=== PATIENT | male | born 1980 | race Caucasian/White ===

== ENCOUNTER 2017-05-11 23:48 | Outpatient (CLI) | payer MEDICAID | END 2017-05-11 23:49 | disposition critical access hospital (66) | LOC: EMS 23:48 | PROVIDERS: ATTEND Surgery | DX: R45.851 Suicidal ideations (principal) | CPT/HCPCS: A0425; A0429 ==

== ENCOUNTER 2017-05-12 00:09 | Emergency (ER) | payer MEDICAID ==
--- NOTE | 2017-05-12 00:23 | ED Physician Documentation ---
PD HPI MHE - Stated complaint Stated Complaint: SI - Chief complaint Chief Complaint: MHE - History obtained from History obtained from: Patient - History of Present Illness Primary symptom: Depression, Anxiety. No: Aggressive behavior (thoughts of aggression, but has not acted on them) Timing - onset: Today Pain level max: 0 Pain level now: 0 Similar symptoms before: Has not had sx before Recently seen: Not recently seen - Additional information Additional information: feels anxious, angry, I want to punch everything (per patient). started earlier today and progressed in severity. no apparent trigger for this, denies feeling this way previously except once, many years ago. he is pacing and in obvious distress, upset and appears afraid and anxious Review of Systems Cardiac: reports: Reviewed and negative Respiratory: reports: Reviewed and negative GI: reports: Reviewed and negative Neurologic: reports: Reviewed and negative Psychiatric: reports: Depressed, Anxiety. denies: Suicidal, Homicidal, Hallucinations, Delusions PD PAST MEDICAL HISTORY - Past Medical History Past Medical History: Yes Cardiovascular: Hypertension - Past Surgical History Past Surgical History: No - Present Medications Home Medications: Ambulatory Orders Medication Instructions Recorded Confirmed Fluoxetine HCl 20 mg PO DAILY 05/12/17 05/12/17 Lisinopril 20 mg PO DAILY 05/12/17 05/12/17 Metoprolol Succinate 200 mg PO DAILY 05/12/17 05/12/17 - Allergies Allergies/Adverse Reactions: Allergies Allergy/AdvReac Type Severity Reaction Status Date / Time No Known Drug Allergies Allergy Verified 05/12/17 00:18 - Social History Does the pt drink ETOH?: Yes PD ED PE NORMAL - Vitals Vital signs reviewed: Yes - General General: Alert and oriented X 3, Well developed/nourished, Other (pacing the room during HPI, brief ROS. he appears anxious, angry (but not threatening to me or staff), afraid, tearful at times) - HEENT HEENT: PERRL - Cardiac Cardiac: RRR, No murmur - Respiratory Respiratory: No respiratory distress, Clear bilaterally - Abdomen Abdomen: Soft, Non tender - Derm Derm: Normal color, Warm and dry - Neuro Neuro: Alert and oriented X 3, aircraft maintenance engineer 2-12 intact, No motor deficit, No sensory deficit, Normal speech Eye Opening: Spontaneous Motor: Obeys Commands Verbal: Oriented GCS Score: 15 PD ED PE EXPANDED - Psych Psych: Intoxicated / AOB, Tearful, Anxious, Agitated Results - Vitals Vitals: Oxygen O2 Source Room air - Labs Labs: Laboratory Tests 05/12/17 05/12/17 05/12/17 00:30 01:12 01:12 WBC 12.7 H RBC 5.02 Hgb 13.8 L Hct 41.9 L MCV 83.4 MCH 27.5 MCHC 33.0 RDW 13.6 Plt Count 234 MPV 8.2 Neut # 7.5 H Lymph # 4.0 H [place] # 0.9 Eos # 0.2 Baso # 0.1 Absolute Nucleated RBC 0.01 Nucleated RBC % 0.1 Sodium 142 Potassium 3.6 Chloride 106 Carbon Dioxide 23 Anion Gap 13.0 BUN 17 Creatinine 1.1 Estimated GFR (MDRD) 75 L Glucose 126 H Calcium 9.0 Urine Color YELLOW Urine Clarity CLEAR Urine pH 5.5 Ur Specific [place] 1.010 Urine Protein NEGATIVE Urine Glucose (UA) NEGATIVE Urine Ketones NEGATIVE Urine Occult Blood NEGATIVE Urine Nitrite NEGATIVE Urine Bilirubin NEGATIVE Urine Urobilinogen 0.2 (NORMAL) Ur Leukocyte Esterase NEGATIVE Ur Microscopic Review NOT INDICATED Urine Culture Comments NOT INDICATED Salicylates < 6.0 Urine Opiates Screen NEGATIVE Ur Oxycodone Screen NEGATIVE Urine Methadone Screen NEGATIVE Ur Propoxyphene Screen NEGATIVE Acetaminophen < 10 L Ur Barbiturates Screen NEGATIVE Ur Tricyclics Screen NEGATIVE Ur Phencyclidine Scrn NEGATIVE Ur Amphetamine Screen NEGATIVE U Methamphetamines Scrn NEGATIVE U Benzodiazepines Scrn NEGATIVE Urine Cocaine Screen NEGATIVE U Cannabinoids Screen POSITIVE H Ethyl Alcohol 161.3 PD MEDICAL DECISION MAKING - ED course Complexity details: reviewed results, re-evaluated patient, considered differential, d/w patient ED course: given IM Zyprexa with good effect, slept for several hours overnight. in AM, he was easily awoken to verbal stimulation, reports feeling much improved. he is calm, cooperative. he denies SI, denies anxiety or aggressive thoughts. seen by IBETH cardenas cleared for discharge home, which patient is comfortable with. Departure - Departure Disposition: 01 Home, Self Care Clinical Impression: Alcoholic intoxication, Anxiety, Depression Condition: Good Instructions: ED Depression, ED Alcohol Intoxication Comments: Follow up as per the social media project manager's recommendations Discharge Date/Time: 05/12/17 08:53
[2017-05-12] MEDS ORDERED: OLANZapine 10 MG VIAL IM ONE (00:35)
[2017-05-12] MEDS ORDERED: OLANZapine 10 MG VIAL IM STA (00:48)
[2017-05-12 01:25] LABS: BASOPHILS # (AUTO) 0.1 10^3/uL (0.0-0.1); BASOPHILS % (AUTO) 1.1 %; EOSINOPHILS # (AUTO) 0.2 10^3/uL (0.0-0.7); EOSINOPHILS % (AUTO) 1.5 %; HGB - HEMOGLOBIN 13.8 g/dL (14.0-18.0); LYMPHOCYTES % (AUTO) 31.6 %; MEAN CORPUSCULAR HEMOGLOBIN 27.5 pg (27.0-31.0); MEAN CORPUSCULAR VOLUME 83.4 fL (80.0-94.0); MEAN PLATELET VOLUME 8.2 fL (7.4-11.4); MONOCYTES # (AUTO) 0.9 10^3/uL (0.0-1.0); MONOCYTES % (AUTO) 6.9 %; NEUTROPHILS # (AUTO) 7.5 10^3/uL (1.5-6.6); NEUTROPHILS % (AUTO) 58.9 %; PLT - PLATELET COUNT 234 10^3/uL (130-450); RED BLOOD COUNT 5.02 10^6/uL (4.70-6.10); RED CELL DISTRIBUTION WIDTH 13.6 % (12.0-15.0); WHITE BLOOD COUNT 12.7 x10^3/uL (4.8-10.8)
[2017-05-12 01:26] LABS: MUDS CUTOFF CONCENTRATIONS CUTOFF CONC BELOW:
[2017-05-12 01:30] LABS: ACETAMINOPHEN < 10 ug/mL (10-30); BUN - BLOOD UREA NITROGEN 17 mg/dL (6-20); CARBON DIOXIDE - CO2 23 mmol/L (21-32); CHLORIDE 106 mmol/L (101-111); CREATININE 1.1 mg/dL (0.6-1.2); GFR - MDRD 75 (>89); GLUCOSE 126 mg/dL (70-100); SALICYLATE < 6.0 mg/dL; SODIUM 142 mmol/L (135-145)
[2017-05-12 01:35] LABS: BILIRUBIN,URINE NEGATIVE (NEGATIVE); GLUCOSE, URINE (UA) NEGATIVE (NEGATIVE); KETONES,URINE (UA) NEGATIVE (NEGATIVE); LEUKOCYTE ESTERASE, URINE NEGATIVE (NEGATIVE); NITRITE,URINE NEGATIVE (NEGATIVE); OCCULT BLOOD,URINE NEGATIVE (NEGATIVE); PH,URINE 5.5 PH (5.0-7.5); PROTEIN,URINE NEGATIVE (NEGATIVE); UROBILINOGEN,URINE 0.2 (NORMAL) E.U./dL (NORMAL)
[2017-05-12 01:44] LABS: AMPHETAMINE SCREEN,URINE NEGATIVE (NEGATIVE); BENZODIAZEPINES SCREEN, URINE NEGATIVE (NEGATIVE); CLARITY,URINE CLEAR (CLEAR); COCAINE SCREEN URINE NEGATIVE (NEGATIVE); METHADONE SCREEN, URINE NEGATIVE (NEGATIVE); METHAMPHETAMINES SCREEN, URINE NEGATIVE (NEGATIVE); OPIATE SCREEN, URINE NEGATIVE (NEGATIVE); OXYCODONE SCREEN, URINE NEGATIVE (NEGATIVE); PROPOXYPHENE SCREEN, URINE NEGATIVE (NEGATIVE); TRICYCLIC ANTIDEPRESSANT,URINE NEGATIVE (NEGATIVE)
[2017-05-12 08:54] VITALS: BP 164/100
== END 2017-05-12 08:53 | disposition home or self-care (01) ==
LOC: ED 00:09
DX: F10.120 Alcohol abuse with intoxication, uncomplicated (principal); F32.9 Major depressive disorder, single episode, unspecified; F41.9 Anxiety disorder, unspecified; I10 Essential (primary) hypertension
CPT/HCPCS: 36415; 80048; 80306; 80307; 80320; 80329; 81001; 81003; 85025; 87086; 96372; 99283; 99284

== ENCOUNTER 2018-02-13 17:14 | Emergency (ER) | payer MEDICAID ==
[2018-02-13] MEDS ORDERED: MELOXICAM 7.5 MG TABLET PO STA (17:59)
[2018-02-13] MEDS ORDERED: TETANUS/DIPHTHERIA/PERTUSSIS 0.5 ML SYRINGE IM ONE (18:00)
--- NOTE | 2018-02-13 18:00 | ED Physician Documentation ---
PD HPI LOWER EXT INJURY - Stated complaint Stated Complaint: L FOOT INJ - Chief complaint Chief Complaint: Ext Problem - History obtained from History obtained from: Patient - History of Present Illness PD HPI LOW EXT INJURY LOCATION: Left, Foot Type of injury: Fall (walking up stairs today) Where injury occurred: Home Timing - onset: Today Timing - duration: Hours (5) Timing - details: Gradual onset Pain level max: 5 Pain level now: 5 Improved by: Rest, Ice, Immobilization Worsened by: Moving, Palpating Associated symptoms: Tingling, Swelling. No: Weakness, Numbness Contributing factors: No: Anticoagulated, Prior ortho surgery, Prosthetic joint, Work related Similar symptoms before: Has not had sx before Recently seen: Not recently seen - Additional information Additional information: injured dorsum of foot on stairs Review of Systems Constitutional: denies: Fever GI: denies: Vomiting Neurologic: denies: Focal weakness, Numbness PD PAST MEDICAL HISTORY - Past Medical History Past Medical History: Yes Cardiovascular: Hypertension Respiratory: Sleep apnea Endocrine/Autoimmune: Type 2 diabetes Psych: Depression, Anxiety - Past Surgical History Past Surgical History: No HEENT: Tonsil/Adenoidectomy - Present Medications Home Medications: Ambulatory Orders Medication Instructions Recorded Confirmed Fluoxetine HCl 20 mg PO DAILY 05/12/17 05/12/17 Lisinopril 20 mg PO DAILY 05/12/17 05/12/17 Metoprolol Succinate 200 mg PO DAILY 05/12/17 05/12/17 Meloxicam [Mobic] 15 mg PO DAILY PRN #20 tablet 02/13/18 - Allergies Allergies/Adverse Reactions: Allergies Allergy/AdvReac Type Severity Reaction Status Date / Time No Known Drug Allergies Allergy Verified 02/13/18 17:29 - Social History Does the pt smoke?: Yes Smoking Status: Current every day smoker Does the pt drink ETOH?: Yes Does the pt have substance abuse?: Yes - Immunizations Immunizations are current?: Yes - POLST Patient has POLST: No PD ED PE NORMAL - Vitals Vital signs reviewed: Yes - General General: Alert and oriented X 3, No acute distress - HEENT HEENT: Moist mucous membranes - Derm Derm: Warm and dry - Extremities Extremities: Other (L foot - Swelling and ecchymosis to the dorsum of the foot. Abrasion present. Tenderness over the dorsum. NVI) - Neuro Neuro: Alert and oriented X 3 Results - Vitals Vitals: Vital Signs - 24 hr 02/13/18 02/13/18 17:24 19:01 Temperature 36.6 C 37.1 C Heart Rate 102 H 90 Respiratory 18 20 Rate Blood Pressure 174/116 H 187/120 H O2 Saturation 98 99 Oxygen O2 Source Room air - Rads (name of study) L foot xray Radiology: Prelim report reviewed, EMP read contemporaneously, See rad report (No acute bony abnormality) PD MEDICAL DECISION MAKING - ED course Complexity details: reviewed results, re-evaluated patient, considered differential, d/w patient ED course: Patient with a left foot sprain/contusion. Placed in a postoperative shoe and given crutches. Wound care performed. Tdap given. We will continue supportive care and follow-up with his doctor for further evaluation in 1 week if he is still having symptoms. Patient counseled regarding signs and symptoms for which I believe and urgent re-evaluation would be necessary. Patient with good understanding of and agreement to plan and is comfortable going home at this time This document was made in part using voice recognition software. While efforts are made to proofread this document, sound alike and grammatical errors may occur. Departure - Departure Disposition: 01 Home, Self Care Clinical Impression: Sprain of left foot Qualifiers: Encounter type: initial encounter Qualified Code(s): S93.602A - Unspecified sprain of left foot, initial encounter Condition: Good Instructions: ED Sprain Foot Follow-Up: your,doctor in 1 week if not better [Other] Prescriptions: Meloxicam [Mobic] 15 mg PO DAILY PRN #20 tablet PRN Reason: pain Comments: Your x-ray is normal today. You may bear weight as tolerated. Return if you worsen. Follow-up with your doctor in 1 week if not better. Forms: Activity restrictions Discharge Date/Time: 02/13/18 19:14
--- NOTE | 2018-02-13 18:48 | XRAY Report ---
Reason: fall Procedure Date: 02/13/2018 Accession Number: [id number] / [id number] Procedure: XR - Foot 3 View LT CPT Code: FULL RESULT: EXAM: LEFT FOOT RADIOGRAPHY EXAM DATE: 02/13/2018 06:33 PM. CLINICAL HISTORY: Acute left foot pain and swelling status post trauma during a fall. COMPARISON: None. TECHNIQUE: 3 views. FINDINGS: Bones: Normal bone mineralization. No fractures or bone lesions. Joints: Normal. No subluxations. Soft Tissues: Localized soft tissue swelling dorsal to the metatarsal bones. The remaining soft tissue structures are unremarkable. IMPRESSION: 1. Localized soft tissue swelling dorsal to the metatarsal bones. 2. No fracture, subluxation or radiopaque foreign object. RADIA
[2018-02-13 19:01] VITALS: BP 187/120
== END 2018-02-13 19:14 | disposition home or self-care (01) ==
LOC: ED 17:14
DX: S93.602A Unspecified sprain of left foot, initial encounter (principal); S90.32XA Contusion of left foot, initial encounter; S90.812A Abrasion, left foot, initial encounter; W22.09XA Striking against other stationary object, initial encounter; Y93.01 Activity, walking, marching and hiking; Y92.009 Unspecified place in unspecified non-institutional (private) residence as the place of occurrence of the external cause; Z23 Encounter for immunization; I10 Essential (primary) hypertension; E11.9 Type 2 diabetes mellitus without complications; F17.200 Nicotine dependence, unspecified, uncomplicated
CPT/HCPCS: 73630; 90471; 90715; 99283; A9270

== ENCOUNTER 2018-07-24 05:45 | Emergency (ER) | payer MEDICAID ==
[2018-07-24] MEDS ORDERED: IPRATROPIUM/ALBUTEROL 3 ML NEB INH STA (06:01)
--- NOTE | 2018-07-24 06:07 | ED Physician Documentation ---
PD HPI URI - Stated complaint Stated Complaint: DRY COUGH - Chief complaint Chief Complaint: Resp - History obtained from History obtained from: Patient - History of Present Illness Timing - onset: How many days ago (2-3) Timing details: Gradual onset Pain level max: 0 Pain level now: 0 Associated symptoms: Nasal congestion, Rhinorrhea, Dry cough, Dyspnea (tightness). No: Fever, Chills, Sore throat, Hemoptysis, Chest pain, NVD Contributing factors: Other (smokes 1ppd) Similar symptoms before: Other (states dx with pneumonia last month and this feels similar. Is on lisinopril for HTN.) Review of Systems Constitutional: denies: Fever, Chills GI: denies: Vomiting, Diarrhea Skin: denies: Rash Musculoskeletal: denies: Neck pain, Back pain Neurologic: denies: Headache PD PAST MEDICAL HISTORY - Past Medical History Past Medical History: Yes Cardiovascular: Hypertension Respiratory: Pneumonia, Sleep apnea Endocrine/Autoimmune: Type 2 diabetes Psych: Depression, Anxiety - Past Surgical History Past Surgical History: Yes HEENT: Tonsil/Adenoidectomy - Present Medications Home Medications: Ambulatory Orders Medication Instructions Recorded Confirmed Fluoxetine HCl 20 mg PO DAILY 05/12/17 05/12/17 Lisinopril 20 mg PO DAILY 05/12/17 05/12/17 Metoprolol Succinate 200 mg PO DAILY 05/12/17 05/12/17 Meloxicam [Mobic] 15 mg PO DAILY PRN #20 tablet 02/13/18 Albuterol Sulf [Ventolin Hfa 1 - 2 puffs INH Q4HR PRN #1 inhaler 07/24/18 Inhaler] predniSONE [Deltasone] 10 mg PO [id number] #42 tab 07/24/18 - Allergies Allergies/Adverse Reactions: Allergies Allergy/AdvReac Type Severity Reaction Status Date / Time No Known Drug Allergies Allergy Verified 07/24/18 05:59 - Social History Does the pt smoke?: Yes Smoking Status: Current every day smoker Does the pt drink ETOH?: Yes Does the pt have substance abuse?: Yes - Immunizations Immunizations are current?: Yes - POLST Patient has POLST: No PD ED PE NORMAL - Vitals Vital signs reviewed: Yes - General General: Alert and oriented X 3, No acute distress, Well developed/nourished - HEENT HEENT: Ears normal, Moist mucous membranes, Pharynx benign - Neck Neck: Supple, no meningeal sign - Cardiac Cardiac: RRR, Strong equal pulses - Respiratory Respiratory: No respiratory distress, Other (diminished BS bilateral R>L) - Abdomen Abdomen: Soft, Non tender, Non distended - Derm Derm: Warm and dry - Extremities Extremities: No edema, No calf tenderness / cord - Neuro Neuro: Alert and oriented X 3 - Psych Psych: Normal mood, Normal affect Results - Vitals Vitals: Vital Signs - 24 hr 07/24/18 07/24/18 07/24/18 05:50 06:12 06:37 Temperature 36.3 C L Heart Rate 102 H 85 87 Respiratory 18 18 16 Rate Blood Pressure 194/104 H O2 Saturation 98 Oxygen O2 Source Room air - Rads (name of study) cxr Radiology: Prelim report reviewed, EMP read contemporaneously, See rad report (Mild to moderate CHF pattern. ) PD MEDICAL DECISION MAKING - ED course Complexity details: reviewed results, re-evaluated patient, considered differential, d/w patient ED course: 38-year-old male, well-appearing, nontoxic. Afebrile. No hypoxia. No respiratory distress. Feels better after nebulizer treatment and steroids. Will place on albuterol and steroids for home. May have a CHF component as well, will follow up with his doctor for further care of this. No evidence of pneumonia. Patient counseled regarding signs and symptoms for which I believe and urgent re-evaluation would be necessary. Patient with good understanding of and agreement to plan and is comfortable going home at this time This document was made in part using voice recognition software. While efforts are made to proofread this document, sound alike and grammatical errors may occur. Departure - Departure Disposition: 01 Home, Self Care Clinical Impression: Upper respiratory tract infection Qualifiers: URI type: unspecified viral URI Qualified Code(s): J06.9 - Acute upper respiratory infection, unspecified Condition: Good Instructions: ED Viral Syndrome Follow-Up: Kody Soto MD [Primary Care Provider] - Within 1 week Prescriptions: Albuterol Sulf [Ventolin Hfa Inhaler] 1 - 2 puffs INH Q4HR PRN #1 inhaler PRN Reason: Shortness Of Air/Wheezing predniSONE [Deltasone] 10 mg PO [id number] #42 tab Comments: Use the medications as prescribed. Return if you worsen. You may also have a component of congestive heart failure on your chest x-ray. This should be further evaluated with your doctor within the next week. You should likely have an echocardiogram and blood work performed.
[2018-07-24] MEDS ORDERED: ALBUTEROL NEB 2.5 MG/3 ML INH STA (06:17)
[2018-07-24] MEDS ORDERED: predniSONE 20 MG TABLET PO STA (06:17)
--- NOTE | 2018-07-24 06:47 | XRAY Report ---
Reason: cough Procedure Date: 07/24/2018 Accession Number: [id number] / [id number] Procedure: XR - Chest 2 View X-Ray CPT Code: 22160 FULL RESULT: EXAM: CHEST RADIOGRAPHY EXAM DATE: 07/24/2018 06:32 AM. CLINICAL HISTORY: Shortness of breath, nonproductive cough for 2 days, difficulty breathing on the left side. COMPARISON: None. TECHNIQUE: 2 views. FINDINGS: Lungs/Pleura: There is interlobular septal thickening. No significant pulmonary consolidation. There is pulmonary venous congestion. No definite pneumothorax. No significant effusion. Mediastinum: Mild to moderate enlargement of the cardiac silhouette. Other: None. IMPRESSION: Mild to moderate CHF pattern. RADIA
[2018-07-24 07:11] VITALS: BP 192/127
== END 2018-07-24 07:02 | disposition home or self-care (01) ==
LOC: ED 05:45
DX: J06.9 Acute upper respiratory infection, unspecified (principal); F17.210 Nicotine dependence, cigarettes, uncomplicated; I10 Essential (primary) hypertension; E11.9 Type 2 diabetes mellitus without complications
CPT/HCPCS: 71046; 94640; 94664; 99283; J7512

== ENCOUNTER 2018-09-04 07:45 | Outpatient (CLI) | payer MEDICAID ==
[2018-09-04 12:48] LABS: BASOPHILS # (AUTO) 0.1 10^3/uL (0.0-0.1); BASOPHILS % (AUTO) 0.5 %; EOSINOPHILS # (AUTO) 0.2 10^3/uL (0.0-0.7); EOSINOPHILS % (AUTO) 1.5 %; HGB - HEMOGLOBIN 13.1 g/dL (14.0-18.0); LYMPHOCYTES # (AUTO) 2.2 10^3/uL (1.5-3.5); LYMPHOCYTES % (AUTO) 20.7 %; MEAN CORPUSCULAR HEMOGLOBIN 25.8 pg (27.0-31.0); MEAN CORPUSCULAR HGB CONC 30.6 g/dL (32.0-36.0); MEAN CORPUSCULAR VOLUME 84.4 fL (80.0-94.0); MEAN PLATELET VOLUME 10.7 fL (7.4-11.4); MONOCYTES # (AUTO) 0.7 10^3/uL (0.0-1.0); MONOCYTES % (AUTO) 6.4 %; NEUTROPHILS # (AUTO) 7.6 10^3/uL (1.5-6.6); NEUTROPHILS % (AUTO) 70.4 %; PLT - PLATELET COUNT 203 10^3/uL (130-450); RED BLOOD COUNT 5.07 10^6/uL (4.70-6.10); RED CELL DISTRIBUTION WIDTH 15.9 % (12.0-15.0); WHITE BLOOD COUNT 10.8 x10^3/uL (4.8-10.8)
[2018-09-04 13:08] LABS: ALBUMIN 3.9 g/dL (3.2-5.5); ALBUMIN/GLOBULIN RATIO 1.2 (1.0-2.2); ALKALINE PHOSPHATASE 56 IU/L (42-121); ALT ALANINE AMINOTRANSFERASE 28 IU/L (10-60); AST ASPARTATE AMINOTRANSFERASE 21 IU/L (10-42); BILIRUBIN,TOTAL 1.3 mg/dL (0.2-1.0); BUN - BLOOD UREA NITROGEN 22 mg/dL (6-20); CALCIUM 8.8 mg/dL (8.5-10.3); CARBON DIOXIDE - CO2 26 mmol/L (21-32); CHLORIDE 109 mmol/L (101-111); CHOL/HDL RATIO 5.2 (<5.0); CHOLESTEROL 131 mg/dL; CREATININE 1.4 mg/dL (0.6-1.2); GFR - MDRD 56 (>89); GLUCOSE 155 mg/dL (70-100); HDL CHOLESTEROL 25 mg/dL; LDL CHOLESTEROL,CALCULATED 91 mg/dL; LDL/HDL RATIO 3.6 (<3.6); SODIUM 143 mmol/L (135-145); TOTAL PROTEIN 7.1 g/dL (6.7-8.2); VLDL CHOLESTEROL 15 mg/dL
[2018-09-04 13:11] LABS: HEMOGLOBIN A1C 0.72 g/dL; HEMOGLOBIN A1C % 6.9 % (4.6-6.2)
== END 2018-09-04 23:59 | disposition home or self-care (01) ==
LOC: LAB.N 07:45
PROVIDERS: ATTEND Family Medicine
DX: E78.5 Hyperlipidemia, unspecified (principal); E11.9 Type 2 diabetes mellitus without complications; I10 Essential (primary) hypertension; F41.8 Other specified anxiety disorders
CPT/HCPCS: 36415; 80053; 80061; 83036; 83721; 84443; 85025

== ENCOUNTER 2018-09-05 09:11 | Outpatient (CLI) | payer MEDICAID ==
[~2018-09-05 09:11] MED LIST: ALBUTEROL NEB 2.5 MG/3 ML INH ONE
== END 2018-09-05 09:12 | disposition home or self-care (01) ==
LOC: RT 09:11
PROVIDERS: ATTEND Family Medicine
DX: J45.909 Unspecified asthma, uncomplicated (principal)
CPT/HCPCS: 94060

== ENCOUNTER 2018-12-01 20:26 | Observation (INO) | payer MEDICAID ==
[2018-12-01] MEDS ORDERED: KETOROLAC 30 MG/ML VIAL IVP STA (20:52)
[2018-12-01] MEDS ORDERED: SODIUM CHLORIDE 0.9% 1,000 ML IV ONE (20:52)
[2018-12-01] MEDS ORDERED: HYDROmorphone 1 MG/ML CARPUJECT IVP STA (20:52)
[2018-12-01] MEDS ORDERED: ONDANSETRON 4 MG/2 ML VIAL IVP STA (20:52)
--- NOTE | 2018-12-01 20:53 | ED Physician Documentation ---
PD HPI ABD PAIN - Stated complaint Stated Complaint: ABD PX RT SIDE, SOA - Chief complaint Chief Complaint: Abd Pain - History obtained from History obtained from: Patient - History of Present Illness Timing - onset: Other (For about a week he has had mild right-sided abdominal pain, it is severe today for the last 5 hours. Most of the history is from the significant other as he is in too much pain to talk.) Review of Systems Ten Systems: 10 systems reviewed and negative Constitutional: reports: Sweats. denies: Fever, Chills GI: reports: Abdominal Pain, Nausea PD PAST MEDICAL HISTORY - Past Medical History Cardiovascular: Hypertension Respiratory: Pneumonia, Sleep apnea Neuro: None Endocrine/Autoimmune: Type 2 diabetes GI: None : None HEENT: None Psych: Depression, Anxiety Musculoskeletal: None Derm: None - Past Surgical History Past Surgical History: Yes General: Splenectomy HEENT: Tonsil/Adenoidectomy - Present Medications Home Medications: Ambulatory Orders Medication Instructions Recorded Confirmed Fluoxetine HCl 20 mg PO DAILY 05/12/17 05/12/17 Lisinopril 20 mg PO DAILY 05/12/17 05/12/17 Metoprolol Succinate 200 mg PO DAILY 05/12/17 05/12/17 Meloxicam [Mobic] 15 mg PO DAILY PRN #20 tablet 02/13/18 Albuterol Sulf [Ventolin Hfa 1 - 2 puffs INH Q4HR PRN #1 inhaler 07/24/18 Inhaler] predniSONE [Deltasone] 10 mg PO [id number] #42 tab 07/24/18 - Allergies Allergies/Adverse Reactions: Allergies Allergy/AdvReac Type Severity Reaction Status Date / Time No Known Drug Allergies Allergy Verified 12/01/18 20:29 - Social History Does the pt smoke?: Yes Smoking Status: Current every day smoker Does the pt drink ETOH?: No Does the pt have substance abuse?: No Substance Use and Type: Marijuana - Immunizations Immunizations are current?: Yes - POLST Patient has POLST: No PD ED PE NORMAL - Vitals Vital signs reviewed: Yes - General General: Other (He is writhing in pain, hyperventilating) - HEENT HEENT: PERRL, EOMI - Neck Neck: Supple, no meningeal sign, No bony TTP - Cardiac Cardiac: RRR, No murmur - Respiratory Respiratory: No respiratory distress, Clear bilaterally - Abdomen Abdomen: Normal bowel sounds, Soft, Other (Quite tender on the right abdomen without surgical signs) - Back Back: No CVA TTP, No spinal TTP - Derm Derm: Normal color, Other (Sweaty) - Extremities Extremities: No edema, No calf tenderness / cord - Neuro Neuro: Alert and oriented X 3, Normal speech - Psych Psych: Normal mood, Normal affect Results - Vitals Vitals: Vital Signs - 24 hr 12/01/18 12/01/18 20:29 22:34 Temperature 36.6 C Heart Rate 116 H 104 H Respiratory 22 17 Rate Blood Pressure 158/118 H 143/63 H O2 Saturation 98 100 Oxygen O2 Source Room air - Labs Labs: Laboratory Tests 12/01/18 12/01/18 12/01/18 20:46 20:46 21:20 WBC 13.4 H RBC 5.26 Hgb 13.3 L Hct 42.6 MCV 81.0 MCH 25.3 L MCHC 31.2 L RDW 17.6 H Plt Count 234 MPV 10.2 Neut # (Auto) 9.4 H Lymph # (Auto) 3.0 [place] # (Auto) 0.8 Eos # (Auto) 0.1 Baso # (Auto) 0.1 Absolute Nucleated RBC 0.00 Nucleated RBC % 0.0 Sodium 142 Potassium 3.3 L Chloride 102 Carbon Dioxide 27 Anion Gap 13.0 BUN 24 H Creatinine 1.5 H Estimated GFR (MDRD) 52 L Glucose 156 H Calcium 9.2 Total Bilirubin 1.1 H AST 25 ALT 21 Alkaline Phosphatase 78 Total Protein 7.6 Albumin 4.1 Globulin 3.5 Albumin/Globulin Ratio 1.2 Lipase 31 Urine Color YELLOW Urine Clarity HAZY Urine pH 6.0 Ur Specific [place] >=1.030 H Urine Protein 100 H Urine Glucose (UA) NEGATIVE Urine Ketones NEGATIVE Urine Occult Blood NEGATIVE Urine Nitrite NEGATIVE Urine Bilirubin NEGATIVE Urine Urobilinogen 0.2 (NORMAL) Ur Leukocyte Esterase NEGATIVE Urine RBC 0-5 Urine WBC 0-3 Ur Squamous Epith Cells FEW Squamous Urine Bacteria None Seen Urine Sperm PRESENT Ur Microscopic Review INDICATED Urine Culture Comments NOT INDICATED - Rads (name of study) CT KUB Radiology: EMP read contemporaneously (1. Findings which may reflect pancreatitis. The pancreatic head is swollen with adjacent peripancreatic edema and lymphadenopathy. There is also small amount of ascites and superficial soft tissue swelling about the mid abdomen. 2. Small right pleural effusion hich may be reactive from the intra-abdominal process/pancreatitis or reflect a primary lung process given the adjacent right lower lung atelectasis versus consolidation. 3. Hepatosplenomegaly. 4. 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 Both proximal femurs have a pistol wrapper stitcher configuration and there are cysts in the adjacent the acetabula. 5. Appendicolith without CT findings of appendicitis. ) PD MEDICAL DECISION MAKING - ED course ED course: This is a 38-year-old gentleman who has had right-sided abdominal pain. Was initially indolent and intermittent for a week but is much more severe today. He does not drink alcohol. He had a remote diagnostic laparoscopy for splenic biopsy showing non-Hodgkin's lymphoma at the age of 18 which was treated with chemotherapy. His pain was difficult to control here and required significant divided doses of narcotics to get him comfortable. Case discussed by phone with the on-call surgeon, Dr. Max Call after the results of the CT. It is a very strange case, has CT evidence of pancreatitis without biochemical evidence of pancreatitis. There is no biochemical evidence of an obstructive biliary/hepatic pattern. He may have right lower lobe pneumonia with a reactive pleural effusion and this is treated with antibiotics that would also cover intra-abdominal source. Dr. Call will follow along and consult but defers to the hospitalist for admission, recommends an MRCP in the morning. Spoke with Dr. Dean for admission at 11:25 PM. Departure - Departure Disposition: ED Place in Observation Clinical Impression: Abdominal pain Qualifiers: Abdominal location: unspecified location Qualified Code(s): R10.9 - Unspecified abdominal pain Pancreatitis Qualifiers: Chronicity: acute Pancreatitis type: unspecified pancreatitis type Acute pancreatitis complication: no infection or necrosis Qualified Code(s): K85.90 - Acute pancreatitis without necrosis or infection, unspecified Condition: Fair Record reviewed to determine appropriate education?: Yes
[2018-12-01 20:56] LABS: BASOPHILS # (AUTO) 0.1 10^3/uL (0.0-0.1); BASOPHILS % (AUTO) 0.6 %; EOSINOPHILS # (AUTO) 0.1 10^3/uL (0.0-0.7); HGB - HEMOGLOBIN 13.3 g/dL (14.0-18.0); LYMPHOCYTES % (AUTO) 22.1 %; MEAN CORPUSCULAR HEMOGLOBIN 25.3 pg (27.0-31.0); MEAN CORPUSCULAR HGB CONC 31.2 g/dL (32.0-36.0); MEAN PLATELET VOLUME 10.2 fL (7.4-11.4); MONOCYTES # (AUTO) 0.8 10^3/uL (0.0-1.0); MONOCYTES % (AUTO) 6.2 %; NEUTROPHILS # (AUTO) 9.4 10^3/uL (1.5-6.6); NEUTROPHILS % (AUTO) 69.7 %; PLT - PLATELET COUNT 234 10^3/uL (130-450); RED BLOOD COUNT 5.26 10^6/uL (4.70-6.10); RED CELL DISTRIBUTION WIDTH 17.6 % (12.0-15.0); WHITE BLOOD COUNT 13.4 x10^3/uL (4.8-10.8)
[2018-12-01] MEDS ORDERED: MORPHINE 10 MG/ML VIAL IVP STA ×2 (21:05→21:23)
[2018-12-01 21:07] LABS: ALBUMIN 4.1 g/dL (3.2-5.5); ALBUMIN/GLOBULIN RATIO 1.2 (1.0-2.2); BILIRUBIN,TOTAL 1.1 mg/dL (0.2-1.0); CALCIUM 9.2 mg/dL (8.5-10.3); CREATININE 1.5 mg/dL (0.6-1.2); TOTAL PROTEIN 7.6 g/dL (6.7-8.2)
[2018-12-01 21:36] LABS: BILIRUBIN,URINE NEGATIVE (NEGATIVE); GLUCOSE, URINE (UA) NEGATIVE (NEGATIVE); KETONES,URINE (UA) NEGATIVE (NEGATIVE); LEUKOCYTE ESTERASE, URINE NEGATIVE (NEGATIVE); NITRITE,URINE NEGATIVE (NEGATIVE); OCCULT BLOOD,URINE NEGATIVE (NEGATIVE); PROTEIN,URINE 100 mg/dL (NEGATIVE); UROBILINOGEN,URINE 0.2 (NORMAL) E.U./dL (NORMAL)
[2018-12-01 21:37] LABS: CLARITY,URINE HAZY (CLEAR)
[2018-12-01 21:47] LABS: BACTERIA,URINE None Seen /HPF (None Seen); RBC,URINE 0-5 /HPF (0-5); SPERM,URINE PRESENT; SQUAMOUS EPITHELIAL CELL,UR FEW Squamous (<= Few)
--- NOTE | 2018-12-01 23:00 | CT Report ---
Reason: R abd pain Procedure Date: 12/01/2018 Accession Number: [id number] / [id number] Procedure: CT - Abdomen/Pelvis WO CPT Code: FULL RESULT: EXAM: CT ABDOMEN AND PELVIS (CT KUB) EXAM DATE: 12/01/2018 10:38 PM. CLINICAL HISTORY: R abd pain. COMPARISONS: None. TECHNIQUE: Routine axial helical CT imaging was performed through the abdomen and pelvis without IV contrast. Reconstructions: Coronal and sagittal. In accordance with CT protocol optimization, one or more of the following dose reduction techniques were utilized for this exam: automated exposure control, adjustment of mA and/or KV based on patient size, or use of iterative reconstructive technique. FINDINGS: Lung Bases: Right lower lobe multisegmental opacities and small right pleural effusion. Right Kidney/Ureter: No stones, hydronephrosis, or hydroureter. No perinephric fat stranding. Left Kidney/Ureter: No stones, hydronephrosis, or hydroureter. No perinephric fat stranding. Other Solid Organs: Head of the pancreas is swollen with adjacent peripancreatic edema which extends along the retroperitoneum into the pelvis. The liver is globally enlarged with the longitudinal dimension of the right lobe measuring 22.3 cm. The spleen is enlarged measuring 14.9 cm. Gallbladder/Bile Ducts: Unremarkable. Peritoneal Cavity: Small amount of ascites. Lymph nodes in the retroperitoneum are more notable for number than size and located predominantly adjacent to the pancreas. Bowel is normal in contour and caliber. Appendicolith (image 90 series 6) and a normal caliber appendix. Pelvic Organs: No bladder stones or wall thickening. Noncontrast images of the visualized pelvic organs are unremarkable. Vasculature: Unremarkable. Other: Soft tissue swelling along the anterior and lateral abdomen and mid back. Both hips show cyst formation in the lateral aspects of the acetabula and pistol usability strategist configuration of the proximal femurs. IMPRESSION: 1. Findings which may reflect pancreatitis. The pancreatic head is swollen with adjacent peripancreatic edema and lymphadenopathy. There is also small amount of ascites and superficial soft tissue swelling about the mid abdomen. 2. Small right pleural effusion which may be reactive from the intra-abdominal process/pancreatitis or reflect a primary lung process given the adjacent right lower lung atelectasis versus consolidation. 3. Hepatosplenomegaly. 4. 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 Both proximal femurs have a pistol usability strategist configuration and there are cysts in the adjacent the acetabula. 5. Appendicolith without CT findings of appendicitis. RADIA
[2018-12-01] MEDS ORDERED: cefTRIAXone 2 GM in SODIUM CHLORIDE 0.9% MINIBAG 100 ML IV STA (23:14)
[2018-12-01] MEDS ORDERED: metroNIDAZOLE 500 MG/100 ML 500 MG/100 ML BAG IV STA (23:14)
[2018-12-01] MEDS ORDERED: ONDANSETRON 4 MG/2 ML VIAL IVP PRN (23:26)
--- NOTE | 2018-12-01 23:42 | HISTORY & PHYSICAL EXAMINATION ---
Chief Complaint - Chief Complaint Chief Complaint: right lower quadrant abdominal pain History of Present Illness - Admitted From Admitted From:: [facility] ED - History Obtained From Records Reviewed: yes History obtained from: patient - History of Present Illness HPI Comment/Other: Patient is a 38 y/o male who presented to the ED with complain of right lower quadrant abdominal pain. Onset was 2 weeks. Initially it was mild and intermittent but yesterday the pain became more intense. At its worst the pain is rated 8/10. It is worse with breathing. He denies chest pain but is dyspneic due to the abdominal pain. He denies nausea, vomiting or diarrhea. His last BM was a couple hours before presenting to the ED. On exam his abdomen is obese, however it seems more distended/ bloated. Bowel sounds are present. He has rebound tenderness and guarding. Rovsing's sign is positive. He also has pain just distal to his umbilicus. CT scan of the abdomen/pelvis done showed peripancreatic fluid and suggested pancreatitis. There was also an appendicolith noted. The was also small ascites, small right pleural effusion and superficial soft tissue swelling about the mid abdomen. As a result of the above he is being admitted for further treatment. History - Past Medical History Cardiovascular: reports: Hypertension Respiratory: reports: Pneumonia, Sleep apnea Neuro: reports: None Endocrine/Autoimmune: reports: Type 2 diabetes GI: reports: None : reports: None HEENT: reports: None Psych: reports: Depression, Anxiety Musculoskeletal: reports: None Derm: reports: None MRSA Hx?: Yes - Past Surgical History General: reports: Other (Laparoscopy and Biopsy of spleen) HEENT: reports: Tonsil/Adenoidectomy - Family & Social History Family History Comment/Other: He reports an extensive history of [place], CVA, HTN, unspecified cancer, depression, bipolar disorder in his grandfathers on both sides of the family Social History Notes: He lives at home with his and daughter. He rarely drinks alcohol. He smokes about 1ppd and has been smoking for about 30 years. He uses marijuana and has a history of methamphetamine abuse. He last used regularly 2 years ago but he has used at least once since then. - POLST Patient has POLST: No POLST Status: Full Code Meds/Allgy - Home Medications Home Medications: Ambulatory Orders Medication Instructions Recorded Confirmed Fluoxetine HCl 20 mg PO DAILY 05/12/17 05/12/17 Lisinopril 20 mg PO DAILY 05/12/17 05/12/17 Metoprolol Succinate 200 mg PO DAILY 05/12/17 05/12/17 Meloxicam [Mobic] 15 mg PO DAILY PRN #20 tablet 02/13/18 Albuterol Sulf [Ventolin Hfa 1 - 2 puffs INH Q4HR PRN #1 inhaler 07/24/18 Inhaler] predniSONE [Deltasone] 10 mg PO [id number] #42 tab 07/24/18 - Allergies Allergies/Adverse Reactions: Allergies Allergy/AdvReac Type Severity Reaction Status Date / Time No Known Drug Allergies Allergy Verified 12/01/18 20:29 Review of Systems - Constitutional Constitutional: denies: Fever, Chills, Weakness - Eyes Eyes: denies: Pain, Blurred vision, Vision loss, Dipolpia - Ears, Nose & Throat Ears, Nose & Throat: denies: Vertigo, Sore throat - Cardiovascular Cariovascular: reports: Palpitations, Edema. denies: Chest pain, Exertional dyspnea - Respiratory Respiratory: reports: SOB at rest. denies: Cough, Sputum production, Wheezing - Gastrointestinal Gastrointestinal: reports: Abdominal pain, Abdominal distention, Bloating. denies: Constipation, Diarrhea, Change in bowel habits, Black stools, Bloody stools, Nausea, Vomiting, Coffee grounds emesis, Reflux/heartburn - Genitourinary Genitourinary: denies: Dysuria, Frequency, Urgency, Hematuria, Incontinence, Flank pain - Musculoskeletal Musculoskeletal: denies: Muscle pain, Back pain, Muscle aches - Integumentary Integumentary: denies: Rash, Pruritis, Lesions, Dryness - Neurological Neurological: denies: General weakness, Focal weakness, Headache, Dizziness, Numbness - Psychiatric Psychiatric: reports: Depression, Anxiety - Endocrine Endocrine: denies: Polyuria, Polydypsia - Hematologic/Lymphatic Hematologic/Lymphatic: denies: Anemia, Bruising, Petechiae Prior Level of Functionality: He is independent of activities of daily living. Exam - Vital Signs Vital Signs: Vital Signs x48h Temp Pulse Resp BP Pulse Ox 12/01/18 23:00 100 18 157/79 H 99 12/01/18 22:34 104 H 17 143/63 H 100 12/01/18 20:29 36.6 C 116 H 22 158/118 H 98 - Physical Exam General Appearance: positive: Alert, Moderate distress, Severe distress, Other (Restless) Eyes Bilateral: positive: Normal inspection, PERRL, EOMI ENT: positive: Other (Patient loosing some teeth) Neck: positive: Other (Obese neck) Respiratory: positive: Other (shallow breaths and mildly dyspneic) Cardiovascular: positive: No murmur, Tachycardia Back: positive: Nml inspection Skin: positive: Color nml, No rash, Warm, Dry Extremities: positive: Non-tender, Full ROM, Nml appearance, Pedal edema (non pitting) Neurologic/Psychiatric: positive: Oriented x3, CN's nml (2-12), Motor nml, Sensation nml Conclusion/Plan - Problem List (1) Pancreatitis Conclusion/Plan: Etiology not yet determined Patient NPO. IV hydration. Pain management with dilaudid Check lipid profile. Trend Lipase Qualifiers: Chronicity: acute Pancreatitis type: unspecified pancreatitis type Acute pancreatitis complication: no infection or necrosis Qualified Code(s): K85.90 - Acute pancreatitis without necrosis or infection, unspecified (2) Appendicitis Conclusion/Plan: In light of very specific right lower quadrant abdominal pain, Positive Rovsing's sign, rebound tenderness and presence of appendicolith Appendicitis is highly suspected. Blood cultures pending Patient on rocephin and flagyl. Dr Call (General Surgery) was contacted by the ED. Will place formal consult (3) Pleural effusion Conclusion/Plan: Bibasilar. R>L Suspect more likely reactive 2/2 pancreatitis than a pneumonia However, patient on empiric antibiotics (4) NATASHA on CPAP Conclusion/Plan: Home CPA initiated (5) Diabetes mellitus Conclusion/Plan: Patient has not been successful in controlling with diet and exercise. He is currently working with his PCP and will likely start oral medications and/or insulin shortly. Accu checks SSI Qualifiers: Diabetes mellitus type: type 2 (6) Hypertension Conclusion/Plan: On metoprolol and lisinopril (7) Depression Conclusion/Plan: On fluoxetine Qualifiers: Depression Type: unspecified Qualified Code(s): F32.9 - Major depressive disorder, single episode, unspecified - Lab Results Fish Bones: 12/01/18 20:46 12/01/18 20:46 Core Measures - Anticipated LOS I expect patient to be DC'd or transferred within 96 hours.: Yes - DVT/VTE - Prophylaxis VTE/DVT Device ordered at admit?: Yes
[2018-12-01] MEDS ORDERED: SODIUM CHLORIDE 0.9% 1,000 ML IV SCH (23:45)
--- NOTE | 2018-12-01 23:55 | XRAY Report ---
Reason: cough, abn abd ct Procedure Date: 12/01/2018 Accession Number: [id number] / [id number] Procedure: XR - Chest 2 View X-Ray CPT Code: 09799 FULL RESULT: EXAM: CHEST RADIOGRAPHY EXAM DATE: 12/01/2018 11:42 PM. CLINICAL HISTORY: Cough, abn abd ct. COMPARISON: CHEST 2 VIEW 07/24/2018 6:25 AM ABDOMEN/PELVIS W/O 12/01/2018 10:28 PM. TECHNIQUE: 2 views. FINDINGS: Lungs/Pleura: Pulmonary vascular congestion. Atelectasis or consolidation at the right base with moderate right pleural effusion. Small left pleural effusion. Mild left basilar atelectasis or infiltrate. No pneumothorax. Mediastinum: Mild cardiomegaly. Other: None. IMPRESSION: 1. Cardiomegaly and pulmonary vascular congestion. 2. Bibasilar atelectasis or infiltrate and bilateral pleural effusions, right worse than left. RADIA
[2018-12-02] MEDS: HYDROmorphone 0.5 MG/0.5 ML SYRINGE IVP PRN ×5 (01:18→08:21)
[2018-12-02] MEDS: SODIUM CHLORIDE FLUSH 0.9% 10 ML SYRINGE IVP PRN ×2 (01:19→05:27)
[2018-12-02] MEDS: SODIUM CHLORIDE FLUSH 0.9% 10 ML SYRINGE IVP SCH ×3 (02:32→15:54)
[2018-12-02] MEDS ORDERED: fentaNYL 100 MCG/2 ML VIAL IVP STA (03:55)
[2018-12-02] MEDS ORDERED: IOVERSOL 320 100 ML VIAL IVP ONE ×2 (04:40→05:23)
[2018-12-02 05:42] LABS: BASOPHILS # (AUTO) 0.1 10^3/uL (0.0-0.1); BASOPHILS % (AUTO) 0.6 %; EOSINOPHILS # (AUTO) 0.1 10^3/uL (0.0-0.7); EOSINOPHILS % (AUTO) 0.6 %; HGB - HEMOGLOBIN 12.7 g/dL (14.0-18.0); LYMPHOCYTES # (AUTO) 2.5 10^3/uL (1.5-3.5); LYMPHOCYTES % (AUTO) 18.6 %; MEAN CORPUSCULAR HEMOGLOBIN 25.3 pg (27.0-31.0); MEAN CORPUSCULAR HGB CONC 30.2 g/dL (32.0-36.0); MEAN CORPUSCULAR VOLUME 83.7 fL (80.0-94.0); MEAN PLATELET VOLUME 10.3 fL (7.4-11.4); MONOCYTES % (AUTO) 7.5 %; NEUTROPHILS # (AUTO) 9.7 10^3/uL (1.5-6.6); NEUTROPHILS % (AUTO) 72.1 %; PLT - PLATELET COUNT 218 10^3/uL (130-450); RED BLOOD COUNT 5.02 10^6/uL (4.70-6.10); RED CELL DISTRIBUTION WIDTH 17.9 % (12.0-15.0); WHITE BLOOD COUNT 13.4 x10^3/uL (4.8-10.8)
[2018-12-02 05:51] LABS: CALCIUM 8.7 mg/dL (8.5-10.3); CREATININE 1.5 mg/dL (0.6-1.2)
[2018-12-02 06:06] LABS: CHOL/HDL RATIO 5.5 (<5.0); CHOLESTEROL 144 mg/dL; HDL CHOLESTEROL 26 mg/dL; LDL CHOLESTEROL,CALCULATED 102 mg/dL; LDL/HDL RATIO 3.9 (<3.6); VLDL CHOLESTEROL 16 mg/dL
--- NOTE | 2018-12-02 06:12 | CT Report ---
Reason: worsening right lower quadrant abdominal pain Procedure Date: 12/02/2018 Accession Number: [id number] / [id number] Procedure: CT - Abdomen/Pelvis W CPT Code: FULL RESULT: EXAM: CT ABDOMEN AND PELVIS EXAM DATE: 12/02/2018 05:19 AM. CLINICAL HISTORY: Worsening right lower quadrant abdominal pain. COMPARISONS: ABDOMEN/PELVIS W/O 12/01/2018 10:28 PM. TECHNIQUE: Routine helical CT imaging was performed through the abdomen and pelvis. IV contrast: OPTI 320 100ML. Enteric contrast: No. Reconstructions: Coronal and sagittal. In accordance with CT protocol optimization, one or more of the following dose reduction techniques were utilized for this exam: automated exposure control, adjustment of mA and/or KV based on patient size, or use of iterative reconstructive technique. FINDINGS: Lung Bases: Similar appearance of the right lower lobe multisegmental opacities and small right and trace left pleural effusions. Mild dilatation of the cardiac chambers. Liver: The liver is globally enlarged with the longitudinal dimension of the right lobe measuring 22.6 cm Gallbladder/Bile Ducts: Unremarkable. Spleen: Normal. Pancreas: Normal. Adrenal Glands: Normal. Kidneys: Normal. No masses or hydronephrosis. Peritoneal Cavity/Bowel: Similar degree in distribution of the small amount of ascites and edema in the retroperitoneum. The appendix is well visualized and normal. Pelvic Organs: Normal. The bladder and visualized pelvic organs are within normal limits. Vasculature: No aneurysms or other significant abnormality. Bones: No significant abnormality. Other: Anasarca. IMPRESSION: 1. Findings of generalized fluid overload with anasarca, bilateral pleural effusions, ascites, and retroperitoneal edema. 2. Cardiomegaly with biventricular enlargement. 3. Similar appearance of the right lower lung atelectasis versus consolidation. 4. The overall picture is non-specific but may be due to sepsis perhaps from right lung pneumonia or perhaps viral cardiomyopathy. 5. Hepatomegaly. 6. Normal appendix. RADIA The call report notification system was initiated by Dr. Irvin Sanchez at 06:04 AM on 12/02/2018. ADDENDUM: 12/02/18 06:15 The above call report findings were discussed with [facility] by Dr. Irvin Sanchez at 06:13 AM on 12/02/2018.
--- NOTE | 2018-12-02 06:38 | CONSULTATION NOTE ---
Referring Provider Name of Referring Provider:: Dr. Dean Consult Date: 12/02/18 Chief Complaint - Chief Complaint Chief Complaint: abd pain and dyspnea History of Present Illness - Admitted From Admitted From:: ER - History Obtained From Records Reviewed: yes History obtained from: pt Exam Limitations: none - History of Present Illness HPI Comment/Other: 38 yo male with 2 week hx of mild intermittent RLQ abdominal pain associated with dyspnea which became abruptly worse yesterday afternoon prompting evaluation in the ER and subsequent admission. No prior similar sx. No fever, chills, change in bowel habits, dysuria. C/o mild nausea but no vomiting. Has a cough productive of clear sputum. Has hx of pneumonia in June of this year treated with antibiotics with resolution. Has prior hx of CHF on basis of a CXR earlier this year which has not yet been further evaluated per pt. No melena, hematochezia, or wt loss. He reports significant wt gain over past two years. No one else in household with similar sx. Pain is exacerbated with activity, relieved with sitting up. Reports minimal use of alcohol, tobacco 1PPD, occasional marijuana, has hx of methamphetamine use but denies recent use. Evaluation in the ER included WBC 13K, nl lft's except bili 1.3, nl lipase, UA; CXR showing cardiomegaly, bilateral pleural effusions, right greater than left, and infiltrate in RLL c/w pneumonitis. No free air beneath the diaphragms. A noncontrast CT abd/pelvis: hepatosplenomegaly, retroperitoneal lymphadenopathy, peripancreatic edema, probable pancreatitis, retroperitoneal edema, a nl appearing appendix except for the presence of an appendicolith. He was admitted, treated with fluids, antibiotics, analgesics, and surgical consultation was requested. A repeat CT abd/pelvis with IV contrast confirmed the above findings except now there is no evidence of pancreatitis, the appendix, biliary try and small and large bowel appear nl, with no evidence of an intraabdominal surgical process. Serum amylase is nl. Recent triglycerides are nl. No biliary abnor malities were noted. History - Past Medical History Cardiovascular: reports: Hypertension Respiratory: reports: Pneumonia, Sleep apnea Neuro: reports: None Endocrine/Autoimmune: reports: Type 2 diabetes GI: reports: None : reports: None HEENT: reports: None Psych: reports: Depression, Anxiety Musculoskeletal: reports: None Derm: reports: None MRSA Hx?: Yes Other Past Medical History: Fistula. Hx non Hodgkins's lymphoma at age 18 diagnosed with minilaparotomy and treated with chemotherapy and thought to be RAFAEL. - Past Surgical History General: reports: Other (Laparoscopy and Biopsy of spleen) HEENT: reports: Tonsil/Adenoidectomy - Family & Social History Family History Comment/Other: He reports an extensive history of [place], CVA, HTN, unspecified cancer, depression, bipolar disorder in his grandfathers on both sides of the family Living arrangement: At home Living Situation: With family Social History Notes: He lives at home with his and daughter. He rarely drinks alcohol. He smokes about 1ppd and has been smoking for about 30 years. He uses marijuana and has a history of methamphetamine abuse. He last used regularly 2 years ago but he has used at least once since then. - Substance History Use: Uses substance without health or social issues: Tobacco, Alcohol, Cannabis Tobacco Details: Cigarettes - POLST Patient has POLST: No POLST Status: Full Code Meds/Allgy - Home Medications Home Medications: Ambulatory Orders Medication Instructions Recorded Confirmed Fluoxetine HCl 20 mg PO DAILY 05/12/17 05/12/17 Lisinopril 20 mg PO DAILY 05/12/17 05/12/17 Metoprolol Succinate 200 mg PO DAILY 05/12/17 05/12/17 Albuterol Sulf [Ventolin Hfa 1 - 2 puffs INH Q4HR PRN #1 inhaler 07/24/18 Inhaler] - Allergies Allergies/Adverse Reactions: Allergies Allergy/AdvReac Type Severity Reaction Status Date / Time No Known Drug Allergies Allergy Verified 12/01/18 20:29 Review of Systems - Constitutional Constitutional: reports: Weight gain. denies: Fatigue, Chills - Respiratory Respiratory: reports: Cough, Sputum production, SOB at rest, SOB with exertion - Gastrointestinal Gastrointestinal: reports: Abdominal pain, Nausea, Bloating. denies: Consti pation, Diarrhea, Change in bowel habits, Rectal bleeding, Black stools, Bloody stools, Vomiting, Bile emesis, Reflux/heartburn - Genitourinary Genitourinary: denies: Dysuria - Hematologic/Lymphatic Hematologic/Lymphatic: reports: Other (hx lymphoma) - All Other Systems All Other Systems: reports: Reviewed and negative (or covered in HPI/PMH) Exam - Vital Signs Reviewed Vital Signs: Yes Vital Signs: Vital Signs x48h Temp Pulse Pulse Resp BP BP Pulse Ox 12/02/18 04:22 25 H 166/125 H 95 12/02/18 04:00 36.3 C L 116 H 24 152/136 H 93 12/02/18 03:45 36.8 C 118 H 18 161/114 H 95 12/02/18 01:05 36.8 C 108 H 20 147/115 H 94 12/01/18 23:00 100 18 157/79 H 99 - Physical Exam General Appearance: positive: Severe distress, Anxious Eyes Bilateral: positive: Conjunctivae nml, No scleral icterus ENT: positive: Dry mucous membranes. negative: Pharyngeal erythema, Oral lesions Neck: positive: Nml inspection, Thyroid nml, No JVD, Trachea midline. negative: Lymphadenopathy (R), Lymphadenopathy (L) Respiratory: positive: Chest non-tender, No respiratory distress (with patient sitting upright and on supplemental oxygen by nasal cannula), Wheezes (faint inspiratory), Rales (faint bibasilar) Cardiovascular: positive: Regular rate & rhythm, No murmur, No gallop Peripheral Pulses: positive: 2+ Abdomen: positive: Tenderness (diffuse, with guarding and rebound throughout the abdomen), Guarding, Rebound, Abnml bowel sounds (hypoactive), Other (unable to appreciate organomegaly due to obesity and guarding) Skin: positive: Color nml, No rash, Warm, Diaphoresis Extremities: positive: Pedal edema. negative: Calf tenderness (2 + pretibial bilat) Neurologic/Psychiatric: positive: Oriented x3 Conclusion/Plan - Diagnosis Diagnosis: 1. Abdominal pain of unclear etiology; possibly due to hepatomegaly with capsular stretch, and/or RLL pneumonia. No evidence of intra abdominal surgical process on imaging studies to date. 2. CHF with severe LV dysfunction, biventricular failure, marked increased operative risk - Plan Plan: Further medical evaluation and treatment as appropriate. Consider transfer to facility with higher level of care. If surgery proves necessary, periop risk will be very high due to cardiac dysfunction.. Discussed with Dr. Dean in detail. - Lab Results Fish Bones: 12/02/18 05:35 12/02/18 05:35 Other Lab Results: amylase, lipase nl; lft's nl except bili 1.1; lactate nl. - Diagnostic Imaging Results Diagnostic Imaging Results: positive: Final report reviewed, Discussed with diologist, Read independently Diagnostic Imaging Results Comments: See HPI. echocardiogram this am reportedly shows LVEF 25%. - EKG Results EKG Interpreted Independently: No EKG Findings: sinus tach,
[2018-12-02] MEDS ORDERED: PANTOPRAZOLE 40 MG VIAL IVP SCH (07:00)
[2018-12-02] MEDS ORDERED: FUROSEMIDE 40 MG/4 ML VIAL IVP ONE (07:15)
[2018-12-02] MEDS ORDERED: metroNIDAZOLE 500 MG/100 ML 500 MG/100 ML BAG IV SCH (08:00)
[2018-12-02] MEDS ORDERED: polyethylene glycoL 3350 17 GM PACKET PO SCH (09:00)
[2018-12-02] MEDS ORDERED: NICOTINE 21 MG PATCH TOP SCH (09:00)
[2018-12-02 11:51] LABS: MUDS CUTOFF CONCENTRATIONS CUTOFF CONC BELOW:
[2018-12-02] MEDS ORDERED: lisinopriL 5 MG TABLET PO SCH (12:00)
[2018-12-02 12:04] LABS: CREATININE,URINE 87.3 mg/dL
[2018-12-02 12:07] LABS: AMPHETAMINE SCREEN,URINE NEGATIVE (NEGATIVE); BENZODIAZEPINES SCREEN, URINE NEGATIVE (NEGATIVE); COCAINE SCREEN URINE NEGATIVE (NEGATIVE); METHADONE SCREEN, URINE NEGATIVE (NEGATIVE); METHAMPHETAMINES SCREEN, URINE NEGATIVE (NEGATIVE); OPIATE SCREEN, URINE POSITIVE (NEGATIVE); OXYCODONE SCREEN, URINE NEGATIVE (NEGATIVE); PROPOXYPHENE SCREEN, URINE NEGATIVE (NEGATIVE); TRICYCLIC ANTIDEPRESSANT,URINE NEGATIVE (NEGATIVE)
[2018-12-02] MEDS ORDERED: FUROSEMIDE 40 MG/4 ML VIAL IVP SCH (14:00)
--- NOTE | 2018-12-02 14:37 | DISCHARGE SUMMARY ---
"Discharge Summary Admit Date: 12/01/18 Discharge Date: 12/02/18 Discharging Provider: Dr. Paul Hope Primary Care Provider: Dr. Kody Soto Code Status: Attempt Resuscitation Condition at Discharge: Stable Discharge Disposition: 02 Transfer Acute Care Hosp Discharge Facility Name: [facility] - DIAGNOSES Admission Diagnoses: Abdominal pain Pleural effusion NATASHA on CPAP Diabetes Mellitus Discharge Diagnoses with Status of Each Condition: Acute CHFrEF (EF 20-25%) - New diagnosis. Stable. Diuresing well with Lasix 60mg IV BID. Acute hypoxic respiratory failure - Improving. Now on 2L compared to 4L on admission Elevated Troponin - Improving. Abdominal pain - Nearly resolved. Hypertension - Stable. CKD - Stable. Diabetes Mellitus - Stable. Methamphetamine use - Stable. - HPI History of Present Illness: H&P per Dr. Dean on 12/01/18: Patient is a 38 y/o male who presented to the ED with complain of right lower quadrant abdominal pain. Onset was 2 weeks. Initially it was mild and intermittent but yesterday the pain became more intense. At its worst the pain is rated 8/10. It is worse with breathing. He denies chest pain but is dyspneic due to the abdominal pain. He denies nausea, vomiting or diarrhea. His last BM was a couple hours before presenting to the ED. On exam his abdomen is obese, however it seems more distended/ bloated. Bowel sounds are present. He has rebound tenderness and guarding. Rovsing's sign is positive. He also has pain just distal to his umbilicus. CT scan of the abdomen/pelvis done showed peripancreatic fluid and suggested pancreatitis. There was also an appendicolith noted. The was also small ascites, small right pleural effusion and superficial soft tissue swelling about the mid abdomen. As a result of the above he is being admitted for further treatment. - CONSULTS | PROCEDURES Consultations: General Surgery Procedures: TTE, CT Abdomen/Pelvis x2. - HOSPITAL COURSE Hospital Course: He was initially admitted for sever abdominal pain. CT of the abdomen/pelvis showed possible pancreatitis and appendicolith without appendicitis. There was also small amount of ascites and superficial soft tissue swelling around the mid abdomen. Lipase was normal initially and recheck a few hours later remained normal. The patient's pain then became more severe and a repeat CT was performed which was consistent with anasarca. The pancreas and appendix both appeared normal with this image. General Surgery was consulted and evaluated the patient and agreed that his abdominal exam was concerning but that there are no findings on the CT that would be surgical. Fortunately, the patient's pain improved with opiates and he is now no longer requiring pain medications. He was initially started on IV Ceftriaxone and Flagyl due to concern for abdominal infection but these have since been discontinued. He is now asking for a diet and has been started on a clear liquid diet. Due to the anasarca, an Echo was obtained which revealed an EF of 20-25% with mild concentric LVH. He had moderate to severe TR and RVSP was 73mmHg. He was hypoxic requiring 4L of oxygen which improved to 2L with IV diuresis. His x-ray was consistent with pulmonary vascular congestion. EKG was without ischemic changes. His troponins peaked in the mid 50's. Given his new heart failure with reduced EF and elevated troponin, the patient was discussed with Dr. Avery of Cardiology at [facility] who graciously accepted the patient for transfer. I then spoke with Dr. Stanley of the Hospitalist team for sign out. - ALLERGIES Allergies/Adverse Reactions: Allergies Allergy/AdvReac Type Severity Reaction Status Date / Time No Known Drug Allergies Allergy Verified 12/01/18 20:29 - MEDICATIONS Home Medications: Ambulatory Orders Medication Instructions Recorded Confirmed Lisinopril 10 mg PO DAILY 05/12/17 12/02/18 Tetrahydrocannibinol 12/02/18 hydroCHLOROthiazide 25 mg PO DAILY 12/02/18 12/02/18 [Hydrochlorothiazide] - PHYSICAL EXAM AT DISCHARGE General Appearance: positive: No acute distress, Alert Eyes Bilateral: positive: Normal inspection ENT: positive: ENT inspection nml, Other (Nasal cannula in place) Neck: positive: Nml inspection Respiratory: positive: Chest non-tender, No respiratory distress, Rales Cardiovascular: positive: Regular rate & rhythm, No murmur, Tachycardia. negative: Bradycardia, Systolic murmur, Diastolic murmur Abdomen: positive: Nml bowel sounds, Tenderness (Mild tenderness in right lower quadrant. Significantly improved since the morning.). negative: Non-tender, Guarding, Rebound Skin: positive: No rash, Warm, Dry Extremities: positive: Full ROM, Pedal edema (+2 pitting edema in his lower extremities) Neurologic/Psychiatric: positive: Oriented x3, Motor nml, Sensation nml. negative: Disoriented to person, Disoriented to place, Disoriented to time, Weakness - LABS Result Diagrams: 12/02/18 05:35 12/02/18 05:35 Other Lab Results: Laboratory Results WBC 13.4 x10^3/uL (4.8-10.8) H 12/02/18 05:35 RBC 5.02 10^6/uL (4.70-6.10) 12/02/18 05:35 Hgb 12.7 g/dL (14.0-18.0) L 12/02/18 05:35 Hct 42.0 % (42.0-52.0) 12/02/18 05:35 MCV 83.7 fL (80.0-94.0) 12/02/18 05:35 MCH 25.3 pg (27.0-31.0) L 12/02/18 05:35 MCHC 30.2 g/dL (32.0-36.0) L 12/02/18 05:35 RDW 17.9 % (12.0-15.0) H 12/02/18 05:35 Plt Count 218 10^3/uL (130-450) 12/02/18 05:35 MPV 10.3 fL (7.4-11.4) 12/02/18 05:35 Neut # (Auto) 9.7 10^3/uL (1.5-6.6) H 12/02/18 05:35 Lymph # (Auto) 2.5 10^3/uL (1.5-3.5) 12/02/18 05:35 [place] # (Auto) 1.0 10^3/uL (0.0-1.0) 12/02/18 05:35 Eos # (Auto) 0.1 10^3/uL (0.0-0.7) 12/02/18 05:35 Baso # (Auto) 0.1 10^3/uL (0.0-0.1) 12/02/18 05:35 Absolute Nucleated RBC 0.00 x10^3/uL 12/02/18 05:35 Nucleated RBC % 0.0 /100WBC 12/02/18 05:35 Sodium 144 mmol/L (135-145) 12/02/18 05:35 Potassium 3.6 mmol/L (3.5-5.0) 12/02/18 05:35 Chloride 107 mmol/L (101-111) 12/02/18 05:35 Carbon Dioxide 26 mmol/L (21-32) 12/02/18 05:35 Anion Gap 11.0 (6-13) 12/02/18 05:35 BUN 29 mg/dL (6-20) H 12/02/18 05:35 Creatinine 1.5 mg/dL (0.6-1.2) H 12/02/18 05:35 Estimated GFR (MDRD) 52 (>89) L 12/02/18 05:35 Glucose 132 mg/dL (70-100) H 12/02/18 05:35 POC Whole Bld Glucose 114 mg/dL (70 - 100) H 12/02/18 12:12 Lactic Acid 0.8 mmol/L (0.5-2.2) 12/02/18 05:35 Calcium 8.7 mg/dL (8.5-10.3) 12/02/18 05:35 Total Bilirubin 1.1 mg/dL (0.2-1.0) H 12/01/18 20:46 AST 25 IU/L (10-42) 12/01/18 20:46 ALT 21 IU/L (10-60) 12/01/18 20:46 Alkaline Phosphatase 78 IU/L (42-121) 12/01/18 20:46 Troponin I High Sens 46.9 pg/mL (2.3-19.7) H* 12/02/18 12:58 B-Natriuretic Peptide 822 pg/mL (5-100) H 12/02/18 05:20 Total Protein 7.6 g/dL (6.7-8.2) 12/01/18 20:46 Albumin 4.1 g/dL (3.2-5.5) 12/01/18 20:46 Globulin 3.5 g/dL (2.1-4.2) 12/01/18 20:46 Albumin/Globulin Ratio 1.2 (1.0-2.2) 12/01/18 20:46 Triglycerides 79 mg/dL (-149) 12/02/18 05:35 Cholesterol 144 mg/dL (-199) 12/02/18 05:35 LDL Cholesterol, Calc 102 mg/dL (-129) 12/02/18 05:35 VLDL Cholesterol 16 mg/dL 12/02/18 05:35 HDL Cholesterol 26 mg/dL (60-) L 12/02/18 05:35 LDL/HDL Ratio 3.9 (<3.6) 12/02/18 05:35 Cholesterol/HDL Ratio 5.5 (<5.0) 12/02/18 05:35 Amylase 33 U/L (28-100) 12/02/18 05:35 Lipase 25 U/L (22-51) 12/02/18 05:35 Urine Color YELLOW 12/01/18 21:20 Urine Clarity HAZY (CLEAR) 12/01/18 21:20 Urine pH 6.0 PH (5.0-7.5) 12/01/18 21:20 Ur Specific [place] >=1.030 (1.002-1.030) H 12/01/18 21:20 Urine Protein 100 mg/dL (NEGATIVE) H 12/01/18 21:20 Urine Glucose (UA) NEGATIVE mg/dL (NEGATIVE) 12/01/18 21:20 Urine Ketones NEGATIVE mg/dL (NEGATIVE) 12/01/18 21:20 Urine Occult Blood NEGATIVE (NEGATIVE) 12/01/18 21:20 Urine Nitrite NEGATIVE (NEGATIVE) 12/01/18 21:20 Urine Bilirubin NEGATIVE (NEGATIVE) 12/01/18 21:20 Urine Urobilinogen 0.2 (NORMAL) E.U./dL (NORMAL) 12/01/18 21:20 Ur Leukocyte Esterase NEGATIVE (NEGATIVE) 12/01/18 21:20 Urine RBC 0-5 /HPF (0-5) 12/01/18 21:20 Urine WBC 0-3 /HPF (0-3) 12/01/18 21:20 Ur Squamous Epith Cells FEW Squamous (<= Few) 12/01/18 21:20 Urine Bacteria None Seen /HPF (None Seen) 12/01/18 21:20 Urine Sperm PRESENT 12/01/18 21:20 Ur Microscopic Review INDICATED 12/01/18 21:20 Urine Culture Comments NOT INDICATED 12/01/18 21:20 U Random Total Protein 48 mg/dL 12/02/18 09:02 Urine Creatinine 87.3 mg/dL 12/02/18 09:02 Urine Opiates Screen POSITIVE (NEGATIVE) H 12/02/18 09:02 Ur Oxycodone Screen NEGATIVE (NEGATIVE) 12/02/18 09:02 Urine Methadone Screen NEGATIVE (NEGATIVE) 12/02/18 09:02 Ur Propoxyphene Screen NEGATIVE (NEGATIVE) 12/02/18 09:02 Ur Barbiturates Screen NEGATIVE (NEGATIVE) 12/02/18 09:02 Ur Tricyclics Screen NEGATIVE (NEGATIVE) 12/02/18 09:02 Ur Phencyclidine Scrn NEGATIVE (NEGATIVE) 12/02/18 09:02 Ur Amphetamine Screen NEGATIVE (NEGATIVE) 12/02/18 09:02 U Methamphetamines Scrn NEGATIVE (NEGATIVE) 12/02/18 09:02 U Benzodiazepines Scrn NEGATIVE (NEGATIVE) 12/02/18 09:02 Urine Cocaine Screen NEGATIVE (NEGATIVE) 12/02/18 09:02 U Cannabinoids Screen POSITIVE (NEGATIVE) H 12/02/18 09:02 Ethyl Alcohol < 5.0 mg/dL 12/01/18 23:50 - DIAGNOSTIC IMAGING Diagnostic Imaging Results: Final report reviewed - TIME SPENT Time Spent in Discharge (Minutes): 55"
[2018-12-02] MEDS ORDERED: ACETAMINOPHEN 500 MG TABLET PO STA (14:48)
[2018-12-02] MEDS ORDERED: ACETAMINOPHEN 325 MG TABLET PO STA (14:48)
[2018-12-02 17:03] VITALS: BP 174/123
[2018-12-03] MEDS ORDERED: cefTRIAXone 2 GM in SODIUM CHLORIDE 0.9% MINIBAG 100 ML IV SCH ×2
== END 2018-12-02 17:20 | disposition short-term general hospital (02) ==
LOC: ED 20:26 → MS2 23:26
PROVIDERS: ADMIT Internal Medicine; ATTEND Internal Medicine
DX: I13.0 Hypertensive heart and chronic kidney disease with heart failure and stage 1 through stage 4 chronic kidney disease, or unspecified chronic kidney disease (principal); I50.9 Heart failure, unspecified; N18.9 Chronic kidney disease, unspecified; E11.22 Type 2 diabetes mellitus with diabetic chronic kidney disease; J96.01 Acute respiratory failure with hypoxia; R10.31 Right lower quadrant pain; R60.1 Generalized edema; J90 Pleural effusion, not elsewhere classified; I07.1 Rheumatic tricuspid insufficiency; G47.33 Obstructive sleep apnea (adult) (pediatric); E66.01 Morbid (severe) obesity due to excess calories; Z68.39 Body mass index [BMI] 39.0-39.9, adult; Z87.01 Personal history of pneumonia (recurrent); F32.9 Major depressive disorder, single episode, unspecified; F41.9 Anxiety disorder, unspecified; F17.210 Nicotine dependence, cigarettes, uncomplicated
CPT/HCPCS: 36415; 71046; 74176; 74177; 80048; 80053; 80061; 80306; 80320; 81001; 82150; 82570; 83605; 83690; 83880; 84156; 84484; 85025; 87040; 93005; 93306; 96361; 96365; 96366; 96367; 96368; 96375; 96376; 99283; 99285; A9270; G0378; J1170; Q9967; 81003; 83721; 87086

== ENCOUNTER 2019-08-13 15:09 | Inpatient (IN) | payer MEDICAID ==
[2019-08-13] MEDS ORDERED: LORazepam 2 MG/ML VIAL IVP STA (15:44)
[2019-08-13] MEDS ORDERED: FUROSEMIDE 40 MG/4 ML VIAL IVP STA (15:44)
--- NOTE | 2019-08-13 15:53 | XRAY Report ---
PROCEDURE: Chest 1 View X-Ray INDICATIONS: Chest pain TECHNIQUE: One view of the chest was acquired. COMPARISON: Chest x-ray 12/02/2019 FINDINGS: Surgical changes and devices: None. Lungs and pleura: No pleural effusions or pneumothorax. Lungs are clear. Mediastinum: Mediastinal contours appear normal. Heart size is markedly enlarged. Bones and chest wall: No suspicious bony lesions. Overlying soft tissues appear unremarkable. IMPRESSION: Marked cardiomegaly. No acute pulmonary process. Reviewed by: Arin Reyez MD on 08/13/2019 3:52 PM PDT Approved by: Arin Reyez MD on 08/13/2019 3:52 PM PDT Station ID: [id number]
[2019-08-13 16:11] LABS: BASOPHILS # (AUTO) 0.1 10^3/uL (0.0-0.1); BASOPHILS % (AUTO) 0.6 %; EOSINOPHILS # (AUTO) 0.1 10^3/uL (0.0-0.7); EOSINOPHILS % (AUTO) 1.5 %; LYMPHOCYTES # (AUTO) 2.8 10^3/uL (1.5-3.5); LYMPHOCYTES % (AUTO) 29.8 %; MEAN CORPUSCULAR HGB CONC 32.3 g/dL (32.0-36.0); MEAN CORPUSCULAR VOLUME 86.5 fL (80.0-94.0); MEAN PLATELET VOLUME 10.9 fL (7.4-11.4); MONOCYTES # (AUTO) 0.5 10^3/uL (0.0-1.0); MONOCYTES % (AUTO) 5.7 %; NEUTROPHILS # (AUTO) 5.8 10^3/uL (1.5-6.6); NEUTROPHILS % (AUTO) 61.9 %; PLT - PLATELET COUNT 209 10^3/uL (130-450); RED BLOOD COUNT 4.29 10^6/uL (4.70-6.10); RED CELL DISTRIBUTION WIDTH 15.1 % (12.0-15.0); WHITE BLOOD COUNT 9.4 x10^3/uL (4.8-10.8)
--- NOTE | 2019-08-13 16:11 | ED Physician Documentation ---
History of Present Illness - Stated complaint Stated Complaint: ABD PX, BILAT FEET SWELLING - OUT OF HEART MEDS - Chief complaint Chief Complaint: Cardiac - History obtained from History obtained from: Patient - History of Present Illness Timing: Other (1 week) Pain level max: 8 Pain level now: 8 - Additonal information Additional information: 39-year-old male with a history of cardiomyopathy, unclear etiology. He states that he ran out of all of his medications approximately a month ago and has been unable to get a refill. He states he has had a 7 to 8 pound weight gain since that time. Increasing difficulty breathing as well. No chest pain. No nausea or vomiting. Swelling in the bilateral lower extremities. He was admitted here back in November for similar symptoms and subsequently transferred to [facility] in [place]. He underwent a left and right-sided heart catheterization at that time which did not show any abnormalities. Patient also has a history of pulmonary artery hypertension, as well as sleep apnea. He states he occasionally uses methamphetamines, last used 2 days ago. Review of Systems Ten Systems: 10 systems reviewed and negative Constitutional: denies: Fever, Chills Nose: denies: Rhinorrhea / runny nose, Congestion Throat: denies: Sore throat Cardiac: denies: Chest pain / pressure Respiratory: reports: Dyspnea. denies: Cough, Wheezing GI: denies: Abdominal Pain, Nausea, Vomiting, Diarrhea Skin: denies: Rash Musculoskeletal: denies: Neck pain, Back pain Neurologic: denies: Headache PD PAST MEDICAL HISTORY - Past Medical History Cardiovascular: Hypertension Respiratory: Pneumonia, Sleep apnea Neuro: None Endocrine/Autoimmune: Type 2 diabetes GI: None : None HEENT: None Psych: Depression, Anxiety Musculoskeletal: None Derm: None - Past Surgical History Past Surgical History: Yes General: Other (Laparoscopy and Biopsy of spleen) HEENT: Tonsil/Adenoidectomy - Present Medications Home Medications: Ambulatory Orders Medication Instructions Recorded Confirmed lisinopriL [Lisinopril] 10 mg PO DAILY 05/12/17 12/02/18 Tetrahydrocannibinol 12/02/18 hydroCHLOROthiazide 25 mg PO DAILY 12/02/18 12/02/18 [Hydrochlorothiazide] - Allergies Allergies/Adverse Reactions: Allergies Allergy/AdvReac Type Severity Reaction Status Date / Time No Known Drug Allergies Allergy Verified 12/01/18 20:29 - Social History Does the pt smoke?: Yes Smoking Status: Current every day smoker Does the pt drink ETOH?: No Does the pt have substance abuse?: No - Immunizations Immunizations are current?: Yes - POLST Patient has POLST: No POLST Status: Full Code PD ED PE NORMAL - Vitals Vital signs reviewed: Yes - General General: Alert and oriented X 3, No acute distress, Well developed/nourished - HEENT HEENT: Moist mucous membranes - Neck Neck: Supple, no meningeal sign - Cardiac Cardiac: RRR, Strong equal pulses - Respiratory Respiratory: No respiratory distress, Other (Crackles bilaterally) - Abdomen Abdomen: Soft, Non distended, Other (Tender to palpation right lower quadrant, no peritoneal signs) - Derm Derm: Warm and dry - Extremities Extremities: Other (2+ pitting edema bilateral lower extremities.) - Neuro Neuro: Alert and oriented X 3 - Psych Psych: Normal mood, Normal affect Results - Vitals Vitals: Vital Signs - 24 hr 08/13/19 08/13/19 08/13/19 15:13 16:06 16:30 Temperature 35.7 C L Heart Rate 102 H 108 H 108 H Respiratory 26 H 27 H 28 H Rate Blood Pressure 200/135 H 212/152 H 218/146 H O2 Saturation 98 93 94 08/13/19 17:00 Temperature Heart Rate 106 H Respiratory 29 H Rate Blood Pressure 199/139 H O2 Saturation 93 Oxygen O2 Source Room air - EKG (time done) 1521 Rate: Rate (enter#) (109) Rhythm: Sinus tachycardia [place]: Normal Intervals: Normal [place] QRS: LVH (with repol abnormality) Ischemia: ST depression (no sig change from 12/01/18) - Labs Labs: Laboratory Tests 08/13/19 08/13/19 08/13/19 15:52 15:52 15:52 WBC 9.4 RBC 4.29 L Hgb 12.0 L Hct 37.1 L MCV 86.5 MCH 28.0 MCHC 32.3 RDW 15.1 H Plt Count 209 MPV 10.9 Neut # (Auto) 5.8 Lymph # (Auto) 2.8 [place] # (Auto) 0.5 Eos # (Auto) 0.1 Baso # (Auto) 0.1 Absolute Nucleated RBC 0.00 Nucleated RBC % 0.0 Sodium 140 Potassium 3.3 L Chloride 106 Carbon Dioxide 24 Anion Gap 10.0 BUN 26 H Creatinine 1.5 H Estimated GFR (MDRD) 52 L Glucose 185 H Calcium 9.1 Total Bilirubin 1.3 H AST 25 ALT 38 Alkaline Phosphatase 70 Troponin I High Sens 100.6 H* B-Natriuretic Peptide Total Protein 6.7 Albumin 3.7 Globulin 3.0 Albumin/Globulin Ratio 1.2 Lipase 29 Urine Color Urine Clarity Urine pH Ur Specific [place] Urine Protein Urine Glucose (UA) Urine Ketones Urine Occult Blood Urine Nitrite Urine Bilirubin Urine Urobilinogen Ur Leukocyte Esterase Ur Microscopic Review Urine Culture Comments Urine Opiates Screen Ur Oxycodone Screen Urine Methadone Screen Ur Propoxyphene Screen Ur Barbiturates Screen Ur Tricyclics Screen Ur Phencyclidine Scrn Ur Amphetamine Screen U Methamphetamines Scrn U Benzodiazepines Scrn Urine Cocaine Screen U Cannabinoids Screen 08/13/19 08/13/19 15:52 16:16 WBC RBC Hgb Hct MCV MCH MCHC RDW Plt Count MPV Neut # (Auto) Lymph # (Auto) [place] # (Auto) Eos # (Auto) Baso # (Auto) Absolute Nucleated RBC Nucleated RBC % Sodium Potassium Chloride Carbon Dioxide Anion Gap BUN Creatinine Estimated GFR (MDRD) Glucose Calcium Total Bilirubin AST ALT Alkaline Phosphatase Troponin I High Sens B-Natriuretic Peptide 968 H Total Protein Albumin Globulin Albumin/Globulin Ratio Lipase Urine Color YELLOW Urine Clarity CLEAR Urine pH 6.0 Ur Specific [place] 1.020 Urine Protein TRACE Urine Glucose (UA) NEGATIVE Urine Ketones NEGATIVE Urine Occult Blood NEGATIVE Urine Nitrite NEGATIVE Urine Bilirubin NEGATIVE Urine Urobilinogen 0.2 (NORMAL) Ur Leukocyte Esterase NEGATIVE Ur Microscopic Review NOT INDICATED Urine Culture Comments NOT INDICATED Urine Opiates Screen NEGATIVE Ur Oxycodone Screen NEGATIVE Urine Methadone Screen NEGATIVE Ur Propoxyphene Screen NEGATIVE Ur Barbiturates Screen NEGATIVE Ur Tricyclics Screen NEGATIVE Ur Phencyclidine Scrn NEGATIVE Ur Amphetamine Screen POSITIVE H U Methamphetamines Scrn POSITIVE H U Benzodiazepines Scrn NEGATIVE Urine Cocaine Screen NEGATIVE U Cannabinoids Screen POSITIVE H - Rads (name of study) Chest x-ray Radiology: Prelim report reviewed, EMP read contemporaneously, See rad report (Marked cardiomegaly, no acute process) CT abdomen pelvis Radiology: Prelim report reviewed, EMP read contemporaneously, See rad report PD MEDICAL DECISION MAKING - ED course Complexity details: reviewed old records, reviewed results, re-evaluated patient, considered differential, d/w patient, d/w senior business consultant ED course: Patient with a CHF exacerbation. Given Lasix. Will need inpatient diuresis. Also very hypertensive. Mild troponin elevation likely secondary to CHF. Did review the records from [facility] in [place] and he did have a normal right and left heart catheterization in November 2018. Discussed the case with Dr. Sandoval, hospitalist who accepts This document was made in part using voice recognition software. While efforts are made to proofread this document, sound alike and grammatical errors may occur. CT of the abdomen pelvis was reviewed as well. Departure - Departure Disposition: 66 [facility] DC/Xfer Clinical Impression: NATASHA on CPAP CHF exacerbation Qualifiers: Heart failure type: unspecified Qualified Code(s): I50.9 - Heart failure, unspecified Hypertension Qualifiers: Hypertension type: unspecified Qualified Code(s): I10 - Essential (primary) hypertension Condition: Stable Discharge Date/Time: 08/13/19 17:57
[2019-08-13 16:20] LABS: MUDS CUTOFF CONCENTRATIONS CUTOFF CONC BELOW:
[2019-08-13 16:26] LABS: ALBUMIN 3.7 g/dL (3.2-5.5); ALBUMIN/GLOBULIN RATIO 1.2 (1.0-2.2); BILIRUBIN,TOTAL 1.3 mg/dL (0.2-1.0); CALCIUM 9.1 mg/dL (8.5-10.3); CREATININE 1.5 mg/dL (0.6-1.2); TOTAL PROTEIN 6.7 g/dL (6.7-8.2)
[2019-08-13 16:27] LABS: BILIRUBIN,URINE NEGATIVE (NEGATIVE); GLUCOSE, URINE (UA) NEGATIVE (NEGATIVE); KETONES,URINE (UA) NEGATIVE (NEGATIVE); LEUKOCYTE ESTERASE, URINE NEGATIVE (NEGATIVE); NITRITE,URINE NEGATIVE (NEGATIVE); OCCULT BLOOD,URINE NEGATIVE (NEGATIVE); PROTEIN,URINE TRACE mg/dL (NEGATIVE); UROBILINOGEN,URINE 0.2 (NORMAL) E.U./dL (NORMAL)
[2019-08-13 16:31] LABS: CLARITY,URINE CLEAR (CLEAR)
[2019-08-13] MEDS ORDERED: IOVERSOL 320 100 ML VIAL IVP ONE ×2 (16:35→17:01)
[2019-08-13 16:40] LABS: AMPHETAMINE SCREEN,URINE POSITIVE (NEGATIVE); BENZODIAZEPINES SCREEN, URINE NEGATIVE (NEGATIVE); COCAINE SCREEN URINE NEGATIVE (NEGATIVE); METHADONE SCREEN, URINE NEGATIVE (NEGATIVE); METHAMPHETAMINES SCREEN, URINE POSITIVE (NEGATIVE); OPIATE SCREEN, URINE NEGATIVE (NEGATIVE); OXYCODONE SCREEN, URINE NEGATIVE (NEGATIVE); PROPOXYPHENE SCREEN, URINE NEGATIVE (NEGATIVE); TRICYCLIC ANTIDEPRESSANT,URINE NEGATIVE (NEGATIVE)
[2019-08-13] MEDS ORDERED: SODIUM CHLORIDE FLUSH 0.9% 10 ML SYRINGE IVP PRN (17:07)
--- NOTE | 2019-08-13 17:20 | CT Report ---
PROCEDURE: Abdomen/Pelvis W INDICATIONS: RLQ abd pain CONTRAST: IV CONTRAST: Optiray 320 ml: 100 PO CONTRAST: *NO PO CONTRAST TECHNIQUE: After the administration of oral and intravenous contrast, 5 mm thick sections acquired from the diap hragms to the symphysis. 5 mm thick coronal and sagittal reformats were acquired. For radiation dos e reduction, the following was used: automated exposure control, adjustment of mA and/or kV accordin g to patient size. COMPARISON: None. FINDINGS: Image quality: Excellent. ABDOMEN: Lung bases: Lung bases are abnormal with a mild pulmonary edema pattern, and there are bilateral sma ll pleural effusions greater on the right than the left that appears simple in character and water in density.. Heart size is moderately enlarged, suspect CHF. Solid organs: Liver and spleen are normal in size and enhancement. Gallbladder wall appears thicken ed, but the gallbladder also appears contracted. Biliary system is non dilated. Pancreas enhances n ormally. No adrenal nodules. Kidneys demonstrate normal size and enhancement, without hydronephrosi s. Peritoneum and bowel: Bowel loops demonstrate normal wall thickness and caliber. No free fluid or a ir. Nodes and vessels: No retroperitoneal or mesenteric adenopathy by size criteria. Aorta and inferior vena cava are normal in size. Miscellaneous: No ventral hernias. PELVIS: Genitourinary: Bladder wall thickness is normal. Miscellaneous: No inguinal hernias or adenopathy. A small amount of free fluid is seen deep within the right posterior cul-de-sac region. No appendicitis is found, no diverticulitis is identified. Bones: No suspicious bony lesions. No vertebral body compression fractures. IMPRESSION: Suspect mild CHF in this patient given cardiomegaly and the presence of a mild pulmonary edema pattern at the lung bases, in addition to right greater than left simple small bilateral pleur al effusions. There is a small amount of free fluid deep within the right lower pelvis, with no CT evidence of acut e appendicitis or diverticulitis. Reviewed by: Ramesh Valentin MD on 08/13/2019 5:18 PM PDT Approved by: Ramesh Valentin MD on 08/13/2019 5:18 PM PDT Station ID: [id number]
[2019-08-13] MEDS ORDERED: POTASSIUM CHLORIDE 20 MEQ TABLET PO STA (17:33)
[2019-08-13] MEDS ORDERED: NITROGLYCERIN 50 MG/250 ML 50 MG/250 ML BOTTLE IV SCH (18:00)
[2019-08-13] MEDS ORDERED: carvediloL 12.5 MG TABLET PO SCH ×2 (18:00→21:00)
--- NOTE | 2019-08-13 18:38 | HISTORY & PHYSICAL EXAMINATION ---
DATE OF SERVICE: 08/13/2019 Physician: Mildred Sandoval MD HISTORY OF PRESENT ILLNESS: This is a 39-year-old white male with a history of nonischemic cardiomyopathy, which was diagnosed in 11/2018 when he presented here with abdominal pain and dyspnea, and was found to have an LVEF of 25% by Echo and was transferred to [facility] in [place] for cardiac evaluation. He underwent an angiogram that showed no obstructive coronary artery disease and they confirmed a dilated cardiomyopathy. Patient reported having upper respiratory infection or pneumonia 4 months previously, so possibly it is a viral cardiomyopathy. Patient had been on hydrochlorothiazide and lisinopril for blood pressure and those were stopped and he was put on carvedilol, Lasix, potassium, Entresto and spironolactone. Patient also has a history of diabetes, methamphetamine abuse, cigarette and alcohol use. Patient presents with worsening shortness of breath over the past 2-3 weeks and has noticed an 8 pound weight gain. He is also having dyspnea on exertion, orthopnea and leg edema. There has been no chest pain, palpitations, syncope, nausea or vomiting or abdominal symptoms. He does describe lower abdominal pain, which is somewhat like he had in 11/2018, which was improved then just by diuresis and felt to be from the anasarca then. In the ER here, he was found to have positive methamphetamine on toxicology screen, blood pressure of 218/146, tachycardic at 108 in sinus rhythm, respiratory rate of 29, room air saturation of 93%. He was given Lasix IV. He is being admitted to the ICU for malignant hypertension, CHF exacerbation from medication noncompliance. Patient stated that he ran out of his medicines about a month ago and has been "unable to get any of them", because there were "no more refills left". PAST MEDICAL HISTORY 1. Diabetes mellitus, diet controlled. 2. Hypertension. 3. CKD with creatinine baseline about 1.5. 4. Nonischemic cardiomyopathy. 5. Sleep apnea. 6. Depression and anxiety. 7. Prior laparoscopy and biopsy of the spleen for unknown reason. ALLERGIES: NONE. MEDICATIONS : These have not yet been confirmed, but from several months ago, he was to be taking 1. Carvedilol 6.25 bid 2. Furosemide. 3. Potassium. 4. Entresto. 5. Spironolactone. 6. Multivitamin. SOCIAL HISTORY: Patient has history of cigarette use. Currently, does not drink alcohol, does use methamphetamine and cannabis. FAMILY HISTORY: There was a positive family history of early heart disease. REVIEW OF SYSTEMS: A comprehensive review of systems was performed and the pertinent positives are listed above, the rest are negative. PHYSICAL EXAMINATION GENERAL: White male, who is in mild respiratory distress. VITAL SIGNS: Blood pressure is now 199/139, heart rate 106 in sinus rhythm. HEENT: Reveals moist oral mucosa. NECK: No JVD, no carotid bruits. CHEST: Diminished breath sounds at both bases. No wheezes or rales. HEART: Tachycardic. ABDOMEN: Obese with possible hepatomegaly. abdominal wall pitting edema is present to diaphragm. EXTREMITIES: Legs 4+ edema to hips NEUROLOGIC: Grossly intact. LABORATORY DATA: Sodium 140, potassium 3.3, BUN 26, creatinine 1.5, glucose 185. No A1c is available. Normal liver tests. Troponin is 100. BNP 968. Lipase normal. White blood count 9.4, hemoglobin 12 with MCV normal, platelet count 209. Urinalysis unremarkable. Urine tox screen showed positive methamphetamine, amphetamine, and cannabis. IMAGING: Chest x-ray: No active disease, but a CT of the abdomen was done that showed the lower chest, which has bilateral pleural effusions and cardiomegaly and the abdominal imaging was unremarkable. IMPRESSION/DIAGNOSES 1. Malignant hypertension. 2. Congestive heart failure exacerbation/ anasarca, due to medication non- compliance. 3. Acute on chronic systolic heart failure. 4. Chronic kidney disease stage III 5. Diabetes mellitus, diet controlled 6. Methamphetamine abuse. 7. Noncompliance with medications. 8. Tobacco use. 9. Anemia. PLAN: Admit patient to the ICU on telemetry inpatient status. Begin IV nitroglycerin for preload reduction for both CHF management and blood pressure control. Restart him on his medications, currently, the doses will be estimated in order to resume carvedilol, MILTON inhibitor. Start IV b.i.d. Lasix. Follow I's and O's and daily weights. Follow his BMP and BNP daily. Check A1c, order diabetic diet, begin insulin sliding scale coverage. Confirmed that there are no oral diabetic medications to be resumed. Follow his CBC daily regarding his hemoglobin, which may be hemodilutional. He will need education regarding CHF, noncompliance, diet control, meth use. DEEP VENOUS THROMBOSIS PROPHYLAXIS: SCDS. CODE STATUS: FULL CODE. ATTESTATION: Patient is expected to be discharged or transferred to another facility within 96 hours: Yes. TD: 08/13/2019 18:02 [email or web address]
[2019-08-13] MEDS ORDERED: SODIUM CHLORIDE 0.9% 500 ML IV ONE (18:40)
[2019-08-13] MEDS ORDERED: SODIUM CHLORIDE 0.9% 500 ML IV PRN (18:49)
[2019-08-13] MEDS ORDERED: LOSARTAN 50 MG TABLET PO SCH (21:00)
[2019-08-13] MEDS: FAMOTIDINE 20 MG TABLET PO SCH (21:07)
[2019-08-13] MEDS: INSULIN ASPART 300 UNIT/3 ML PEN SUBQ SCH (21:09)
[2019-08-13] MEDS: SODIUM CHLORIDE FLUSH 0.9% 10 ML SYRINGE IVP SCH (21:10)
[2019-08-13] MEDS: MORPHINE 10 MG/ML VIAL IVP PRN (21:15)
[2019-08-13] MEDS ORDERED: LORazepam 2 MG/ML VIAL IVP PRN (23:16)
[2019-08-14] MEDS: NICOTINE 14 MG PATCH TOP SCH ×2 (00:06→08:26)
[2019-08-14] MEDS: ACETAMINOPHEN 325 MG TABLET PO PRN (01:04)
[2019-08-14] MEDS: MORPHINE 10 MG/ML VIAL IVP PRN (04:17)
[2019-08-14 04:57] LABS: BASOPHILS # (AUTO) 0.1 10^3/uL (0.0-0.1); BASOPHILS % (AUTO) 0.6 %; EOSINOPHILS # (AUTO) 0.3 10^3/uL (0.0-0.7); EOSINOPHILS % (AUTO) 2.2 %; HGB - HEMOGLOBIN 11.6 g/dL (14.0-18.0); LYMPHOCYTES # (AUTO) 2.4 10^3/uL (1.5-3.5); LYMPHOCYTES % (AUTO) 20.5 %; MEAN CORPUSCULAR HEMOGLOBIN 27.9 pg (27.0-31.0); MEAN CORPUSCULAR VOLUME 87.3 fL (80.0-94.0); MEAN PLATELET VOLUME 10.3 fL (7.4-11.4); MONOCYTES # (AUTO) 0.7 10^3/uL (0.0-1.0); MONOCYTES % (AUTO) 6.3 %; NEUTROPHILS # (AUTO) 8.2 10^3/uL (1.5-6.6); NEUTROPHILS % (AUTO) 69.9 %; PLT - PLATELET COUNT 208 10^3/uL (130-450); RED BLOOD COUNT 4.16 10^6/uL (4.70-6.10); RED CELL DISTRIBUTION WIDTH 15.1 % (12.0-15.0); WHITE BLOOD COUNT 11.7 x10^3/uL (4.8-10.8)
[2019-08-14 05:11] LABS: CALCIUM 8.6 mg/dL (8.5-10.3); CREATININE 1.4 mg/dL (0.6-1.2); MAGNESIUM 2.1 mg/dL (1.7-2.8); PHOSPHORUS 5.7 mg/dL (2.5-4.6)
[2019-08-14 05:14] LABS: HB2 TOTAL 12.6 g/dL; HEMOGLOBIN A1C 0.6 g/dL; HEMOGLOBIN A1C % 6.5 % (4.6-6.2)
[2019-08-14] MEDS: FUROSEMIDE 40 MG/4 ML VIAL IVP SCH ×2 (06:21→14:09)
[2019-08-14] MEDS ORDERED: POTASSIUM CHLORIDE 20 MEQ TABLET PO ONE (07:16)
[2019-08-14] MEDS: INSULIN ASPART 300 UNIT/3 ML PEN SUBQ SCH ×4 (07:59→21:08)
[2019-08-14] MEDS ORDERED: METOPROLOL 5 MG/5 ML VIAL IVP STA (08:24)
[2019-08-14] MEDS: PRENATAL VITAMIN TABLET PO SCH (08:26)
[2019-08-14] MEDS: SPIRONOLACTONE 25 MG TABLET PO SCH (08:26)
--- NOTE | 2019-08-14 08:28 | PROVIDER PROGRESS NOTE ---
Assessment/Plan - Problem List (1) Hypertensive urgency Assessment/Plan: The IV nitroglycerin was ordered to be started when the blood pressure was nearly 220 systolic yesterday. This morning iv NTG drip was scheduled to be stopped at 0600. His systolic blood pressure came down to 170 on iv NTG plus his usual po meds, but BP trending upward after the nitroglycerin drip was stopped. Will continue plan for resuming his usual p.o. meds, and give additional IV Lopressor x1 for tachycardia and this HTN. If BP remains this elevated, remain in the ICU today for further urgent management. (2) Anasarca Assessment/Plan: Patient reported about an 8 pound weight gain. He has pitting edema up to his hips and bilateral pleural effusions. He probably has about 10 pounds of water Continue IV twice daily Lasix. Follow I's and O's and daily weights.. (3) Acute on chronic systolic heart failure, NYHA class 3 Assessment/Plan: The LVEF was 25% by work-up done 8 months ago, And he had normal coronary arteries on angiography. 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 Reason for exacerbation is that he stopped his cardiac medications 1 month ago when the pills ran out. Continue IV twice daily diuretics and resumption of his cardiomyopathy meds. Follow I's and O's, daily weights and BN P for several days. 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 (4) Tachycardia Assessment/Plan: This is possibly multifactorial, from poor cardiac output, being off his beta- blockers, meth withdrawal. We will give Lopressor IV x1 and increase the dose of Carvedilol. (5) Methamphetamine abuse Assessment/Plan: He had positive methamphetamine and amphetamine on urine tox screen. He is going through withdrawal with the tachycardia, agitation and diaphoresis last night and now hypersomnolence. Low-dose of PRN Ativan has been ordered for agitation. Otherwise, will wait out the sleepiness. neuro checks are ordered q shift. Will remain in ICU today. (6) CKD (chronic kidney disease) stage 3, GFR 30-59 ml/min Assessment/Plan: The creatinine has improved to 1.4, suggesting he had cardiorenal syndrome with high venous pressure. Continue with IV diuresis and resumption of his cardiomyopathy meds. Follow BMP daily. Avoid nephrotoxins (7) Diet-controlled diabetes mellitus Assessment/Plan: His A1c returned at 6.5 indicating good control. Continue with carb controlled diet, SS insulin coverage. - Current Meds Current Meds: Current Medications Generic Name Dose Route Start Last Admin Trade Name Freq PRN Reason Stop Dose Admin Acetaminophen 650 mg 08/13/19 17:07 08/14/19 01:04 Tylenol PO 650 mg Q4HR PRN Administration Pain 1 to 4 Famotidine 20 mg 08/13/19 21:00 08/13/19 21:07 Pepcid PO 20 mg BID TYSON Administration Furosemide 60 mg 08/14/19 06:00 08/14/19 06:21 Lasix Inj 40 Mg Vial IVP 60 mg BIDDIURETIC TYSON Administration Sodium Chloride 500 mls @ 0 mls/hr 08/13/19 18:49 08/14/19 05:00 Normal Saline 0.9% IV 30 mls/hr Q24H PRN Infusion TKO RATE TKO Insulin Aspart 1 - 5 unit 08/13/19 21:00 08/14/19 07:59 Novolog SUBQ 1 unit 0800,1200,1700,2100 TYSON Administration Protocol Lorazepam 0.5 mg 08/13/19 23:16 08/14/19 01:03 Ativan Inj (Vial) IVP 0.5 mg Q6H PRN Administration Restlessness Nicotine 1 patch 08/13/19 23:15 08/14/19 00:06 Nicoderm TOP 1 patch DAILY TYSON Administration Sodium Chloride 10 ml 08/14/19 01:00 08/13/19 21:10 Normal Saline Flush 0.9% IVP 10 ml 0100,0900,1700 TYSON Administration - Lab Result Fish Bone Diagrams: 08/14/19 04:40 08/14/19 04:40 - Additional Planning My Orders: My Active Orders 08/13/19 Dinner Low Sodium Diet [DIET] 08/13/19 17:07 Activity Orders [RC] Q2HR Daily Weight [RC] 0600 Home CPAP/BiPAP/NPPV [RC] .ONCE IO [RC] Q1HR Initiate Bowel Care Protocol [RC] QSHIFT Initiate ICU Electrolyte Prot. [RC] .protocol Initiate Line Care Protocol [RC] .protocol Initiate Personal Care Protoco [RC] .protocol Turn and Reposition [RC] PRN Vital Signs [RC] Q1HR Acetaminophen [Tylenol] 650 mg PO Q4HR PRN Sodium Chloride Flush 0.9% [Normal Saline Flush 0.9%] 10 ml IVP PRN PRN Code Status [OTHERS] Routine Condition of Patient [OTHERS] Routine DVT Prophylaxis [OTHERS] Routine 08/13/19 17:10 Telemetry- [] Q4HR 08/13/19 17:11 Oral Care - Nursing [RC] Routine Oxygen Therapy [RC] Routine [facility] [] [facility]/13[facility] 17:13 Initiate Line Care Protocol [] [facility] 08/13/19 17:31 Neuro Check [] [facility] 08/13/19 18:49 Sodium Chloride 0.9% [Normal Saline 0.9%] 500 ml IV Q24H 08/13/19 19:12 Blood Glucose Checks - Eating [] 0800,1200,1700,2100 Initiate Hypoglycemia Protocol [RC] .protocol 08/13/19 21:00 Famotidine [Pepcid] 20 mg PO BID Insulin Aspart [NovoLOG] 1 - 5 unit SUBQ 0800,1200,1700,2100 08/14/19 01:00 Sodium Chloride Flush 0.9% [Normal Saline Flush 0.9%] 10 ml IVP 0100,0900,1700 08/14/19 06:00 FUROSEMIDE INJ 40mg VIAL [LASIX INJ 40 mg VIAL] 60 mg IVP BIDDIURETIC 08/14/19 06:54 Morphine Inj (Carpuject) [Morphine (Carpuject)] 2 mg IVP Q6H PRN 08/14/19 08:00 Vitamin [Trinatal Rx 1] 1 tab PO DAILYWM 08/14/19 08:24 Metoprolol Inj [Lopressor Inj] 5 mg IVP ONCE STA 08/14/19 09:00 Losartan [Cozaar] 50 mg PO BID Spironolactone [Aldactone] 25 mg PO DAILY carvediloL [Coreg] 9.375 mg PO BID 08/15/19 05:00 BNP - B-NATRIURETIC PEPTIDE [IAI] DAILYLAB Subjective - Subjective Patient Reports: Feeling Better Nursing Reports: Other (It was reported that he was agitated and diaphoretic overnight, possibly withdrawing from Meth, received ativan iv) Objective Vital Signs: Vital Signs - 24 hr 08/13/19 08/13/19 08/13/19 15:13 16:06 16:30 Temperature 35.7 C L Heart Rate 102 H 108 H 108 H Heart Rate [ Monitoring electrodes] Respiratory 26 H 27 H 28 H Rate Blood Pressure 200/135 H 212/152 H 218/146 H Blood Pressure [Right Brachial artery] O2 Saturation 98 93 94 08/13/19 08/13/19 08/13/19 17:00 18:03 18:15 Temperature Heart Rate 106 H Heart Rate [ 105 H Monitoring electrodes] Respiratory 29 H 19 25 H Rate Blood Pressure 199/139 H Blood Pressure 199/148 H [Right Brachial artery] O2 Saturation 93 96 80 L 08/13/19 08/13/19 08/13/19 18:35 18:45 18:50 Temperature Heart Rate Heart Rate [ 103 H 105 H 104 H Monitoring electrodes] Respiratory 23 Rate Blood Pressure Blood Pressure 193/146 H 190/142 H 190/142 H [Right Brachial artery] O2 Saturation 96 08/13/19 08/13/19 08/13/19 19:00 19:08 19:09 Temperature 36.6 C Heart Rate 104 H 106 H Heart Rate [ 105 H Monitoring electrodes] Respiratory 15 22 22 Rate Blood Pressure 191/143 H Blood Pressure 189/151 H [Right Brachial artery] O2 Saturation 96 08/13/19 08/13/19 08/13/19 19:10 19:14 19:15 Temperature Heart Rate 106 H 106 H Heart Rate [ 105 H Monitoring electrodes] Respiratory 22 23 Rate Blood Pressure Blood Pressure 191/143 H 189/151 H [Right Brachial artery] O2 Saturation 08/13/19 08/13/19 08/13/19 19:16 19:20 19:25 Temperature Heart Rate 105 H 105 H 104 H Heart Rate [ Monitoring electrodes] Respiratory 21 21 23 Rate Blood Pressure 189/151 H Blood Pressure [Right Brachial artery] O2 Saturation 08/13/19 08/13/19 08/13/19 19:30 19:31 19:35 Temperature Heart Rate 103 H 102 H 101 H Heart Rate [ Monitoring electrodes] Respiratory 22 24 25 H Rate Blood Pressure 190/141 H Blood Pressure 178/138 H [Right Brachial artery] O2 Saturation 08/13/19 08/13/19 08/13/19 19:36 19:40 19:41 Temperature Heart Rate 102 H 103 H 103 H Heart Rate [ Monitoring electrodes] Respiratory 24 31 H 23 Rate Blood Pressure 178/138 H Blood Pressure [Right Brachial artery] O2 Saturation 08/13/19 08/13/19 08/13/19 19:42 19:44 19:45 Temperature Heart Rate 101 H 101 H 100 Heart Rate [ Monitoring electrodes] Respiratory 25 H 27 H 22 Rate Blood Pressure 189/139 H 187/134 H Blood Pressure [Right Brachial artery] O2 Saturation 08/13/19 08/13/19 08/13/19 19:46 19:50 19:51 Temperature Heart Rate 101 H 101 H 98 Heart Rate [ Monitoring electrodes] Respiratory 24 22 25 H Rate Blood Pressure 191/149 H Blood Pressure [Right Brachial artery] O2 Saturation 08/13/19 08/13/19 08/13/19 19:54 19:55 19:56 Temperature Heart Rate 100 97 97 Heart Rate [ Monitoring electrodes] Respiratory 22 22 22 Rate Blood Pressure 191/138 H Blood Pressure [Right Brachial artery] O2 Saturation 08/13/19 08/13/19 08/13/19 19:59 20:00 20:01 Temperature Heart Rate 98 97 97 Heart Rate [ Monitoring electrodes] Respiratory 22 22 22 Rate Blood Pressure 199/139 H Blood Pressure [Right Brachial artery] O2 Saturation 08/13/19 08/13/19 08/13/19 20:04 20:05 20:06 Temperature Heart Rate 97 97 98 Heart Rate [ 97 Monitoring electrodes] Respiratory 22 22 23 Rate Blood Pressure 202/141 H Blood Pressure 202/141 H [Right Brachial artery] O2 Saturation 93 08/13/19 08/13/19 08/13/19 20:09 20:10 20:11 Temperature Heart Rate 96 97 97 Heart Rate [ Monitoring electrodes] Respiratory 22 23 23 Rate Blood Pressure 201/145 H Blood Pressure [Right Brachial artery] O2 Saturation 08/13/19 08/13/19 08/13/19 20:15 20:20 20:21 Temperature Heart Rate 97 99 97 Heart Rate [ Monitoring electrodes] Respiratory 21 22 18 Rate Blood Pressure 204/138 H Blood Pressure [Right Brachial artery] O2 Saturation 08/13/19 08/13/19 08/13/19 20:25 20:30 20:31 Temperature Heart Rate 97 97 96 Heart Rate [ Monitoring electrodes] Respiratory 22 23 23 Rate Blood Pressure 212/136 H Blood Pressure [Right Brachial artery] O2 Saturation 08/13/19 08/13/19 08/13/19 20:35 20:40 20:41 Temperature Heart Rate 101 H 96 96 Heart Rate [ Monitoring electrodes] Respiratory 25 H 19 21 Rate Blood Pressure 212/149 H Blood Pressure [Right Brachial artery] O2 Saturation 08/13/19 08/13/19 08/13/19 20:45 20:50 20:51 Temperature Heart Rate 96 96 96 Heart Rate [ Monitoring electrodes] Respiratory 20 23 23 Rate Blood Pressure 209/140 H Blood Pressure [Right Brachial artery] O2 Saturation 08/13/19 08/13/19 08/13/19 20:55 21:00 21:05 Temperature Heart Rate 97 97 93 Heart Rate [ Monitoring electrodes] Respiratory 19 16 21 Rate Blood Pressure Blood Pressure [Right Brachial artery] O2 Saturation 08/13/19 08/13/19 08/13/19 21:10 21:14 21:15 Temperature Heart Rate 96 97 93 Heart Rate [ 95 Monitoring electrodes] Respiratory 23 19 22 Rate Blood Pressure 214/140 H Blood Pressure 214/140 H [Right Brachial artery] O2 Saturation 95 08/13/19 08/13/19 08/13/19 21:16 21:20 22:00 Temperature 37.0 C Heart Rate 97 94 Heart Rate [ 88 95 Monitoring electrodes] Respiratory 19 18 Rate Blood Pressure Blood Pressure 197/150 H 226/154 H [Right Brachial artery] O2 Saturation 93 08/13/19 08/13/19 08/13/19 22:01 22:05 22:10 Temperature Heart Rate 101 H 86 87 Heart Rate [ Monitoring electrodes] Respiratory 25 H 17 18 Rate Blood Pressure 226/154 H Blood Pressure [Right Brachial artery] O2 Saturation 08/13/19 08/13/19 08/13/19 22:15 22:16 22:20 Temperature Heart Rate 89 97 90 Heart Rate [ 99 Monitoring electrodes] Respiratory 20 26 H 19 Rate Blood Pressure 182/91 H Blood Pressure 182/91 H [Right Brachial artery] O2 Saturation 08/13/19 08/13/19 08/13/19 22:25 22:30 22:31 Temperature Heart Rate 101 H 92 96 Heart Rate [ Monitoring electrodes] Respiratory 27 H 20 20 Rate Blood Pressure 200/110 H Blood Pressure [Right Brachial artery] O2 Saturation 08/13/19 08/13/19 08/13/19 22:35 22:40 22:41 Temperature Heart Rate 88 75 101 H Heart Rate [ Monitoring electrodes] Respiratory 17 13 24 Rate Blood Pressure Blood Pressure [Right Brachial artery] O2 Saturation 08/13/19 08/13/19 08/13/19 22:42 22:45 22:46 Temperature Heart Rate 94 94 Heart Rate [ 83 Monitoring electrodes] Respiratory 18 17 15 Rate Blood Pressure 176/123 H Blood Pressure 176/123 H [Right Brachial artery] O2 Saturation 95 08/13/19 08/13/19 08/13/19 22:50 22:52 22:53 Temperature Heart Rate 85 98 91 Heart Rate [ Monitoring electrodes] Respiratory 17 16 13 Rate Blood Pressure 172/102 H Blood Pressure [Right Brachial artery] O2 Saturation 08/13/19 08/13/19 08/13/19 22:55 22:56 23:00 Temperature Heart Rate 94 89 Heart Rate [ 99 88 Monitoring electrodes] Respiratory 22 16 Rate Blood Pressure Blood Pressure 172/102 H 172/111 H [Right Brachial artery] O2 Saturation 94 08/13/19 08/13/19 08/13/19 23:01 23:05 23:10 Temperature Heart Rate 93 89 90 Heart Rate [ Monitoring electrodes] Respiratory 16 13 16 Rate Blood Pressure 172/111 H Blood Pressure [Right Brachial artery] O2 Saturation 08/13/19 08/13/19 08/13/19 23:15 23:20 23:25 Temperature Heart Rate 92 100 99 Heart Rate [ Monitoring electrodes] Respiratory 16 19 14 Rate Blood Pressure Blood Pressure [Right Brachial artery] O2 Saturation 08/13/19 08/13/19 08/13/19 23:30 23:31 23:35 Temperature Heart Rate 93 95 92 Heart Rate [ Monitoring electrodes] Respiratory 14 19 16 Rate Blood Pressure 174/127 H Blood Pressure [Right Brachial artery] O2 Saturation 08/13/19 08/13/19 08/13/19 23:40 23:45 23:50 Temperature Heart Rate 94 95 94 Heart Rate [ Monitoring electrodes] Respiratory 16 17 16 Rate Blood Pressure Blood Pressure [Right Brachial artery] O2 Saturation 08/13/19 08/14/19 08/14/19 23:55 00:00 00:01 Temperature Heart Rate 93 93 92 Heart Rate [ 94 Monitoring electrodes] Respiratory 19 24 20 Rate Blood Pressure 184/112 H Blood Pressure 184/112 H [Right Brachial artery] O2 Saturation 94 08/14/19 08/14/19 08/14/19 00:05 00:10 00:15 Temperature Heart Rate 95 94 93 Heart Rate [ Monitoring electrodes] Respiratory 27 H 16 17 Rate Blood Pressure Blood Pressure [Right Brachial artery] O2 Saturation 08/14/19 08/14/19 08/14/19 00:20 00:25 00:30 Temperature Heart Rate 93 95 93 Heart Rate [ Monitoring electrodes] Respiratory 23 17 21 Rate Blood Pressure Blood Pressure [Right Brachial artery] O2 Saturation 08/14/19 08/14/19 08/14/19 00:31 00:35 00:36 Temperature Heart Rate 96 98 78 Heart Rate [ Monitoring electrodes] Respiratory 16 18 13 Rate Blood Pressure 186/134 H 168/135 H Blood Pressure [Right Brachial artery] O2 Saturation 08/14/19 08/14/19 08/14/19 00:49 00:50 00:55 Temperature Heart Rate 94 93 96 Heart Rate [ Monitoring electrodes] Respiratory 13 10 L 17 Rate Blood Pressure Blood Pressure [Right Brachial artery] O2 Saturation 08/14/19 08/14/19 08/14/19 01:00 01:01 01:05 Temperature Heart Rate 73 95 95 Heart Rate [ 93 Monitoring electrodes] Respiratory 15 14 18 Rate Blood Pressure 163/98 H Blood Pressure 163/98 H [Right Brachial artery] O2 Saturation 96 08/14/19 08/14/19 08/14/19 01:15 01:30 02:00 Temperature Heart Rate Heart Rate [ 95 97 Monitoring electrodes] Respiratory 20 Rate Blood Pressure Blood Pressure 163/109 H 167/112 H 174/112 H [Right Brachial artery] O2 Saturation 95 08/14/19 08/14/19 08/14/19 02:10 02:15 02:20 Temperature Heart Rate 100 96 97 Heart Rate [ Monitoring electrodes] Respiratory 22 33 H 25 H Rate Blood Pressure Blood Pressure [Right Brachial artery] O2 Saturation 08/14/19 08/14/19 08/14/19 02:25 02:30 02:31 Temperature Heart Rate 94 96 95 Heart Rate [ Monitoring electrodes] Respiratory 16 18 18 Rate Blood Pressure 163/118 H Blood Pressure [Right Brachial artery] O2 Saturation 08/14/19 08/14/19 08/14/19 02:35 02:40 02:45 Temperature Heart Rate 97 101 H 96 Heart Rate [ Monitoring electrodes] Respiratory 19 23 18 Rate Blood Pressure Blood Pressure [Right Brachial artery] O2 Saturation 08/14/19 08/14/19 08/14/19 02:50 02:55 03:00 Temperature Heart Rate 98 93 99 Heart Rate [ 97 Monitoring electrodes] Respiratory 19 19 21 Rate Blood Pressure Blood Pressure 170/117 H [Right Brachial artery] O2 Saturation 96 08/14/19 08/14/19 08/14/19 03:01 03:05 03:10 Temperature Heart Rate 96 98 97 Heart Rate [ Monitoring electrodes] Respiratory 16 41 H 21 Rate Blood Pressure 170/117 H Blood Pressure [Right Brachial artery] O2 Saturation 08/14/19 08/14/19 08/14/19 03:15 03:20 03:25 Temperature Heart Rate 99 98 96 Heart Rate [ Monitoring electrodes] Respiratory 19 22 18 Rate Blood Pressure Blood Pressure [Right Brachial artery] O2 Saturation 08/14/19 08/14/19 08/14/19 03:30 03:31 03:34 Temperature Heart Rate 98 101 H Heart Rate [ 100 Monitoring electrodes] Respiratory 22 20 Rate Blood Pressure 153/103 H Blood Pressure 153/103 H [Right Brachial artery] O2 Saturation 08/14/19 08/14/19 08/14/19 03:35 03:40 03:45 Temperature Heart Rate 97 92 92 Heart Rate [ Monitoring electrodes] Respiratory 21 19 18 Rate Blood Pressure Blood Pressure [Right Brachial artery] O2 Saturation 08/14/19 08/14/19 08/14/19 03:50 03:55 04:00 Temperature Heart Rate 96 94 95 Heart Rate [ 95 Monitoring electrodes] Respiratory 25 H 21 31 H Rate Blood Pressure Blood Pressure 164/108 H [Right Brachial artery] O2 Saturation 96 08/14/19 08/14/19 08/14/19 04:01 04:05 04:06 Temperature Heart Rate 94 98 97 Heart Rate [ Monitoring electrodes] Respiratory 30 H 21 23 Rate Blood Pressure 164/108 H 171/106 H Blood Pressure [Right Brachial artery] O2 Saturation 08/14/19 08/14/19 08/14/19 04:11 04:12 04:15 Temperature Heart Rate 87 95 95 Heart Rate [ Monitoring electrodes] Respiratory 14 18 18 Rate Blood Pressure 171/111 H Blood Pressure [Right Brachial artery] O2 Saturation 08/14/19 08/14/19 08/14/19 04:16 04:17 04:19 Temperature Heart Rate 96 95 Heart Rate [ 93 Monitoring electrodes] Respiratory 18 16 16 Rate Blood Pressure 161/109 H Blood Pressure 161/109 H [Right Brachial artery] O2 Saturation 96 08/14/19 08/14/19 08/14/19 04:20 04:21 04:22 Temperature Heart Rate 96 94 95 Heart Rate [ Monitoring electrodes] Respiratory 18 16 17 Rate Blood Pressure 161/109 H Blood Pressure [Right Brachial artery] O2 Saturation 08/14/19 08/14/19 08/14/19 04:25 04:26 04:27 Temperature Heart Rate 93 95 95 Heart Rate [ 94 Monitoring electrodes] Respiratory 15 17 18 Rate Blood Pressure 155/106 H Blood Pressure 161/109 H [Right Brachial artery] O2 Saturation 08/14/19 08/14/19 08/14/19 04:30 04:31 04:32 Temperature Heart Rate 95 94 95 Heart Rate [ Monitoring electrodes] Respiratory 18 16 17 Rate Blood Pressure 163/108 H Blood Pressure 163/108 H [Right Brachial artery] O2 Saturation 08/14/19 08/14/19 08/14/19 04:35 04:36 04:37 Temperature Heart Rate 95 96 95 Heart Rate [ Monitoring electrodes] Respiratory 18 17 16 Rate Blood Pressure 175/105 H Blood Pressure [Right Brachial artery] O2 Saturation 08/14/19 08/14/19 08/14/19 04:40 04:45 04:50 Temperature Heart Rate 98 97 96 Heart Rate [ Monitoring electrodes] Respiratory 20 19 17 Rate Blood Pressure Blood Pressure [Right Brachial artery] O2 Saturation 08/14/19 08/14/19 08/14/19 04:55 05:00 05:01 Temperature Heart Rate 99 98 97 Heart Rate [ 96 Monitoring electrodes] Respiratory 20 19 18 Rate Blood Pressure Blood Pressure 167/114 H [Right Brachial artery] O2 Saturation 93 08/14/19 08/14/19 08/14/19 05:02 06:00 06:24 Temperature 36.7 C 36.7 C Heart Rate 97 97 Heart Rate [ 97 Monitoring electrodes] Respiratory 17 15 15 Rate Blood Pressure 167/114 H Blood Pressure 170/117 H [Right Brachial artery] O2 Saturation 94 98 08/14/19 08/14/19 07:00 08:00 Temperature 36.4 C L Heart Rate Heart Rate [ 91 102 H Monitoring electrodes] Respiratory 19 22 Rate Blood Pressure Blood Pressure 181/129 H 197/156 H [Right Brachial artery] O2 Saturation 93 97 Oxygen O2 Source Nasal cannula I&O (Last 24 Hrs): Intake and Output Totals x24h 08/12/19 08/13/19 08/14/19 23:59 23:59 23:59 Intake Total 611.225 429.500 Output Total 5775 9897 Balance -5151.775 -1270.500 General: Other (Lethargic, closing his eyes while speaking to me (last Ativan dose was 12 hours ago).) HEENT: Mucous membr. moist/pink Neck: Supple, No JVD Neuro: Other (Lethargic) Cardiovascular: Regular rate Respiratory: No respiratory distress Abdomen: Soft, Other (No further abdominal wall pitting edema) Extremities: Other (3+ edema to above knees (not to level of hips).) - Results Results: Laboratory Results WBC 11.7 x10^3/uL (4.8-10.8) H 08/14/19 04:40 RBC 4.16 10^6/uL (4.70-6.10) L 08/14/19 04:40 Hgb 11.6 g/dL (14.0-18.0) L 08/14/19 04:40 Hct 36.3 % (42.0-52.0) L 08/14/19 04:40 MCV 87.3 fL (80.0-94.0) 08/14/19 04:40 MCH 27.9 pg (27.0-31.0) 08/14/19 04:40 MCHC 32.0 g/dL (32.0-36.0) 08/14/19 04:40 RDW 15.1 % (12.0-15.0) H 08/14/19 04:40 Plt Count 208 10^3/uL (130-450) 08/14/19 04:40 MPV 10.3 fL (7.4-11.4) 08/14/19 04:40 Neut # (Auto) 8.2 10^3/uL (1.5-6.6) H 08/14/19 04:40 Lymph # (Auto) 2.4 10^3/uL (1.5-3.5) 08/14/19 04:40 [place] # (Auto) 0.7 10^3/uL (0.0-1.0) 08/14/19 04:40 Eos # (Auto) 0.3 10^3/uL (0.0-0.7) 08/14/19 04:40 Baso # (Auto) 0.1 10^3/uL (0.0-0.1) 08/14/19 04:40 Absolute Nucleated RBC 0.00 x10^3/uL 08/14/19 04:40 Nucleated RBC % 0.0 /100WBC 08/14/19 04:40 Sodium 142 mmol/L (135-145) 08/14/19 04:40 Potassium 3.4 mmol/L (3.5-5.0) L 08/14/19 04:40 Chloride 103 mmol/L (101-111) 08/14/19 04:40 Carbon Dioxide 27 mmol/L (21-32) 08/14/19 04:40 Anion Gap 12.0 (6-13) 08/14/19 04:40 BUN 25 mg/dL (6-20) H 08/14/19 04:40 Creatinine 1.4 mg/dL (0.6-1.2) H 08/14/19 04:40 Estimated GFR (MDRD) 56 (>89) L 08/14/19 04:40 Glucose 142 mg/dL (70-100) H 08/14/19 04:40 POC Whole Bld Glucose 143 mg/dL (70 - 100) H 08/14/19 07:57 Glycated Hemoglobin 6.5 % (4.6-6.2) H 08/14/19 04:40 Estim Average Glucose 140 (70-100) H 08/14/19 04:40 Calcium 8.6 mg/dL (8.5-10.3) 08/14/19 04:40 Phosphorus 5.7 mg/dL (2.5-4.6) H 08/14/19 04:40 Magnesium 2.1 mg/dL (1.7-2.8) 08/14/19 04:40 Total Bilirubin 1.3 mg/dL (0.2-1.0) H 08/13/19 15:52 AST 25 IU/L (10-42) 08/13/19 15:52 ALT 38 IU/L (10-60) 08/13/19 15:52 Alkaline Phosphatase 70 IU/L (42-121) 08/13/19 15:52 Troponin I High Sens 89.5 ng/L (2.3-19.7) H* 08/14/19 04:40 B-Natriuretic Peptide 976 pg/mL (5-100) H 08/14/19 04:40 Total Protein 6.7 g/dL (6.7-8.2) 08/13/19 15:52 Albumin 3.7 g/dL (3.2-5.5) 08/13/19 15:52 Globulin 3.0 g/dL (2.1-4.2) 08/13/19 15:52 Albumin/Globulin Ratio 1.2 (1.0-2.2) 08/13/19 15:52 Lipase 29 U/L (22-51) 08/13/19 15:52 Urine Color YELLOW 08/13/19 16:16 Urine Clarity CLEAR (CLEAR) 08/13/19 16:16 Urine pH 6.0 PH (5.0-7.5) 08/13/19 16:16 Ur Specific [place] 1.020 (1.002-1.030) 08/13/19 16:16 Urine Protein TRACE mg/dL (NEGATIVE) 08/13/19 16:16 Urine Glucose (UA) NEGATIVE mg/dL (NEGATIVE) 08/13/19 16:16 Urine Ketones NEGATIVE mg/dL (NEGATIVE) 08/13/19 16:16 Urine Occult Blood NEGATIVE (NEGATIVE) 08/13/19 16:16 Urine Nitrite NEGATIVE (NEGATIVE) 08/13/19 16:16 Urine Bilirubin NEGATIVE (NEGATIVE) 08/13/19 16:16 Urine Urobilinogen 0.2 (NORMAL) E.U./dL (NORMAL) 08/13/19 16:16 Ur Leukocyte Esterase NEGATIVE (NEGATIVE) 08/13/19 16:16 Ur Microscopic Review NOT INDICATED 08/13/19 16:16 Urine Culture Comments NOT INDICATED 08/13/19 16:16 Nasal Screen MRSA (PCR) NEGATIVE (NEGATIVE) 08/13/19 18:07 Urine Opiates Screen NEGATIVE (NEGATIVE) 08/13/19 16:16 Ur Oxycodone Screen NEGATIVE (NEGATIVE) 08/13/19 16:16 Urine Methadone Screen NEGATIVE (NEGATIVE) 08/13/19 16:16 Ur Propoxyphene Screen NEGATIVE (NEGATIVE) 08/13/19 16:16 Ur Barbiturates Screen NEGATIVE (NEGATIVE) 08/13/19 16:16 Ur Tricyclics Screen NEGATIVE (NEGATIVE) 08/13/19 16:16 Ur Phencyclidine Scrn NEGATIVE (NEGATIVE) 08/13/19 16:16 Ur Amphetamine Screen POSITIVE (NEGATIVE) H 08/13/19 16:16 U Methamphetamines Scrn POSITIVE (NEGATIVE) H 08/13/19 16:16 U Benzodiazepines Scrn NEGATIVE (NEGATIVE) 08/13/19 16:16 Urine Cocaine Screen NEGATIVE (NEGATIVE) 08/13/19 16:16 U Cannabinoids Screen POSITIVE (NEGATIVE) H 08/13/19 16:16
[2019-08-14] MEDS: FAMOTIDINE 20 MG TABLET PO SCH ×2 (08:29→21:06)
[2019-08-14] MEDS: carvediloL 3.125 MG TABLET PO SCH ×2 (08:31→21:06)
[2019-08-14] MEDS: LOSARTAN 50 MG TABLET PO SCH ×2 (08:32→21:06)
[2019-08-14] MEDS: SODIUM CHLORIDE FLUSH 0.9% 10 ML SYRINGE IVP SCH ×3 (11:38→21:07)
--- NOTE | 2019-08-14 12:16 | PHARMACY PROGRESS NOTE ---
- Best Possible Medication History Admit Date and Time: 08/13/19 4552 Processed by: Pharmacy Medication History completed: Yes Patient Interview: Completed Secondary Source(s): Physician records, Pharmacy records, Insurance records As the person ultimately responsible for medication therapy, providers are able to order a medication from an existing home medication list in [facility] via the "Reconcile Routine" prior to Confirmation of that medication by clerical and office support workers. Such practice is discouraged except when the physician, in their clinical judgment, deems that a medical need exists for a medication without regard to previous use.
[2019-08-14] MEDS: hydrALAZINE 25 MG TABLET PO SCH ×3 (12:38→21:06)
[2019-08-14] MEDS ORDERED: LORazepam 2 MG/ML VIAL IVP PRN (16:53)
[2019-08-15] MEDS: MORPHINE 2 MG/ML CARPUJECT IVP PRN ×2 (01:59→22:12)
[2019-08-15 06:12] LABS: CALCIUM 8.7 mg/dL (8.5-10.3); MAGNESIUM 1.9 mg/dL (1.7-2.8); PHOSPHORUS 4.4 mg/dL (2.5-4.6)
[2019-08-15] MEDS: FUROSEMIDE 40 MG/4 ML VIAL IVP SCH ×2 (06:42→13:53)
[2019-08-15] MEDS: FAMOTIDINE 20 MG TABLET PO SCH ×2 (08:11→20:34)
[2019-08-15] MEDS: INSULIN ASPART 300 UNIT/3 ML PEN SUBQ SCH ×4 (08:11→21:23)
[2019-08-15] MEDS: carvediloL 3.125 MG TABLET PO SCH (08:12)
[2019-08-15] MEDS: LOSARTAN 50 MG TABLET PO SCH ×2 (08:12→20:34)
[2019-08-15] MEDS: hydrALAZINE 25 MG TABLET PO SCH ×4 (08:12→20:35)
[2019-08-15] MEDS: SPIRONOLACTONE 25 MG TABLET PO SCH (08:12)
[2019-08-15] MEDS: NICOTINE 14 MG PATCH TOP SCH (08:12)
[2019-08-15] MEDS: PRENATAL VITAMIN TABLET PO SCH (08:12)
--- NOTE | 2019-08-15 08:21 | PROVIDER PROGRESS NOTE ---
Assessment/Plan - Problem List (1) V-tach Assessment/Plan: He had a 4 beat run of V. tach, was asymptomatic. It is likely related to low potassium from rapid diuresis. Replace potassium. Continue telemetry. (2) Hypertensive urgency Assessment/Plan: Blood pressure still very poorly controlled, diastolic of 130. Hydralazine to be increased from 25 4 times daily to 50 4 times daily. Carvedilol to be increased to 12.5 twice daily today and 25 twice daily tomorrow. Will hope to transfer out of the ICU when blood pressure is under better control, hopefully later today. (3) Anasarca Assessment/Plan: His BNP has decreased from 900s to 400s. He is approximately 5 L negative fluid balance since admission. Continue IV twice daily Lasix. Follow BMP and magnesium daily. (4) Acute on chronic systolic heart failure, NYHA class 3 Assessment/Plan: His edema and dyspnea have improved considerably. Echo was not ordered, it would not warp changer. Continue to increase his carvedilol dose, remain on IV twice daily Lasix, continue Losartan and Spironolactone. We do not carry Entresto here to resume that. (5) Tachycardia Assessment/Plan: Improving as his carvedilol dose is being increased. (6) Methamphetamine abuse Assessment/Plan: He is going through meth withdrawal with hypersomnolence yesterday and today after being fidgety and hyper alert on day 1. I told him I suspect that he is going through meth withdrawal because of his somnolence and he stated that he does not use meth routinely and frequently. There was meth found on urine drug screen however (7) CKD (chronic kidney disease) stage 3, GFR 30-59 ml/min Assessment/Plan: Stable, minimal change as the volume overload is diuresing. He had creatinines of 1.4-1.6 going back last year. (8) Diet-controlled diabetes mellitus Assessment/Plan: The A1c was 6.5 indicating good control. He is on a carb controlled diet here, SS insulin coverage if needed. (9) Sleep apnea with use of continuous positive airway pressure (CPAP) Assessment/Plan: His brought his home CPAP unit to use here - Current Meds Current Meds: Current Medications Generic Name Dose Route Start Last Admin Trade Name Freq PRN Reason Stop Dose Admin Acetaminophen 650 mg 08/13/19 17:07 08/14/19 01:04 Tylenol PO 650 mg Q4HR PRN Administration Pain 1 to 4 Famotidine 20 mg 08/13/19 21:00 08/14/19 21:06 Pepcid PO 20 mg BID TYSON Administration Furosemide 60 mg 08/14/19 06:00 08/15/19 06:42 Lasix Inj 40 Mg Vial IVP 60 mg BIDDIURETIC TYSON Administration Sodium Chloride 500 mls @ 0 mls/hr 08/13/19 18:49 08/14/19 20:48 Normal Saline 0.9% IV Infused Q24H PRN Infusion TKO RATE TKO Insulin Aspart 1 - 5 unit 08/13/19 21:00 08/14/19 21:08 Novolog SUBQ 1 unit 0800,1200,1700,2100 TYSON Administration Protocol Lorazepam 0.5 mg 08/14/19 16:53 08/14/19 22:57 Ativan Inj (Vial) IVP 0.5 mg Q12H PRN Administration Restlessness Losartan Potassium 50 mg 08/14/19 09:00 08/14/19 21:06 Cozaar PO 50 mg BID TYSON Administration Morphine Sulfate 2 mg 08/14/19 06:54 08/15/19 01:59 Morphine (Carpuject) IVP 2 mg Q6H PRN Administration Dyspnea Nicotine 1 patch 08/13/19 23:15 08/14/19 08:26 Nicoderm TOP 1 patch DAILY TYSON Administration Multivit/Folic Acid/Iron 1 tab 08/14/19 08:00 08/14/19 08:26 Trinatal Rx 1 PO 1 tab DAILYWM TYSON Administration Sodium Chloride 10 ml 08/14/19 01:00 08/14/19 21:07 Normal Saline Flush 0.9% IVP 10 ml 0100,0900,1700 TYSON Administration Spironolactone 25 mg 08/14/19 09:00 08/14/19 08:26 Aldactone PO 25 mg DAILY TYSON Administration - Lab Result Fish Bone Diagrams: 08/14/19 04:40 08/15/19 05:09 - Additional Planning My Orders: My Active Orders 08/14/19 08:00 Vitamin [Trinatal Rx 1] 1 tab PO DAILYWM 08/14/19 09:00 Losartan [Cozaar] 50 mg PO BID Spironolactone [Aldactone] 25 mg PO DAILY 08/14/19 16:53 LORazepam INJ [Ativan Inj (Vial)] 0.5 mg IVP Q12H PRN 08/15/19 BMP - BASIC METABOLIC PANEL [CHEM] Routine 08/15/19 08:17 Miscellaenous Nursing Order [RC] QSHIFT 08/15/19 09:00 carvediloL [Coreg] 12.5 mg PO BID hydrALAZINE [Apresoline] 50 mg PO QID 08/16/19 05:00 BMP - BASIC METABOLIC PANEL [CHEM] DAILYLAB CALCIUM [CHEM] DAILYLAB MAGNESIUM [CHEM] DAILYLAB PHOSPHORUS [CHEM] DAILYLAB POTASSIUM [CHEM] DAILYLAB Subjective - Subjective Patient Reports: Feeling Better, Fatigue (He is sitting up, feet dangling, eyes are closed, he opens him to answer and then closes them again.) Objective Vital Signs: Vital Signs - 24 hr 08/14/19 08/14/19 08/14/19 08:41 08:45 08:50 Temperature Heart Rate [ 88 88 Monitoring electrodes] Respiratory 22 20 Rate Blood Pressure 197/158 H Blood Pressure 198/142 H 191/152 H [Right Brachial artery] O2 Saturation 97 97 08/14/19 08/14/19 08/14/19 08:55 09:00 09:30 Temperature Heart Rate [ 90 89 21 L Monitoring electrodes] Respiratory 18 18 18 Rate Blood Pressure Blood Pressure 196/143 H 193/144 H 208/166 H [Right Brachial artery] O2 Saturation 98 95 08/14/19 08/14/19 08/14/19 10:00 10:30 11:00 Temperature Heart Rate [ 93 95 99 Monitoring electrodes] Respiratory 17 18 18 Rate Blood Pressure Blood Pressure 206/159 H 221/169 H 211/165 H [Right Brachial artery] O2 Saturation 96 97 08/14/19 08/14/19 08/14/19 12:00 13:00 14:00 Temperature 36.7 C Heart Rate [ 100 96 97 Monitoring electrodes] Respiratory 21 19 24 Rate Blood Pressure Blood Pressure 181/133 H 175/126 H 183/120 H [Right Brachial artery] O2 Saturation 97 97 94 08/14/19 08/14/19 08/14/19 15:00 16:00 17:00 Temperature 36.3 C L Heart Rate [ 93 101 H 95 Monitoring electrodes] Respiratory 24 18 19 Rate Blood Pressure Blood Pressure 190/136 H 190/144 H 180/127 H [Right Brachial artery] O2 Saturation 94 99 94 08/14/19 08/14/19 08/14/19 18:00 19:00 20:22 Temperature 37.6 C H Heart Rate [ 93 103 H 100 Monitoring electrodes] Respiratory 18 17 19 Rate Blood Pressure Blood Pressure 188/129 H 181/135 H 172/109 H [Right Brachial artery] O2 Saturation 98 93 08/14/19 08/14/19 08/14/19 21:00 22:00 23:00 Temperature Heart Rate [ 97 95 97 Monitoring electrodes] Respiratory 21 16 21 Rate Blood Pressure Blood Pressure 181/122 H 168/114 H 161/123 H [Right Brachial artery] O2 Saturation 98 97 94 08/15/19 08/15/19 08/15/19 00:00 01:00 02:00 Temperature Heart Rate [ 99 95 85 Monitoring electrodes] Respiratory 20 19 16 Rate Blood Pressure Blood Pressure 162/125 H 157/121 H 164/129 H [Right Brachial artery] O2 Saturation 99 96 99 08/15/19 08/15/19 08/15/19 02:25 03:00 04:00 Temperature 37.0 C Heart Rate [ 93 94 Monitoring electrodes] Respiratory 18 16 Rate Blood Pressure Blood Pressure 169/115 H 188/141 H [Right Brachial artery] O2 Saturation 92 96 08/15/19 08/15/19 08/15/19 05:00 06:00 07:00 Temperature Heart Rate [ 96 69 90 Monitoring electrodes] Respiratory 15 15 15 Rate Blood Pressure Blood Pressure 194/122 H 176/105 H 174/131 H [Right Brachial artery] O2 Saturation 97 98 96 Oxygen O2 Source Nasal cannula I&O (Last 24 Hrs): Intake and Output Totals x24h 08/13/19 08/14/19 08/15/19 23:59 23:59 23:59 Intake Total 275.148 9391.500 350 Output Total 5770 5400 1450 Balance -5158.485 -7132.500 -4427 General: Other HEENT: Atraumatic, EOMI Neck: Supple, No JVD Neuro: Non Focal, Other (Somnolent) Respiratory: No respiratory distress, Breath sounds nml Abdomen: Normal bowel sounds, Soft Extremities: Other (2+ edema to mid shins today.) - Results Results: Laboratory Results WBC 11.7 x10^3/uL (4.8-10.8) H 08/14/19 04:40 RBC 4.16 10^6/uL (4.70-6.10) L 08/14/19 04:40 Hgb 11.6 g/dL (14.0-18.0) L 08/14/19 04:40 Hct 36.3 % (42.0-52.0) L 08/14/19 04:40 MCV 87.3 fL (80.0-94.0) 08/14/19 04:40 MCH 27.9 pg (27.0-31.0) 08/14/19 04:40 MCHC 32.0 g/dL (32.0-36.0) 08/14/19 04:40 RDW 15.1 % (12.0-15.0) H 08/14/19 04:40 Plt Count 208 10^3/uL (130-450) 08/14/19 04:40 MPV 10.3 fL (7.4-11.4) 08/14/19 04:40 Neut # (Auto) 8.2 10^3/uL (1.5-6.6) H 08/14/19 04:40 Lymph # (Auto) 2.4 10^3/uL (1.5-3.5) 08/14/19 04:40 [place] # (Auto) 0.7 10^3/uL (0.0-1.0) 08/14/19 04:40 Eos # (Auto) 0.3 10^3/uL (0.0-0.7) 08/14/19 04:40 Baso # (Auto) 0.1 10^3/uL (0.0-0.1) 08/14/19 04:40 Absolute Nucleated RBC 0.00 x10^3/uL 08/14/19 04:40 Nucleated RBC % 0.0 /100WBC 08/14/19 04:40 Sodium 142 mmol/L (135-145) 08/14/19 04:40 Potassium 3.3 mmol/L (3.5-5.0) L 08/15/19 05:09 Chloride 103 mmol/L (101-111) 08/14/19 04:40 Carbon Dioxide 27 mmol/L (21-32) 08/14/19 04:40 Anion Gap 12.0 (6-13) 08/14/19 04:40 BUN 25 mg/dL (6-20) H 08/14/19 04:40 Creatinine 1.4 mg/dL (0.6-1.2) H 08/14/19 04:40 Estimated GFR (MDRD) 56 (>89) L 08/14/19 04:40 Glucose 142 mg/dL (70-100) H 08/14/19 04:40 POC Whole Bld Glucose 116 mg/dL (70 - 100) H 08/15/19 07:57 Glycated Hemoglobin 6.5 % (4.6-6.2) H 08/14/19 04:40 Estim Average Glucose 140 (70-100) H 08/14/19 04:40 Calcium 8.7 mg/dL (8.5-10.3) 08/15/19 05:09 Phosphorus 4.4 mg/dL (2.5-4.6) 08/15/19 05:09 Magnesium 1.9 mg/dL (1.7-2.8) 08/15/19 05:09 Total Bilirubin 1.3 mg/dL (0.2-1.0) H 08/13/19 15:52 AST 25 IU/L (10-42) 08/13/19 15:52 ALT 38 IU/L (10-60) 08/13/19 15:52 Alkaline Phosphatase 70 IU/L (42-121) 08/13/19 15:52 Troponin I High Sens 89.5 ng/L (2.3-19.7) H* 08/14/19 04:40 B-Natriuretic Peptide 491 pg/mL (5-100) H 08/15/19 05:09 Total Protein 6.7 g/dL (6.7-8.2) 08/13/19 15:52 Albumin 3.7 g/dL (3.2-5.5) 08/13/19 15:52 Globulin 3.0 g/dL (2.1-4.2) 08/13/19 15:52 Albumin/Globulin Ratio 1.2 (1.0-2.2) 08/13/19 15:52 Lipase 29 U/L (22-51) 08/13/19 15:52 Urine Color YELLOW 08/13/19 16:16 Urine Clarity CLEAR (CLEAR) 08/13/19 16:16 Urine pH 6.0 PH (5.0-7.5) 08/13/19 16:16 Ur Specific [place] 1.020 (1.002-1.030) 08/13/19 16:16 Urine Protein TRACE mg/dL (NEGATIVE) 08/13/19 16:16 Urine Glucose (UA) NEGATIVE mg/dL (NEGATIVE) 08/13/19 16:16 Urine Ketones NEGATIVE mg/dL (NEGATIVE) 08/13/19 16:16 Urine Occult Blood NEGATIVE (NEGATIVE) 08/13/19 16:16 Urine Nitrite NEGATIVE (NEGATIVE) 08/13/19 16:16 Urine Bilirubin NEGATIVE (NEGATIVE) 08/13/19 16:16 Urine Urobilinogen 0.2 (NORMAL) E.U./dL (NORMAL) 08/13/19 16:16 Ur Leukocyte Esterase NEGATIVE (NEGATIVE) 08/13/19 16:16 Ur Microscopic Review NOT INDICATED 08/13/19 16:16 Urine Culture Comments NOT INDICATED 08/13/19 16:16 Nasal Screen MRSA (PCR) NEGATIVE (NEGATIVE) 08/13/19 18:07 Urine Opiates Screen NEGATIVE (NEGATIVE) 08/13/19 16:16 Ur Oxycodone Screen NEGATIVE (NEGATIVE) 08/13/19 16:16 Urine Methadone Screen NEGATIVE (NEGATIVE) 08/13/19 16:16 Ur Propoxyphene Screen NEGATIVE (NEGATIVE) 08/13/19 16:16 Ur Barbiturates Screen NEGATIVE (NEGATIVE) 08/13/19 16:16 Ur Tricyclics Screen NEGATIVE (NEGATIVE) 08/13/19 16:16 Ur Phencyclidine Scrn NEGATIVE (NEGATIVE) 08/13/19 16:16 Ur Amphetamine Screen POSITIVE (NEGATIVE) H 08/13/19 16:16 U Methamphetamines Scrn POSITIVE (NEGATIVE) H 08/13/19 16:16 U Benzodiazepines Scrn NEGATIVE (NEGATIVE) 08/13/19 16:16 Urine Cocaine Screen NEGATIVE (NEGATIVE) 08/13/19 16:16 U Cannabinoids Screen POSITIVE (NEGATIVE) H 08/13/19 16:16
[2019-08-15] MEDS ORDERED: POTASSIUM CHLORIDE 20 MEQ TABLET PO ONE (08:52)
[2019-08-15] MEDS ORDERED: hydrALAZINE 25 MG TABLET PO SCH (09:00)
[2019-08-15] MEDS ORDERED: carvediloL 3.125 MG TABLET PO ONE (09:00)
[2019-08-15] MEDS ORDERED: carvediloL 12.5 MG TABLET PO SCH ×2 (09:00→21:00)
[2019-08-15] MEDS ORDERED: hydrALAZINE 25 MG TABLET PO ONE (09:15)
[2019-08-15] MEDS: ACETAMINOPHEN 325 MG TABLET PO PRN (09:21)
[2019-08-15 10:26] LABS: CALCIUM 8.7 mg/dL (8.5-10.3); CREATININE 1.4 mg/dL (0.6-1.2)
[2019-08-15] MEDS ORDERED: cloNIDine 0.1 MG PATCH TOP SCH (13:00)
[2019-08-15] MEDS: SODIUM CHLORIDE FLUSH 0.9% 10 ML SYRINGE IVP SCH ×2 (13:49→17:30)
[2019-08-15] MEDS: carvediloL 12.5 MG TABLET PO SCH ×2 (14:09→20:35)
[2019-08-15 15:17] LABS: ABG PCO2 43 mmHg (34-45); ABG PH 7.49 (7.35-7.45); ABG PO2 84 mmHg (80-100)
[2019-08-15 15:18] LABS: ABG BASE EXCESS 7.3 mmol/L (-2.0-3.0); ABG HCO3 31.6 mmol/L (22.0-26.0); ABG OXYGEN SATURATION 96 % (94-98); ABG TCO2 32.9 MMOL/L (21.0-29.0); ALLEN TEST POSITIVE
--- NOTE | 2019-08-15 19:44 | Discharge Plan ---
Discharge Plan Problem Reviewed?: Yes Disposition: Home, Self Care Condition: Fair Prescriptions: Spironolactone [Aldactone] 25 mg PO DAILY #30 tablet Carvedilol [Coreg] 25 mg PO BID #60 tablet Hydralazine HCl 100 mg PO BID #60 tablet Furosemide [Lasix] 40 mg PO DAILY #30 tablet Losartan Potassium 100 mg PO DAILY #30 tablet Diet: Diabetic (and Low sodium diet also) Activity Restrictions: Activity as Tolerated Shower Restrictions: No Driving Restrictions: Yes (You may not drive a vehicle if you are as sleepy as you were here) Instruction Topics: Heart Failure Meds Control, Heart Failure Warning Signs, Heart Failure Tracking Weight, Abuse Meth Abuse and Addiction, Heart Failure Diet Changes Health Concerns: You were here to manage severe fluid overload (Anasarca) related to not being on your heart medications for weeks or months. The pharmacist here determined that you have not filled those prescriptions for many months! It is important that you stay on your heart failure medications to keep your weak heart stronger and prevent retaining fluid like this. Also, staying on your medicines would control your severe hypertension. You are on new medications for better blood pressure control. You already have chronic kidney disease which is related to probably all of the above plus diabetes. Smoking is also adding to your disease. Please stop smoking! Methamphetamine use is not advised, when you withdraw it causes being sleepy like this for days and days. All your medicines have been refilled for you and new meds prescribed electronically, and all were sent to your [facility] pharmacy in [place]. Keep this Clonidine patch on for high blood pressure, for 5 more days. It gets changed once a week, so it is very convenient. Your PCP will advise you if you need it refilled. Keep the upcoming appointment with Dr. José Antonio Jiang, and remember that he can refill all your prescriptions, even if they were started by a specialist. Plan of Treatment: As above. Care Goals: Improvement in symptoms and stabilization are the goals. Assessment: Patient understands and is agreeable with the plan. Additional Instructions or Follow Up instructions: YOU MAY NOT DRIVE A VEHICLE UNTIL CLEARED TO DO SO BY YOUR PCP. If you are stopped by police and found to be driving, with this medical restriction in place, you have broken the law and you will be arrested. This restriction is ordered because of how sleepy you were here, due to Methamphetamine withdrawal. No Smoking: If you smoke, Please STOP! Call for help. Follow-up with: RENITA JIANG MD [Primary Care Provider] -
[2019-08-16] MEDS: SODIUM CHLORIDE FLUSH 0.9% 10 ML SYRINGE IVP SCH ×2 (00:19→08:11)
[2019-08-16] MEDS: ACETAMINOPHEN 325 MG TABLET PO PRN (02:13)
[2019-08-16 04:58] LABS: BASOPHILS # (AUTO) 0.1 10^3/uL (0.0-0.1); BASOPHILS % (AUTO) 0.5 %; EOSINOPHILS # (AUTO) 0.4 10^3/uL (0.0-0.7); EOSINOPHILS % (AUTO) 3.3 %; HGB - HEMOGLOBIN 13.9 g/dL (14.0-18.0); LYMPHOCYTES # (AUTO) 2.6 10^3/uL (1.5-3.5); LYMPHOCYTES % (AUTO) 22.5 %; MEAN CORPUSCULAR HGB CONC 32.6 g/dL (32.0-36.0); MEAN CORPUSCULAR VOLUME 85.7 fL (80.0-94.0); MEAN PLATELET VOLUME 10.6 fL (7.4-11.4); MONOCYTES # (AUTO) 0.9 10^3/uL (0.0-1.0); MONOCYTES % (AUTO) 7.6 %; NEUTROPHILS # (AUTO) 7.5 10^3/uL (1.5-6.6); NEUTROPHILS % (AUTO) 65.6 %; PLT - PLATELET COUNT 282 10^3/uL (130-450); RED BLOOD COUNT 4.97 10^6/uL (4.70-6.10); RED CELL DISTRIBUTION WIDTH 15.2 % (12.0-15.0); WHITE BLOOD COUNT 11.4 x10^3/uL (4.8-10.8)
[2019-08-16 05:19] LABS: CALCIUM 9.3 mg/dL (8.5-10.3); CREATININE 1.4 mg/dL (0.6-1.2); MAGNESIUM 2.2 mg/dL (1.7-2.8); PHOSPHORUS 4.3 mg/dL (2.5-4.6)
[2019-08-16] MEDS: FUROSEMIDE 40 MG/4 ML VIAL IVP SCH (06:32)
[2019-08-16] MEDS: PRENATAL VITAMIN TABLET PO SCH (08:09)
[2019-08-16] MEDS: SPIRONOLACTONE 25 MG TABLET PO SCH (08:10)
[2019-08-16] MEDS: hydrALAZINE 25 MG TABLET PO SCH (08:10)
[2019-08-16] MEDS: FAMOTIDINE 20 MG TABLET PO SCH (08:10)
[2019-08-16] MEDS: LOSARTAN 50 MG TABLET PO SCH (08:11)
[2019-08-16] MEDS: NICOTINE 14 MG PATCH TOP SCH (08:11)
[2019-08-16] MEDS: INSULIN ASPART 300 UNIT/3 ML PEN SUBQ SCH ×2 (08:15→11:57)
[2019-08-16] MEDS ORDERED: carvediloL 12.5 MG TABLET PO SCH (09:00)
--- NOTE | 2019-08-16 10:18 | DISCHARGE SUMMARY ---
Discharge Summary Admit Date: 08/13/19 Discharge Date: 08/16/19 Discharging Provider: Dr Mildred Sandoval Primary Care Provider: Dr Kody Soto Code Status: Attempt Resuscitation Condition at Discharge: Stable Discharge Disposition: 01 Home, Self Care - HPI History of Present Illness: This is a 39 y/o white male with a history of HTN, diet-controlled DM, and a non-ischemic cardiomyopathy diagnosed 8 months ago when he presented here with anasarca, dyspnea and abdominal pain. He was then transferred to [facility] in [place] and had a coronary angio that showed no coronary blockages, his abdominal pain resolved with diuresis of marked abdominal wall (and probably intestinal) edema. He was discharged on Carvedilol, Spironolactone and Entresto. He claims he ran out of all his meds a month ago and didn't have any refills left, and didn't know he could get refills from his PCP. He developed 8 pound weight gain and dyspnea, orthopnea and abdominal distension, again with discomfort, and presented to our ER. In the ER he was tachypneic, O2 sat was 93% on room air, that dropped to 80% briefly, his BP was 202/141, HR 109 in sinus tach and he had 4+ pitting edema (anasarca) up to his hips. CXR and CT abdomen showed mild pulmonary edema, bilateral effusions and fluid in the right lower abdomen without appendicitis. BNP was 968. BUN/creat was 26/1.6. He was admitted to the ICU for hypertensive urgency and a CHF exacerbation of his chronic systolic heart failure, due to medication non- compliance. His other work-up showed pos. Meth, Amphetamines and cannibis in his urine tox screen. He wanted to have Full Code status. - HOSPITAL COURSE Hospital Course: (1) Hypertensive urgency Blood pressure was very difficult to control for many days, despite using iv Lasix, restarting his usual meds and increasing their doses (except we don't carry Entresto here). He needed the addition of oral Hydralazine, and that dose also needed to be increased. On his final 2 days he had BP readings of 120/70- 90. (2) Anasarca He was kept on Lasix iv bid until discharge. His BNP decreased from 900s to 400s and his pitting edema decreased every day. Oxygen was weaned to room air. He was 12 L in negative fluid balance from admission, with improvement in his creat, and weight was down at least 5 kg. (3) Acute on chronic systolic heart failure, NYHA class 3 His edema and dyspnea improved considerably. Echo was not ordered, since it would not have changed management. He was discharged on maximum Carvedilol dose, daily oral Lasix, Losartan and Spironolactone, plus new Hydralazine. We do not carry Entresto here to resume that. He needs F/U with his Director Of [employer] Resources after discharge. (4) V-tach He had one 4 beat run of V. tach, was asymptomatic. It was likely related to low potassium from rapid diuresis, which was replaced. (5) Tachycardia Sinus tachycardia was probably related to poor cardiac output plus his Meth use. The heart rate corrected slowly as his Carvedilol dose was increased. (6) Methamphetamine abuse He was awake and fidgety on the evening of admission, then was somnolent every day afterward. He was likely going through meth withdrawal with hypersomnolence. 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 At discharge, his instructions stated he may not drive a vehicle due to excessive somnolence, until cleared to do so by his PCP. His picked him up and heard the instructions. Since the patient had a scheduled appointment with Dr. Soto on the day after discharge, his office was contacted, so that I could give Dr Soto a warm hand-off to discuss this, but I never got a call back from him. (7) CKD (chronic kidney disease) stage 3, GFR 30-59 ml/min Review of prior labs showed similar creatinines of 1.4-1.6 going back last year. The BUN/creat had mild improvement here, as the volume overload was diuresed, consistent with cardio-renal syndrome. BUN/creat was at discharge. (8) Diet-controlled diabetes mellitus The A1c at admission was 6.5, indicating good control on his home diabetic diet management. Here, he was on a carb controlled diet and SS insulin coverage if needed. (9) Sleep apnea with use of continuous positive airway pressure (CPAP) His brought his home CPAP unit to use here, which he kept removing for comfort. - ALLERGIES Allergies/Adverse Reactions: Allergies Allergy/AdvReac Type Severity Reaction Status Date / Time No Known Drug Allergies Allergy Verified 12/01/18 20:29 - MEDICATIONS Home Medications: Ambulatory Orders Medication Instructions Recorded Confirmed Carvedilol [Coreg] 25 mg PO BID #60 tablet 08/16/19 Furosemide [Lasix] 40 mg PO DAILY #30 tablet 08/16/19 Hydralazine HCl 100 mg PO BID #60 tablet 08/16/19 Losartan Potassium 100 mg PO DAILY #30 tablet 08/16/19 Spironolactone [Aldactone] 25 mg PO DAILY #30 tablet 08/16/19 - PHYSICAL EXAM AT DISCHARGE General Appearance: positive: No acute distress, Lethargic Eyes Bilateral: positive: Normal inspection, EOMI ENT: positive: No signs of dehydration Neck: positive: Nml inspection, No JVD Respiratory: positive: No respiratory distress, Breath sounds nml Cardiovascular: positive: Regular rate & rhythm, No murmur Abdomen: positive: Non-tender, No distention Skin: positive: Color nml Extremities: positive: Non-tender, No pedal edema Neurologic/Psychiatric: positive: Oriented x3, Other (Somnolent) - LABS Result Diagrams: 08/16/19 04:42 08/16/19 04:42 - DIAGNOSTIC IMAGING Diagnostic Imaging Results: Final report reviewed - FOLLOW UP Follow Up: See PCP tomorrow for a scheduled appointment. See Director Of Career Resources in the next 1-2 mos, for hospital follow-up. - TIME SPENT Time Spent in Discharge (Minutes): 60
[2019-08-16 12:21] VITALS: BP 124/80
== END 2019-08-16 12:30 | disposition home or self-care (01) | DRG 291 ==
LOC: ED 15:09 → ICU 17:07
PROVIDERS: ADMIT Internal Medicine; ATTEND Internal Medicine
DX: I13.0 Hypertensive heart and chronic kidney disease with heart failure and stage 1 through stage 4 chronic kidney disease, or unspecified chronic kidney disease (principal); I50.23 Acute on chronic systolic (congestive) heart failure; I16.0 Hypertensive urgency; I42.8 Other cardiomyopathies; T50.916A Underdosing of multiple unspecified drugs, medicaments and biological substances, initial encounter; N18.3 Chronic kidney disease, stage 3 (moderate); E11.22 Type 2 diabetes mellitus with diabetic chronic kidney disease; G47.33 Obstructive sleep apnea (adult) (pediatric); E87.6 Hypokalemia; F15.10 Other stimulant abuse, uncomplicated; F17.200 Nicotine dependence, unspecified, uncomplicated; D64.9 Anemia, unspecified; F41.9 Anxiety disorder, unspecified; F32.9 Major depressive disorder, single episode, unspecified; Z91.128 Patient's intentional underdosing of medication regimen for other reason; Z72.89 Other problems related to lifestyle
CPT/HCPCS: 36415; 36600; 71045; 74177; 80048; 80053; 80306; 81003; 82310; 82803; 83036; 83690; 83735; 83880; 84100; 84132; 84484; 85025; 87150; 93005; 96374; 99284; 99285; A9270; J2060; Q9967; 81001; 87086

== ENCOUNTER 2019-08-27 08:00 | Outpatient (CLI) | payer MEDICAID ==
[2019-08-27 18:06] LABS: HGB - HEMOGLOBIN 13.7 g/dL (14.0-18.0); MEAN CORPUSCULAR HEMOGLOBIN 27.5 pg (27.0-31.0); MEAN CORPUSCULAR HGB CONC 30.9 g/dL (32.0-36.0); MEAN PLATELET VOLUME 10.8 fL (7.4-11.4); RED BLOOD COUNT 4.99 10^6/uL (4.70-6.10); RED CELL DISTRIBUTION WIDTH 14.3 % (12.0-15.0); WHITE BLOOD COUNT 9.1 x10^3/uL (4.8-10.8)
[2019-08-27 19:31] LABS: CALCIUM 9.1 mg/dL (8.5-10.3); CREATININE 1.2 mg/dL (0.6-1.2)
== END 2019-08-27 23:59 | disposition home or self-care (01) ==
LOC: LAB.WCP 08:00
PROVIDERS: ATTEND Family Medicine
DX: I50.9 Heart failure, unspecified (principal)
CPT/HCPCS: 36415; 80048; 83880; 85027

== ENCOUNTER 2019-10-22 08:00 | Outpatient (CLI) | payer MEDICAID ==
[2019-10-22 18:17] LABS: BASOPHILS # (AUTO) 0.1 10^3/uL (0.0-0.1); BASOPHILS % (AUTO) 0.6 %; EOSINOPHILS # (AUTO) 0.2 10^3/uL (0.0-0.7); HGB - HEMOGLOBIN 13.8 g/dL (14.0-18.0); LYMPHOCYTES # (AUTO) 2.2 10^3/uL (1.5-3.5); LYMPHOCYTES % (AUTO) 26.3 %; MEAN CORPUSCULAR HEMOGLOBIN 26.1 pg (27.0-31.0); MEAN CORPUSCULAR HGB CONC 31.3 g/dL (32.0-36.0); MEAN CORPUSCULAR VOLUME 83.4 fL (80.0-94.0); MEAN PLATELET VOLUME 11.2 fL (7.4-11.4); MONOCYTES # (AUTO) 0.7 10^3/uL (0.0-1.0); MONOCYTES % (AUTO) 8.4 %; NEUTROPHILS # (AUTO) 5.1 10^3/uL (1.5-6.6); NEUTROPHILS % (AUTO) 62.1 %; PLT - PLATELET COUNT 209 10^3/uL (130-450); RED BLOOD COUNT 5.29 10^6/uL (4.70-6.10); RED CELL DISTRIBUTION WIDTH 14.8 % (12.0-15.0); WHITE BLOOD COUNT 8.2 x10^3/uL (4.8-10.8)
[2019-10-22 18:56] LABS: CALCIUM 9.7 mg/dL (8.5-10.3); CREATININE 1.2 mg/dL (0.6-1.2)
== END 2019-10-22 23:59 | disposition home or self-care (01) ==
LOC: LAB.WCP 08:00
PROVIDERS: ATTEND Family Medicine
DX: I50.9 Heart failure, unspecified (principal)
CPT/HCPCS: 36415; 80048; 83880; 85025

== ENCOUNTER 2020-01-24 21:23 | Outpatient (CLI) | payer MEDICAID | END 2020-01-24 21:24 | disposition home or self-care (01) | LOC: COV 21:23 | PROVIDERS: ATTEND Family Medicine | DX: Z20.828 Contact with and (suspected) exposure to other viral communicable diseases (principal) ==

== ENCOUNTER 2020-03-22 19:24 | Outpatient (CLI) | payer MEDICAID | END 2020-03-22 19:25 | disposition critical access hospital (66) | LOC: EMS 19:24 | PROVIDERS: ATTEND Surgery | DX: E11.65 Type 2 diabetes mellitus with hyperglycemia (principal) | CPT/HCPCS: A0425; A0429; A0999 ==

== ENCOUNTER 2020-03-22 19:40 | Observation (INO) | payer MEDICAID ==
[2020-03-22 19:56] LABS: BASOPHILS # (AUTO) 0.1 10^3/uL (0.0-0.1); BASOPHILS % (AUTO) 0.7 %; EOSINOPHILS # (AUTO) 0.1 10^3/uL (0.0-0.7); EOSINOPHILS % (AUTO) 0.8 %; HGB - HEMOGLOBIN 17.7 g/dL (14.0-18.0); LYMPHOCYTES # (AUTO) 2.3 10^3/uL (1.5-3.5); LYMPHOCYTES % (AUTO) 22.9 %; MEAN CORPUSCULAR HEMOGLOBIN 28.1 pg (27.0-31.0); MEAN CORPUSCULAR HGB CONC 34.6 g/dL (32.0-36.0); MEAN CORPUSCULAR VOLUME 81.1 fL (80.0-94.0); MEAN PLATELET VOLUME 11.1 fL (7.4-11.4); MONOCYTES # (AUTO) 0.9 10^3/uL (0.0-1.0); MONOCYTES % (AUTO) 8.9 %; NEUTROPHILS # (AUTO) 6.6 10^3/uL (1.5-6.6); NEUTROPHILS % (AUTO) 66.2 %; PLT - PLATELET COUNT 277 10^3/uL (130-450)
--- NOTE | 2020-03-22 19:57 | ED Physician Documentation ---
History of Present Illness - Stated complaint Stated Complaint: BLOOD SUGAR ISSUE - Chief complaint Chief Complaint: General - History obtained from History obtained from: Patient - History of Present Illness Timing: How many weeks ago (1) Pain level max: 0 Pain level now: 0 - Additonal information Additional information: 39-year-old male presents to the emergency department with high blood sugar today. He states he has not been feeling well for the past week. Nothing makes it better or worse. Patient states that he has been told he has been diabetic in the past, but has not been on medications for several years. He states normally he does not have issues with his blood sugar. No vomiting. Occasional abdominal cramping. No diarrhea or constipation. No fevers. No chills. No cough. No urinary symptoms. Review of Systems Ten Systems: 10 systems reviewed and negative Constitutional: denies: Fever, Chills Ears: denies: Ear pain Nose: denies: Rhinorrhea / runny nose, Congestion Respiratory: denies: Cough GI: denies: Vomiting, Diarrhea Skin: denies: Rash Musculoskeletal: denies: Neck pain, Back pain Neurologic: denies: Headache PD PAST MEDICAL HISTORY - Past Medical History Cardiovascular: Hypertension Respiratory: Pneumonia, Sleep apnea Neuro: None Endocrine/Autoimmune: Type 2 diabetes GI: None : None HEENT: None Psych: Depression, Anxiety Musculoskeletal: None Derm: None - Past Surgical History Past Surgical History: Yes General: Other (Laparoscopy and Biopsy of spleen) HEENT: Tonsil/Adenoidectomy - Present Medications Home Medications: Ambulatory Orders Medication Instructions Recorded Confirmed Carvedilol [Coreg] 25 mg PO BID #60 tablet 08/16/19 Furosemide [Lasix] 40 mg PO DAILY #30 tablet 08/16/19 Hydralazine HCl 100 mg PO BID #60 tablet 08/16/19 Losartan Potassium 100 mg PO DAILY #30 tablet 08/16/19 Spironolactone [Aldactone] 25 mg PO DAILY #30 tablet 08/16/19 - Allergies Allergies/Adverse Reactions: Allergies Allergy/AdvReac Type Severity Reaction Status Date / Time No Known Drug Allergies Allergy Verified 12/01/18 20:29 - Social History Does the pt smoke?: Yes Smoking Status: Current every day smoker Does the pt drink ETOH?: No Does the pt have substance abuse?: No - Immunizations Immunizations are current?: Yes - POLST Patient has POLST: No POLST Status: Full Code PD ED PE NORMAL - Vitals Vital signs reviewed: Yes - General General: Alert and oriented X 3, No acute distress - HEENT HEENT: Moist mucous membranes - Neck Neck: Supple, no meningeal sign - Cardiac Cardiac: RRR, Strong equal pulses - Respiratory Respiratory: No respiratory distress, Clear bilaterally - Abdomen Abdomen: Soft, Non tender, Non distended - Back Back: No CVA TTP, No spinal TTP - Derm Derm: Warm and dry - Extremities Extremities: No edema, No calf tenderness / cord - Neuro Neuro: Alert and oriented X 3 - Psych Psych: Normal mood, Normal affect Results - Vitals Vitals: Vital Signs - 24 hr 03/22/20 19:45 Temperature 36.5 C Heart Rate 93 Respiratory 14 Rate Blood Pressure 152/100 H O2 Saturation 97 Oxygen O2 Source Room air - Labs Labs: Laboratory Tests 03/22/20 03/22/20 03/22/20 19:49 19:49 19:49 WBC 10.0 RBC 6.30 H Hgb 17.7 Hct 51.1 MCV 81.1 MCH 28.1 MCHC 34.6 RDW 12.0 Plt Count 277 MPV 11.1 Neut # (Auto) 6.6 Lymph # (Auto) 2.3 [place] # (Auto) 0.9 Eos # (Auto) 0.1 Baso # (Auto) 0.1 Absolute Nucleated RBC 0.00 Nucleated RBC % 0.0 VBG pH VBG pCO2 VBG pO2 VBG HCO3 VBG Total CO2 VBG O2 Saturation VBG Base Excess Sodium 122 L Potassium 4.7 Chloride 87 L Carbon Dioxide 22 Anion Gap 13.0 BUN 29 H Creatinine 1.5 H Estimated GFR (MDRD) 52 L Glucose 594 H* Estimat Average Glucose 384 H Hemoglobin A1c % 15.0 H Calcium 9.9 Total Bilirubin 1.1 H AST 25 ALT 39 Alkaline Phosphatase 126 H Total Protein 8.8 H Albumin 4.8 Globulin 4.0 Albumin/Globulin Ratio 1.2 Lipase 42 Urine Color Urine Clarity Urine pH Ur Specific [place] Urine Protein Urine Glucose (UA) Urine Ketones Urine Occult Blood Urine Nitrite Urine Bilirubin Urine Urobilinogen Ur Leukocyte Esterase Ur Microscopic Review Urine Culture Comments Nasal Adenovirus (PCR) Nasal B. parapertussis DNA (PCR) Nasal Coronavir 229E PCR Nasal Coronavir HKU1 PCR Nasal Coronavir NL63 PCR Nasal Coronavir OC43 PCR Nasal Enterovir/Rhinovir PCR Nasal Influenza B PCR Nasal Influenza A PCR Nasal Parainfluen 1 PCR Nasal Parainfluen 2 PCR Nasal Parainfluen 3 PCR Nasal Parainfluen 4 PCR Nasal RSV (PCR) Nasal B.pertussis DNA PCR Nasal C.pneumoniae (PCR) Cornelius Human Metapneumo PCR Nasal M.pneumoniae (PCR) Nasal SARS-CoV-2 (PCR) Urine Opiates Screen Ur Oxycodone Screen Urine Methadone Screen Ur Propoxyphene Screen Ur Barbiturates Screen Ur Tricyclics Screen Ur Phencyclidine Scrn Ur Amphetamine Screen U Methamphetamines Scrn U Benzodiazepines Scrn Urine Cocaine Screen U Cannabinoids Screen Ethyl Alcohol Serum Ketones SMALL H 03/22/20 03/22/20 03/22/20 19:49 19:49 20:15 WBC RBC Hgb Hct MCV MCH MCHC RDW Plt Count MPV Neut # (Auto) Lymph # (Auto) [place] # (Auto) Eos # (Auto) Baso # (Auto) Absolute Nucleated RBC Nucleated RBC % VBG pH 7.381 VBG pCO2 43.2 VBG pO2 28.7 VBG HCO3 25.0 VBG Total CO2 26.4 VBG O2 Saturation 64.3 VBG Base Excess -0.3 Sodium Potassium Chloride Carbon Dioxide Anion Gap BUN Creatinine Estimated GFR (MDRD) Glucose Estimat Average Glucose Hemoglobin A1c % Calcium Total Bilirubin AST ALT Alkaline Phosphatase Total Protein Albumin Globulin Albumin/Globulin Ratio Lipase Urine Color Urine Clarity Urine pH Ur Specific [place] Urine Protein Urine Glucose (UA) Urine Ketones Urine Occult Blood Urine Nitrite Urine Bilirubin Urine Urobilinogen Ur Leukocyte Esterase Ur Microscopic Review Urine Culture Comments Nasal Adenovirus (PCR) NOT DETECTED Nasal B. parapertussis DNA (PCR) NOT DETECTED Nasal Coronavir 229E PCR NOT DETECTED Nasal Coronavir HKU1 PCR NOT DETECTED Nasal Coronavir NL63 PCR NOT DETECTED Nasal Coronavir OC43 PCR NOT DETECTED Nasal Enterovir/Rhinovir PCR NOT DETECTED Nasal Influenza B PCR NOT DETECTED Nasal Influenza A PCR NOT DETECTED Nasal Parainfluen 1 PCR NOT DETECTED Nasal Parainfluen 2 PCR NOT DETECTED Nasal Parainfluen 3 PCR NOT DETECTED Nasal Parainfluen 4 PCR NOT DETECTED Nasal RSV (PCR) NOT DETECTED Nasal B.pertussis DNA PCR NOT DETECTED Nasal C.pneumoniae (PCR) NOT DETECTED Cornelius Human Metapneumo PCR NOT DETECTED Nasal M.pneumoniae (PCR) NOT DETECTED Nasal SARS-CoV-2 (PCR) NOT DETECTED Urine Opiates Screen Ur Oxycodone Screen Urine Methadone Screen Ur Propoxyphene Screen Ur Barbiturates Screen Ur Tricyclics Screen Ur Phencyclidine Scrn Ur Amphetamine Screen U Methamphetamines Scrn U Benzodiazepines Scrn Urine Cocaine Screen U Cannabinoids Screen Ethyl Alcohol < 5.0 Serum Ketones 03/22/20 20:38 WBC RBC Hgb Hct MCV MCH MCHC RDW Plt Count MPV Neut # (Auto) Lymph # (Auto) [place] # (Auto) Eos # (Auto) Baso # (Auto) Absolute Nucleated RBC Nucleated RBC % VBG pH VBG pCO2 VBG pO2 VBG HCO3 VBG Total CO2 VBG O2 Saturation VBG Base Excess Sodium Potassium Chloride Carbon Dioxide Anion Gap BUN Creatinine Estimated GFR (MDRD) Glucose Estimat Average Glucose Hemoglobin A1c % Calcium Total Bilirubin AST ALT Alkaline Phosphatase Total Protein Albumin Globulin Albumin/Globulin Ratio Lipase Urine Color YELLOW Urine Clarity CLEAR Urine pH 6.0 Ur Specific [place] 1.010 Urine Protein NEGATIVE Urine Glucose (UA) >=1000 H Urine Ketones TRACE Urine Occult Blood NEGATIVE Urine Nitrite NEGATIVE Urine Bilirubin NEGATIVE Urine Urobilinogen 0.2 (NORMAL) Ur Leukocyte Esterase NEGATIVE Ur Microscopic Review NOT INDICATED Urine Culture Comments NOT INDICATED Nasal Adenovirus (PCR) Nasal B. parapertussis DNA (PCR) Nasal Coronavir 229E PCR Nasal Coronavir HKU1 PCR Nasal Coronavir NL63 PCR Nasal Coronavir OC43 PCR Nasal Enterovir/Rhinovir PCR Nasal Influenza B PCR Nasal Influenza A PCR Nasal Parainfluen 1 PCR Nasal Parainfluen 2 PCR Nasal Parainfluen 3 PCR Nasal Parainfluen 4 PCR Nasal RSV (PCR) Nasal B.pertussis DNA PCR Nasal C.pneumoniae (PCR) Cornelius Human Metapneumo PCR Nasal M.pneumoniae (PCR) Nasal SARS-CoV-2 (PCR) Urine Opiates Screen NEGATIVE Ur Oxycodone Screen NEGATIVE Urine Methadone Screen NEGATIVE Ur Propoxyphene Screen NEGATIVE Ur Barbiturates Screen NEGATIVE Ur Tricyclics Screen NEGATIVE Ur Phencyclidine Scrn NEGATIVE Ur Amphetamine Screen POSITIVE H U Methamphetamines Scrn POSITIVE H U Benzodiazepines Scrn NEGATIVE Urine Cocaine Screen NEGATIVE U Cannabinoids Screen NEGATIVE Ethyl Alcohol Serum Ketones PD MEDICAL DECISION MAKING - ED course Complexity details: reviewed results, re-evaluated patient, considered differential, d/w patient, d/w retail sales consultant ED course: 39-year-old male presents to the emergency department with hyperglycemia, small ketones, but not acidotic. Given IV fluids and insulin. Hemoglobin A1c is 15. We will place the patient observation for blood sugar control, rehydration and reevaluation. Discussed the case with Dr. Hope, hospitalist who accepts. This document was made in part using voice recognition software. While efforts are made to proofread this document, sound alike and grammatical errors may occur. Departure - Departure Disposition: ED Place in Observation Clinical Impression: Hyperglycemia, Hyponatremia Condition: Stable
[2020-03-22 20:09] LABS: ALBUMIN 4.8 g/dL (3.2-5.5); ALBUMIN/GLOBULIN RATIO 1.2 (1.0-2.2); ALKALINE PHOSPHATASE 126 IU/L (42-121); ALT ALANINE AMINOTRANSFERASE 39 IU/L (10-60); AST ASPARTATE AMINOTRANSFERASE 25 IU/L (10-42); BILIRUBIN,TOTAL 1.1 mg/dL (0.2-1.0); BUN - BLOOD UREA NITROGEN 29 mg/dL (6-20); CALCIUM 9.9 mg/dL (8.5-10.3); CARBON DIOXIDE - CO2 22 mmol/L (21-32); CHLORIDE 87 mmol/L (101-111); CREATININE 1.5 mg/dL (0.6-1.2); LIPASE 42 U/L (22-51); TOTAL PROTEIN 8.8 g/dL (6.7-8.2)
[2020-03-22 20:13] LABS: GLUCOSE 594 mg/dL (70-100)
[2020-03-22 20:14] LABS: KETONES, SERUM (ACETEST) SMALL (NEGATIVE)
[2020-03-22 20:15] LABS: VBG BASE EXCESS -0.3 mmol/L (-2 - +2); VBG PCO2 43.2 mmHg (41-51); VBG PH 7.381 (7.31-7.41); VBG PO2 28.7 mmHg (25-47); VBG TOTAL CO2 26.4 mmol/L (24-29)
[2020-03-22] MEDS ORDERED: INSULIN REGULAR HUMAN 100 UNIT/1 ML 10 ML MDV IVP STA (20:17)
[2020-03-22] MEDS ORDERED: INSULIN REGULAR HUMAN 100 UNIT/1 ML 10 ML MDV SUBQ STA (20:17)
[2020-03-22] MEDS ORDERED: SODIUM CHLORIDE 0.9% 1,000 ML IV STA ×2 (20:18)
[2020-03-22 20:45] LABS: MUDS CUTOFF CONCENTRATIONS CUTOFF CONC BELOW:
[2020-03-22 20:48] LABS: BILIRUBIN,URINE NEGATIVE (NEGATIVE); GLUCOSE, URINE (UA) >=1000 mg/dL (NEGATIVE); KETONES,URINE (UA) TRACE mg/dL (NEGATIVE); LEUKOCYTE ESTERASE, URINE NEGATIVE (NEGATIVE); NITRITE,URINE NEGATIVE (NEGATIVE); OCCULT BLOOD,URINE NEGATIVE (NEGATIVE); PROTEIN,URINE NEGATIVE (NEGATIVE); UROBILINOGEN,URINE 0.2 (NORMAL) E.U./dL (NORMAL)
[2020-03-22 20:53] LABS: CLARITY,URINE CLEAR (CLEAR)
[2020-03-22 20:59] LABS: AMPHETAMINE SCREEN,URINE POSITIVE (NEGATIVE); BENZODIAZEPINES SCREEN, URINE NEGATIVE (NEGATIVE); COCAINE SCREEN URINE NEGATIVE (NEGATIVE); METHADONE SCREEN, URINE NEGATIVE (NEGATIVE); METHAMPHETAMINES SCREEN, URINE POSITIVE (NEGATIVE); OPIATE SCREEN, URINE NEGATIVE (NEGATIVE); OXYCODONE SCREEN, URINE NEGATIVE (NEGATIVE); PROPOXYPHENE SCREEN, URINE NEGATIVE (NEGATIVE); TRICYCLIC ANTIDEPRESSANT,URINE NEGATIVE (NEGATIVE)
[2020-03-22 21:22] LABS: C. PNEUMONIAE- RESP PCR PANEL NOT DETECTED
[2020-03-22] MEDS ORDERED: ONDANSETRON ODT 4 MG TABLET TL PRN (21:27)
[2020-03-22] MEDS ORDERED: SODIUM CHLORIDE FLUSH 0.9% 10 ML SYRINGE IVP PRN (21:27)
[2020-03-22] MEDS ORDERED: ONDANSETRON 4 MG/2 ML VIAL IVP PRN (21:27)
[2020-03-22] MEDS ORDERED: INSULIN GLARGINE 300 UNIT/3 ML PEN SUBQ SCH (21:30)
--- NOTE | 2020-03-22 21:31 | HISTORY & PHYSICAL EXAMINATION ---
Chief Complaint - Chief Complaint Chief Complaint: High blood sugar History of Present Illness - Admitted From Admitted From:: Home - History Obtained From Records Reviewed: Yes History obtained from: Patient, ER Physician, EMR - History of Present Illness HPI Comment/Other: This is a 47-year-old male with a past medical history significant for type 2 diabetes mellitus, nonischemic cardiomyopathy, hypertension, methamphetamine abuse who presents today due to having a high blood sugar reading at home. He states for the past week he has felt unwell overall. He states he developed blurry vision, polyuria and polydipsia over the past week. He has also been nauseous and complaining of mild abdominal pain. He checked his blood glucose today given the above symptoms and the glucometer read high and so he came to the emergency department. He tells me he was diagnosed with type 2 diabetes mellitus in 2011. He was initially treated with insulin and Metformin for about 6 months and then he was able to control his diabetes with diet and exercise alone. He does not check his blood glucose regularly. His A1c about 6 months ago was 6-1/2%. He reports no fevers or chills. He states he is a history of methamphetamine use and he has not used up until this past week. He states he began using methamphetamine again due to him not feeling well. He denies any IV drug use. In the emergency department, he was found to be hemodynamically stable. His blood glucose was elevated at 594. His sodium was 122. Serum ketones were small. His anion gap and bicarbonate were normal. He was given normal saline and 6 units of IV insulin in the emergency department. Given his significant hyperglycemia, medicine was consulted for admission. 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 He denies any history of malignancy. He does not believe his mother has any medical problems. Living arrangement: At home Living Situation: With family Social History Notes: Lives at home with his family. He admits to marijuana use. He also has a history of methamphetamine use and states he had been clean for a period of time up until this past week. His urine toxicology is positive for methamphetamines. - Substance History Use: Uses substance without health or social issues: Cannabis Abuse: Recurrent use of substance despite neg consequences: Amphetamine - POLST Patient has POLST: No POLST Status: Full Code Meds/Allgy - Home Medications Home Medications: Ambulatory Orders Medication Instructions Recorded Confirmed Carvedilol [Coreg] 25 mg PO BID #60 tablet 08/16/19 Furosemide [Lasix] 40 mg PO DAILY #30 tablet 08/16/19 Hydralazine HCl 100 mg PO BID #60 tablet 08/16/19 Losartan Potassium 100 mg PO DAILY #30 tablet 08/16/19 Spironolactone [Aldactone] 25 mg PO DAILY #30 tablet 08/16/19 - Allergies Allergies/Adverse Reactions: Allergies Allergy/AdvReac Type Severity Reaction Status Date / Time No Known Drug Allergies Allergy Verified 12/01/18 20:29 Review of Systems - Constitutional Constitutional: reports: Malaise. denies: Fever, Chills - Eyes Eyes: reports: Blurred vision - Ears, Nose & Throat Ears, Nose & Throat: denies: Nasal discharge, Sore throat - Cardiovascular Cariovascular: denies: Chest pain, Edema, Exertional dyspnea, Decr. exercise tolerance - Respiratory Respiratory: denies: Cough, SOB at rest, SOB with exertion - Gastrointestinal Gastrointestinal: reports: Abdominal pain, Nausea. denies: Constipation, Diarrhea, Change in bowel habits, Vomiting - Genitourinary Genitourinary: denies: Dysuria, Urgency, Hematuria - Neurological Neurological: reports: Dizziness. denies: General weakness, Focal weakness - Endocrine Endocrine: reports: Polyuria, Polydypsia - All Other Systems All Other Systems: reports: Reviewed and negative Prior Level of Functionality: He is independent with his ADL's. Exam - Vital Signs Reviewed Vital Signs: Yes Vital Signs: Vital Signs x48h Temp Pulse Resp BP Pulse Ox 03/22/20 19:45 36.5 C 93 14 152/100 H 97 - Physical Exam General Appearance: positive: Alert, Mild distress Eyes Bilateral: positive: Normal inspection, Conjunctivae nml ENT: positive: ENT inspection nml, Dry mucous membranes. negative: No signs of dehydration Neck: positive: Nml inspection Respiratory: positive: No respiratory distress. negative: Wheezes, Rales Cardiovascular: positive: Regular rate & rhythm, No murmur. negative: Tachycardia Abdomen: positive: Nml bowel sounds, No distention. negative: Tenderness (Mild diffuse tenderness.), Guarding, Rebound Skin: positive: Warm, Dry Extremities: positive: Pedal edema (Trace edema in bilateral lower extremities.) Neurologic/Psychiatric: positive: Oriented x3, Motor nml Conclusion/Plan - Problem List (1) Type 2 diabetes mellitus with hyperglycemia Conclusion/Plan: He has a known history of type 2 diabetes mellitus which has been diet co ntrolled. He now presents with hyperglycemia with a blood glucose nearly 600. His A1c is 15%. We will place him in observation for some gentle IV hydration and initiation of insulin. We will place him on Lantus 20 units this evening which approximately is 0.2 units/kg. We will likely initiate Metformin on discharge as well. We will asked the family educator to see him as well as the wiring inspector. Carb controlled diet once his blood glucose is better controlled. He has an appointment with his primary care provider on 14 April and I have asked him to make a daily log of his blood glucose as he will need adjustment of his insulin regimen. (2) Hyponatremia Conclusion/Plan: This is liekly multifactorial. Likely component of hypovolemic hyponatremia and pseudohyponatremia given the hyperglycemia. His corrected sodium is still in the low 130s. This should improve with IV fluids as he appears hypovolemic. We will give him a liter of saline overnight. Recheck BMP in the morning. (3) Nonischemic cardiomyopathy Conclusion/Plan: Last echo we have available revealed an ejection fraction of 20 to 25%. He does have trace edema but overall he does appear hypovolemic with dry oral mucosa. We will gently hydrate him overnight with a liter of saline. We will resume his home cardiac medications in the morning. Counseled on importance of methamphetamine cessation given his cardiomyopathy. He will need outpatient follow-up with cardiology. (4) CKD (chronic kidney disease) stage 3, GFR 30-59 ml/min Conclusion/Plan: His baseline creatinine is approximately 1.2 and his creatinine is mildly elevated at this time at 1.5. There may be a component of mild prerenal injury. We will gently hydrate him overnight with a liter of saline. Recheck BMP in the morning. We will likely resume his home medications in the a.m. including his angiotensin receptor regina. (5) Hypertension Conclusion/Plan: His blood pressure is elevated systolic in the 150s. We will resume his home antihypertensives. Qualifiers: Hypertension type: essential hypertension Qualified Code(s): I10 - Essential (primary) hypertension (6) Methamphetamine abuse Conclusion/Plan: He does admit to methamphetamine use and his urine toxicology is once again positive. I once again counseled him on the importance of methamphetamine cessation. We will ask social work to provide him with resources to assist with this. - Lab Results Lab results reviewed: Yes Gregorio Bones: 03/22/20 19:49 03/22/20 19:49 Core Measures - Anticipated LOS I expect patient to be DC'd or transferred within 96 hours.: Yes - Issues Hospital Issues and Management Plan: 39-year-old male with a history of type 2 diabetes mellitus which has been diet controlled presents with hyperglycemia. Will place in observation for initiation of insulin and gentle IV hydration. - DVT/VTE - Prophylaxis VTE/DVT Device ordered at admit?: No Not Ordered - Low Risk: Very low risk VTE/DVT Prophylaxis med ordered at admit?: No Not Ordered - Medical Reason: Not indicated
[2020-03-22] MEDS ORDERED: SODIUM CHLORIDE 0.9% 1,000 ML IV SCH (22:00)
[2020-03-23] MEDS: SODIUM CHLORIDE FLUSH 0.9% 10 ML SYRINGE IVP SCH ×2 (01:09→07:57)
[2020-03-23] MEDS: ACETAMINOPHEN 325 MG TABLET PO PRN ×3 (01:09→12:16)
[2020-03-23 05:43] LABS: CALCIUM 8.7 mg/dL (8.5-10.3); CREATININE 1.4 mg/dL (0.6-1.2)
[2020-03-23] MEDS ORDERED: INSULIN ASPART 300 UNIT/3 ML PEN SUBQ SCH ×4 (08:00→12:00)
[2020-03-23] MEDS ORDERED: INSULIN GLARGINE 300 UNIT/3 ML PEN SUBQ SCH (09:00)
[2020-03-23] MEDS ORDERED: SODIUM CHLORIDE 0.9% 1,000 ML IV SCH ×4 (09:00)
[2020-03-23] MEDS ORDERED: INSULIN ASPART 300 UNIT/3 ML PEN SUBQ ONE ×2 (10:24→10:50)
--- NOTE | 2020-03-23 14:02 | PHARMACY PROGRESS NOTE ---
- Best Possible Medication History Admit Date and Time: 03/22/202126 Processed by: Pharmacy Medication History completed: Yes Patient Interview: Completed Secondary Source(s): Physician records, Pharmacy records, Insurance records (PATIENT INTERVIEWED BY PHARMACY. PATIENT ABLE TO CONFIRM HOME MEDICATIONS ) As the person ultimately responsible for medication therapy, providers are able to order a medication from an existing home medication list in [facility] via the "Reconcile Routine" prior to Confirmation of that medication by senior safety support manager. Such practice is discouraged except when the physician, in their clinical judgment, deems that a medical need exists for a medication without regard to previous use.
--- NOTE | 2020-03-23 14:56 | Discharge Plan ---
Discharge Plan Problem Reviewed?: Yes Disposition: Home, Self Care Condition: Stable Prescriptions: Blood-Glucose Meter [Glucometer] 1 each QID #1 each Blood Sugar Diagnostic [Glucometer Strips] 1 each QID #100 strip metFORMIN [Glucophage] 500 mg PO BIDWM #60 tablet Lancets 1 each QID #100 each Insulin Glargine [Lantus Solostar] 10 unit SUBQ QDBREAKFAST #5 pen Insulin Glargine [Lantus Solostar] 20 unit SUBQ QPM #5 pen Insulin Aspart [NovoLOG] 3 - 11 unit SUBQ 0800,1200,1700,2100 #10 pen Diet: Diabetic Activity Restrictions: Activity as Tolerated Shower Restrictions: No (fall precaution) Instruction Topics: Metformin tablets, Heart Failure, Hyperglycemia, Hypoglycemia, Diabetes Type 2 Coping, Diabetes Type 2 Oral Meds, Diabetes Check Blood Sugar Ch, Diabetes High Blood Sugar Ch, Heart Failure Coping, Heart Failure Congestive Ch, Diabetes Dx, Diabetic Ketoacidosis, Hyperglycemia Steps Health Concerns: uncontrolled diabetes, hyperglycemia, CHF Plan of Treatment: your A1c is 15, and significantly hyperglycemia, you are prescribed long acting insulin Lantus, and short acting insulin Novolog and slide scale, and metformin. you may followup with PCP continue management of your diabetes. You have significant heart failure disease, you may followup with wheelchair van driver as out-pt Care Goals: stabilization and improvement of your medical conditions Assessment: discussed the care plan with you, answered your questions, you understood. Additional Instructions or Follow Up instructions: you may followup with your PCP in one week, followup with wheelchair van driver as out- pt. Should your symptoms return or worsen, you may present ER or call 911 for help. Follow-Up Care: [facility], [facility], [facility] - Diabetes Ed No Smoking: If you smoke, Please STOP! Call for help. Follow-up with: Fernando Lu MD [Primary Care Provider] -
--- NOTE | 2020-03-23 15:31 | DISCHARGE SUMMARY ---
Discharge Summary Admit Date: 03/22/20 Discharge Date: 03/23/20 Discharging Provider: Arden Combs Primary Care Provider: Fernando Manrique Code Status: Attempt Resuscitation Condition at Discharge: Stable Discharge Disposition: 01 Home, Self Care Discharge Facility Name: home - DIAGNOSES Discharge Diagnoses with Status of Each Condition: (1) Type 2 diabetes mellitus with hyperglycemia After pt was given insulin, her glucose is down to 260. pt had nearly 600 glucose and A1C 15% at the admission. pt is prescribed long and short acting insulin and metformin for d/c to home. pt is prescribed Diabetic management devices. Patient had a diabetic education consult in hospital, And follow-up [facility] clinic with diabetic education, And follow-up his PCP continue management of diabetic. (2) Hyponatremia improved, Sodium is 128 From admission 122. pt's sodium is expected to increase after pt had tightly glucose control in home. pt may followup with his PCP continue blood work check and DM2 management in one week. (3) Nonischemic cardiomyopathy stable, pt's last echo revealed an ejection fraction of 20 to 25%. pt may followup with security sergeant for out-pt. pt may followup with CHF well fitness in [facility] clinic. Counseled on importance of methamphetamine cessation given his cardiomyopathy. (4) CKD (chronic kidney disease) stage 3, GFR 30-59 ml/min improved and stable (5) Hypertension stable (6) Methamphetamine abuse pt does admit to methamphetamine use and his urine toxicology is once again positive. counseled pt for the importance of methamphetamine cessation. co nsulted social work to assist with him for cessation. - HPI History of Present Illness: refer from 's HPI on 03/22/20 This is a 47-year-old male with a past medical history significant for type 2 diabetes mellitus, nonischemic cardiomyopathy, hypertension, methamphetamine abuse who presents today due to having a high blood sugar reading at home. He states for the past week he has felt unwell overall. He states he developed blurry vision, polyuria and polydipsia over the past week. He has also been nauseous and complaining of mild abdominal pain. He checked his blood glucose today given the above symptoms and the glucometer read high and so he came to the emergency department. He tells me he was diagnosed with type 2 diabetes mellitus in 2011. He was initially treated with insulin and Metformin for about 6 months and then he was able to control his diabetes with diet and exercise alone. He does not check his blood glucose regularly. His A1c about 6 months ago was 6-1/2%. He reports no fevers or chills. He states he is a history of methamphetamine use and he has not used up until this past week. He states he began using methamphetamine again due to him not feeling well. He denies any IV drug use. In the emergency department, he was found to be hemodynamically stable. His blood glucose was elevated at 594. His sodium was 122. Serum ketones were small. His anion gap and bicarbonate were normal. He was given normal saline and 6 units of IV insulin in the emergency department. Given his significant hyperglycemia, medicine was consulted for admission. - HOSPITAL COURSE Hospital Course: pt was Admitted for hyperglycemia glucose nearly 600 with nausea and mild abdominal pain. pt did not take insulin or DM2 medications at home. After patient treated with insulin, Intravenous IV fluids, Patient glucose was down 260. Patient feels better, symptoms were resolved. Patient was prescribed Short- acting, long-acting insulin and Metformin, And device for diabetic management. Patient had diabetic education consult in hospital. Patient had consult and social work consult for quit methamphetamine. Patient was advised to follow-up security sergeant as outpatient,Follow-up with [facility] clinic for CHF well fitness. - ALLERGIES Allergies/Adverse Reactions: Allergies Allergy/AdvReac Type Severity Reaction Status Date / Time No Known Drug Allergies Allergy Verified 12/01/18 20:29 - MEDICATIONS Home Medications: Ambulatory Orders Medication Instructions Recorded Confirmed Carvedilol [Coreg] 25 mg PO BID #60 tablet 08/16/19 03/23/20 Furosemide [Lasix] 40 mg PO DAILY #30 tablet 08/16/19 03/23/20 Hydralazine HCl 100 mg PO BID #60 tablet 08/16/19 03/23/20 Losartan Potassium 100 mg PO DAILY #30 tablet 08/16/19 03/23/20 Spironolactone [Aldactone] 25 mg PO DAILY #30 tablet 08/16/19 03/23/20 Blood Sugar Diagnostic [Glucometer 1 each QID #100 strip 03/23/20 Strips] Blood-Glucose Meter [Glucometer] 1 each QID #1 each 03/23/20 Insulin Aspart [NovoLOG] 3 - 11 unit SUBQ 03/23/20 0800,1200,1700,2100 #10 pen Insulin Glargine [Lantus Solostar] 10 unit SUBQ QDBREAKFAST #5 pen 03/23/20 Insulin Glargine [Lantus Solostar] 20 unit SUBQ QPM #5 pen 03/23/20 Lancets 1 each MC QID #100 each 03/23/20 metFORMIN [Glucophage] 500 mg PO BIDWM #60 tablet 03/23/20 - PHYSICAL EXAM AT DISCHARGE General Appearance: positive: No acute distress, Alert. negative: Lethargic Eyes Bilateral: positive: Normal inspection, PERRL, No lid inflammation ENT: positive: ENT inspection nml, No signs of dehydration. negative: Purulent nasal drainage Neck: positive: Nml inspection, Trachea midline. negative: Thyromegaly, Tracheal deviation Respiratory: positive: Chest non-tender, No respiratory distress, Breath sounds nml. negative: Wheezes, Rales Cardiovascular: positive: Regular rate & rhythm, No murmur. negative: Tachycardia, Bradycardia, Systolic murmur, Diastolic murmur Peripheral Pulses: positive: 2+ Abdomen: positive: Non-tender, Nml bowel sounds, No distention. negative: Tenderness, Guarding, Rebound Back: positive: Nml inspection Skin: positive: Color nml, Warm, Dry. negative: Cyanosis, Diaphoresis, Pallor Extremities: positive: Non-tender, Full ROM, Nml appearance. negative: Calf tenderness Neurologic/Psychiatric: positive: Oriented x3, Motor nml, Sensation nml, Mood/affect nml. negative: Weakness, Sensory loss, Facial droop, Slurred/abnml speech, Depressed mood/affect - LABS Result Diagrams: 03/22/20 19:49 03/23/20 04:11 - FOLLOW UP Follow Up: your A1c is 15, and significantly hyperglycemia, you are prescribed long acting insulin Lantus, and short acting insulin Novolog with slide scale, and metformin, device of DM2 management. you may followup with PCP continue management of your diabetes. You have significant heart failure disease, you may followup with security sergeant as out-pt you may followup with your PCP in one week and have blood work BMP, followup with security sergeant as out-pt, Follow-up [facility] clinic for well fitness CHF course. Should your symptoms return or worsen, you may present ER or call 911 for help. - TIME SPENT Time Spent in Discharge (Minutes): 30
[2020-03-23 16:11] VITALS: BP 151/102
== END 2020-03-23 16:44 | disposition home or self-care (01) ==
LOC: EDUNIT# → ED 19:40 → SUPCPDRO 19:40 → MS2 21:27
PROVIDERS: ADMIT Internal Medicine; ATTEND Nurse Practitioner Gerontology
DX: E11.65 Type 2 diabetes mellitus with hyperglycemia (principal); E87.1 Hypo-osmolality and hyponatremia; I42.8 Other cardiomyopathies; E11.22 Type 2 diabetes mellitus with diabetic chronic kidney disease; I13.0 Hypertensive heart and chronic kidney disease with heart failure and stage 1 through stage 4 chronic kidney disease, or unspecified chronic kidney disease; I50.9 Heart failure, unspecified; F17.200 Nicotine dependence, unspecified, uncomplicated; N18.30 Chronic kidney disease, stage 3 unspecified; F15.10 Other stimulant abuse, uncomplicated; Z20.822 Contact with and (suspected) exposure to COVID-19
CPT/HCPCS: 0202U; 36415; 80048; 80053; 80306; 80320; 81003; 82009; 82803; 83036; 83690; 85025; 96360; 99284; 99285; A9270; G0378; J1815; Q0162; 81001; 87086

== ENCOUNTER 2021-10-13 05:38 | Outpatient (CLI) | payer MEDICAID | END 2021-10-13 05:39 | disposition critical access hospital (66) | LOC: EMS 05:38 | DX: I46.9 Cardiac arrest, cause unspecified (principal) | CPT/HCPCS: A0425; A0433; A0999 ==

== ENCOUNTER 2021-10-13 05:52 | Emergency (ER) | payer MEDICAID ==
[2021-10-13] MEDS ORDERED: EPINEPHrine 1 MG/ML AMP ONE (06:18)
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
--- NOTE | 2021-10-13 06:21 | ED Physician Documentation ---
PD HPI CPR - Stated complaint Stated Complaint: CPR - Chief complaint Chief Complaint: Cardiac - History obtained from History obtained from: EMS - History of Present Illness Timing - onset: How many hours ago (over 1 hour), Today Timing - onset during: Other (unknown) Contributing factors: CAD (CHF and diabetes.), Diabetes Recently seen: Emergency Dept (about 3 weeks ago for anxiety and substance abuse.) Witnessed: Arrest not witnesssed (Found down by family with unknown downtime. No pulses or breathing noted. CPR started and EMS called. 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 CUTTER: CPR, BVM, Intubated, Epi, Sodium Bicarb, IO Advanced directive: No advanced directive Review of Systems Unable to obtain: Unresponsive, Intubated PD PAST MEDICAL HISTORY - Past Medical History Cardiovascular: Congestive heart failure, Hypertension Respiratory: Pneumonia, Sleep apnea Neuro: None Endocrine/Autoimmune: Type 2 diabetes GI: None : None HEENT: None Psych: Depression, Anxiety Musculoskeletal: None Derm: None - Past Surgical History Past Surgical History: Yes General: Other HEENT: Tonsil/Adenoidectomy - Present Medications Home Medications: Ambulatory Orders Medication Instructions Recorded Confirmed Carvedilol [Coreg] 25 mg PO BID #60 tablet 08/16/19 09/20/21 Furosemide [Lasix] 40 mg PO DAILY #30 tablet 08/16/19 09/20/21 Hydralazine HCl 100 mg PO BID #60 tablet 08/16/19 09/20/21 Losartan Potassium 100 mg PO DAILY #30 tablet 08/16/19 09/20/21 Spironolactone [Aldactone] 25 mg PO DAILY #30 tablet 08/16/19 09/20/21 Blood Sugar Diagnostic [Glucometer 1 each QID #100 strip 03/23/20 09/20/21 Strips] Blood-Glucose Meter [Glucometer] 1 each QID #1 each 03/23/20 09/20/21 Insulin Aspart [NovoLOG] 3 - 11 unit SUBQ 03/23/20 09/20/21 0800,1200,1700,2100 #10 pen Insulin Glargine [Lantus Solostar] 10 unit SUBQ QDBREAKFAST #5 pen 03/23/20 09/20/21 Insulin Glargine [Lantus Solostar] 20 unit SUBQ QPM #5 pen 03/23/20 09/20/21 Lancets 1 each MC QID #100 each 03/23/20 09/20/21 metFORMIN [Glucophage] 500 mg PO BIDWM #60 tablet 03/23/20 09/20/21 - Allergies Allergies/Adverse Reactions: Allergies Allergy/AdvReac Type Severity Reaction Status Date / Time No Known Drug Allergies Allergy Verified 09/20/21 05:58 - Living Situation Living Situation: reports: With spouse/s.o. Living Arrangement: reports: At home - Social History Does the pt smoke?: Yes Smoking Status: Current every day smoker Does the pt drink ETOH?: No Does the pt have substance abuse?: Yes - Immunizations Immunizations are current?: Yes - POLST Patient has POLST: No POLST Status: Full Code PD ED PE NORMAL - Vitals Vital signs reviewed: Yes (intubated. joyner/dusky color generally.) - HEENT HEENT: Other (fixed and dilated pupils.) - Neck Neck: Other (JVD noted) - Cardiac Cardiac: Other (No palpable pulses nor heart sounds heard by auscultation. Bedside ultrasound showed minimal contractility generally with less on the left ventricle.) - Respiratory Respiratory: Other (Breath sounds heard symmetrically with bagged ventilations via ET tube. End-tidal CO2 16 initially.) - Abdomen Abdomen: No: Normal bowel sounds (no bowel sounds) - Derm Derm: No: Normal color (dusky and joyner color generally. ) - Extremities Extremities: Other (1+ edema in both lower legs/ankles. ) Results - Vitals Vitals: Oxygen O2 Source Room air PD MEDICAL DECISION MAKING - ED course Complexity details: re-evaluated patient (ACLS measures were continued with epinephrine, bicarb, epi drip. End-tidal CO2 was showing only 16. Subsequent pulse check at appropriate interval now showed an agonal appearing rhythm with wide complexes and rate of 30-40 on monitor. No palpable pulses. US showed essentially no contractility.), considered differential (EMS had prolonged prehospital time of over an hour with initial asystole. Bystander CPR after unknown downtime but likely 5 to 10 minutes. On arrival the patient has PEA with a rhythm on monitor at the first pulse check but no palpable pulses. Bedside ultrasound showed minimal contractility.) - Critical Care Time(min): 20 Time Includes: Direct patient care, Coordinate care Data interpretation: Pulse ox (and end tidal CO2) Procedures excluded from critical care time: CPR
[2021-10-13 07:24] VITALS: BP 0/0
== END 2021-10-13 06:16 | disposition expired ==
LOC: EDUNIT# → ED 05:52
DX: I46.9 Cardiac arrest, cause unspecified (principal); I10 Essential (primary) hypertension; E11.9 Type 2 diabetes mellitus without complications; Z79.4 Long term (current) use of insulin; F17.200 Nicotine dependence, unspecified, uncomplicated
CPT/HCPCS: 36415; 51702; 80048; 92950; 99284